=== PATIENT | female | born 1935 | race Caucasian/White ===

== ENCOUNTER 2016-05-15 11:50 | Inpatient (IN) | payer OTHER, MEDICARE ==
[~2016-05-15] VITALS: Ht 165.1 cm; Wt 63.7 kg
[~2016-05-15 11:50] MED LIST: ALBU0.08 INH; ALBU1AER9; ATRINSX NEB; BRVIN; BUDE0.5S NEB; FLUT0.15 NAE; MONT1TAB3 PO; OXYC1TAB3 PO
[2016-05-15 12:18] LABS: BASO % 0.3 %; BASO ABS # 0.04 K/uL (0-0.2); COMPLETE YES; EOS % 1.9 %; HEMATOCRIT 41.5 % (37-47); IG% 0.2 %; LYMPH % 12.7 %; LYMPH ABS # 1.51 K/uL (1.2-3.4); MEAN CELL VOLUME 94.5 fL (80-100); MEAN CORPUSCULAR HEMOGLOBIN 30.1 pg (25-34); MEAN CORPUSCULAR HGB CONC 31.8 g/dl (32-36); MEAN PLATELET VOLUME 10.4 fL (7.4-10.4); MONO % 14.6 %; NEUT % 70.3 %; PLATELET COUNT 247 K/uL (130-400); RED BLOOD COUNT 4.39 M/uL (4.2-5.4); WHITE BLOOD COUNT 11.88 K/uL (4.8-10.8)
[2016-05-15 12:26] LABS: BUN/CREATININE RATIO 31.4 (10-20); CALCIUM 9.3 mg/dl (8.5-10.1); CREATININE 0.92 mg/dl (0.60-1.20)
[2016-05-15 12:27] LABS: INR 1.1 (0.9-1.1); PROTHROMBIN TIME (PATIENT) 11.3 SECONDS (9.0-12.0)
[2016-05-15 12:36] LABS: ALB/GLOB RATIO 0.8 (0.9-2); THYROID STIMULATING HORMONE 0.705 uIu/ml (0.300-4.500)
[2016-05-15] MEDS ORDERED: OPTIRAY 320 IV PRN (13:00)
--- NOTE | 2016-05-15 13:41 | DIAGNOSTIC IMAGING REPORT ---
CT HEAD WITHOUT CONTRAST (CT) CLINICAL HISTORY: Altered level of consciousness. COMPARISON STUDY: 02/22/2015 TECHNIQUE: Axial CT of the brain is performed from the vertex to the skull base. IV contrast was not administered for this examination. CT DOSE: 2118.22 mGy.cm FINDINGS: No intra or extra-axial mass lesions are visualized. There is no CT evidence of acute cortical infarction. There is no evidence of midline shift. There is no acute hemorrhage. No calvarial fractures are visualized. There are moderate white matter hypodensities likely on a small vessel basis. There is mild ventricular prominence, proportional to the degree of volume loss. There is no evidence of acute sinusitis IMPRESSION: No acute intracranial findings Electronically signed by: Jason Yap M.D. 05/15/2016 1:40 PM
--- NOTE | 2016-05-15 13:51 | DIAGNOSTIC IMAGING REPORT ---
CT ANGIOGRAM OF THE CHEST, ABDOMEN, AND PELVIS CLINICAL HISTORY: Chest and abdominal pain. Altered level of consciousness. Possible acute dissection. COMPARISON STUDY: Noncontrast CT scan of the abdomen pelvis dated 05/09/2016 TECHNIQUE: Before and following the IV administration of 119 mL of Optiray-320, CT angiogram of the chest, abdomen, and pelvis was performed from the thoracic inlet to the proximal femurs. Images are reviewed in the axial, sagittal, and coronal planes. IV contrast was administered without complication. Imaged portions of the thyroid gland are normal in appearance. CT DOSE: FINDINGS: CHEST: Thoracic aorta: There is no evidence of thoracic aortic aneurysm or dissection. There are moderate atheromatous changes within the aortic arch and descending thoracic aorta. Several ulcerated plaques are visualized within the descending thoracic aorta. Atheromatous changes are present within the proximal left subclavian artery. Pulmonary vasculature: The pulmonary trunk is normal in caliber. There are no filling defects in the main, lobar, or segmental pulmonary branches to suggest pulmonary embolus. HEART: There are coronary artery calcifications present. Lungs and pleural spaces: There is severe pulmonary emphysema. There is no acute parenchymal consolidation. Mediastinum: There is no evidence of pathologic adenopathy So: There is no evidence of pathologic adenopathy Axilla: Clear. ABDOMEN AND PELVIS: Liver: There is mild hepatic steatosis. No focal masses are visualized. Gallbladder: Unremarkable. Spleen: Normal in size and attenuation. Pancreas: Unremarkable. Adrenal glands: Unremarkable. Kidneys: There is symmetric renal cortical enhancement. The kidneys are normal in size without hydronephrosis. Bowel: There are no transition zones indicate bowel obstruction. The appendix appears normal. There is no acute diverticulitis. There is mild distal small bowel wall hyperenhancement. This could indicate enteritis. Peritoneum: There is no intraperitoneal free air or abdominal ascites. There is a small fat-containing umbilical hernia and small fat-containing left inguinal hernia. Abdominal aorta: There are moderately advanced diffuse atheromatous changes present. There is a partially thrombosed 47 mm infrarenal abdominal aortic aneurysm. There are no findings to indicate rupture. There is no evidence of hemodynamically significant celiac, superior mesenteric, or renal artery stenosis. Adenopathy: None. Pelvic viscera: The bladder, and pelvic viscera are unremarkable. Skeletal structures: There are superior endplate T12 and L1 compression deformities. There are postsurgical changes within the lumbar spine with posterior spinal fusion IMPRESSION: 1. 47 mm partially thrombosed infrarenal abdominal aortic aneurysm. No evidence of rupture 2. No evidence of thoracic aortic aneurysm or dissection 3. Moderately advanced atheromatous changes within the thoracic and abdominal aorta 4. No evidence of bowel obstruction. No evidence of free air. Normal appendix 5. Mild distal small bowel hyperenhancement. An enteritis cannot be excluded Electronically signed by: Jason Yap M.D. 05/15/2016 1:49 PM
--- NOTE | 2016-05-15 13:57 | DIAGNOSTIC IMAGING REPORT ---
CHEST ONE VIEW PORTABLE CLINICAL HISTORY: Acute change in mental status. Back pain. Abdominal pain. COMPARISON STUDY: 05/09/2016 FINDINGS: The heart is normal in size. There is radiographic evidence of severe pulmonary emphysema. Spinal electrodes are visualized. There is no acute parenchymal consolidation. There is no failure.[ No pleural effusions are visualized. IMPRESSION: Severe pulmonary emphysema. No acute findings. Electronically signed by: Jason Yap M.D. 05/15/2016 1:55 PM
[2016-05-15 15:28] LABS: URINE APPEARANCE CLEAR (CLEAR); URINE BILIRUBIN NEG (NEG); URINE COLOR DK YELLOW; URINE EPITHELIAL CELL AUTO 20-30 /lpf (0-5); URINE NITRITE NEG (NEG); URINE SPECIFIC GRAVITY > 1.045 (1.000-1.030); UROBILINOGEN NEG (NEG); ZZUR CULT IF INDIC CLEAN CATCH YES
[2016-05-15 15:29] LABS: MANUAL MICROSCOPIC REQUIRED? NO; REVIEW REQ? NO
[2016-05-15 15:43] LABS: BENZODIAZEPINE, URINE NEG (NEG); COCAINE,URINE NEG (NEG); PHENCYCLIDINE, URINE NEG (NEG)
[2016-05-15] MEDS ORDERED: METOPROLOL TARTRATE 1 MG/ML VIAL IV STA (15:49)
[2016-05-15] MEDS ORDERED: METOPROLOL TARTRATE 1 MG/ML VIAL ONE ×2 (15:50→19:17)
[2016-05-15] MEDS ORDERED: IPRATROPIUM BROMIDE NEB SOLN 0.02% 2.5 ML VIAL INH PRN ×2 (16:00→20:30)
[2016-05-15] MEDS ORDERED: MULTI-VITAMIN INFUSION INJ 10 ML, THIAMINE HCL INJ 100 MG, FoLIC ACID INJ 1 MG in SODIU... IV ONE (16:30)
--- NOTE | 2016-05-15 17:58 | History and Physical ---
History & Physical Date & Time of Service: May 15, 2016 at 17:44 Chief Complaint: Amd/Abdominal Pain Primary Care Physician: Emigdio Draper D.O. History of Present Illness Source: patient, family The patient is a 81-year-old female brought to the emergency department with her daughter, with the daughter reporting the patient having issues with low back pain wrapping around to the front of her abdomen and pelvis bilaterally, with urinary incontinence issues and alteration in mental status. Mother has had a gradual decline in the last number of months. Her daughter reports that mother does have a significant alcohol use history, and also reports that her primary doctor is concerned as her symptoms may be related to excessive alcohol use. The patient did develop an episode of SVT with aberrancy while in the emergency department, during which she appeared to be more disoriented and disheveled. Past Medical/Surgical History Medical Problems: (1) COPD (chronic obstructive pulmonary disease) Status: Chronic (2) History of heart disease Status: Chronic Family History No significant family history Social History Smoking Status: Current Every Day Smoker Smokeless Tobacco Use: No Alcohol Use: heavy Drug Use: none Marital Status: Housing status: lives with family Immunizations History of Influenza Vaccine: N/A History of Tetanus Vaccine?: Yes Tetanus Immunization Date: May 14, 2005 History of Pneumococcal: Yes Pneumococcal Date: May 14, 2005 History of Hepatitis B Vaccine: No Multi-Drug Resistant Organisms History of MDRO: No Allergies Coded Allergies: Latex2 -Systemic Allergic Response (Verified Allergy, Unknown, HIVES, ITCHING SWELLING,, 05/15/16) Lisinopril (Verified Adverse Reaction, Mild, cough, 05/15/16) Home Medications Scheduled Arformoterol Tartrate (Brovana 15MCG/2ML Soln), 1 DOSE BID Budesonide Soln (Pulmicort Respules 0.5MG/2ML), 1 VIAL NEB BID Budesonide/Formoterol Fumarate (Symbicort 160/4.5 Inhaler ), 2 PUFFS INH BID Duloxetine HCl (Duloxetine HCl), 60 MG PO DAILY Fluticasone Propionate (Nasal) (Flonase Allergy Relief), 1 SPRAY LUCIA BID Losartan Potassium (Losartan Potassium), 25 MG PO DAILY Metoprolol Succ (Toprol Xl) (Toprol-Xl), 50 MG PO DAILY Montelukast Sodium (Singulair), 10 MG PO DAILY Oxygen (Oxygen), 2 LITERS NA HS Pantoprazole (Pantoprazole Sodium), 40 MG PO UD Prednisone Tab (Prednisone), 10 MG PO DAILY Simvastatin (Simvastatin), 20 MG PO QPM Tiotropium [place] (Spiriva Handihaler), 2 CAP INH DAILY Scheduled PRN Albuterol (Proair Hfa), 2 PUFFS Q4 PRN for SOB/Wheezing Albuterol Soln (Proventil 0.083% 2.5MG/3ML), 2.5 MG INH Q4 PRN for SOB/Wheezing Ipratropium [place] (Atrovent 0.02% Soln), 1 VIAL NEB Q4 PRN for SOB/Wheezing Oxycodone Immediate Rel Tab (Roxicodone Ir), 1-2 TAB PO Q4H PRN for Severe Pain Review of Systems The patient denies chest pain, palpitations, shortness of breath, cough, lower extremity swelling, vision change, hearing change, sore throat, fevers, chills, sweats, weight change, fatigue, nausea, vomiting abdominal pain, pelvic pain, blood in urine or stool, dysuria, rash, abnormal bruising or bleeding, imbalance , focal weakness, arthralgias or myalgias, neck pain, night sweats, or allergy symptoms. The review of systems is otherwise negative other than for that already noted above, and at least 10 systems have been reviewed. Physical Exam Vital Signs Date Time Temp Pulse Resp B/P Pulse Ox O2 Delivery O2 Flow Rate FiO2 05/15/16 16:13 121 127/72 05/15/16 15:49 178 20 149/98 98 Room Air 05/15/16 15:41 175 05/15/16 13:42 109 15 153/98 96 Nasal Cannula 2.0 05/15/16 12:24 113 05/15/16 11:58 94 Nasal Cannula 2.0 05/15/16 11:57 89 Room Air 05/15/16 11:57 36.4 113 24 129/95 89 Room Air The patient is awake, alert, but intermittently disoriented, more so after the development of SVT while in the ED, normocephalic and atraumatic, lying in bed and in no acute distress. HEENT--PERRL, EOMI, mucous membranes and oropharynx dry. Neck--supple, no JVD or bruits, thyroid normal, trachea midline, no adenopathy. Heart--normal S1 and S2, no extra beats, no murmurs, rubs or gallops. During SVT, patient was tachycardic and regular. Lungs--diminished throughout, no respiratory distress, no accessory muscle use. Abdomen--normal bowel sounds and soft, nontender and nondistended, no hernias or masses, no organomegaly. Extremities--no cyanosis, clubbing or edema. There are good distal pulses b/l. Dermatologic--normal skin turgor, normal color, warm and dry, no abnormal lymph nodes, no rash. Neurologic--cranial nerves II through XII grossly intact. Psychiatric--flat affect. Diagnostics Laboratory Results Results Past 24 Hours Test 05/15/16 11:45 05/15/16 11:56 05/15/16 13:15 05/15/16 14:50 Range/Units White Blood Count 11.88 4.8-10.8 K/uL Red Blood Count 4.39 4.2-5.4 M/uL Hemoglobin 13.2 12.0-16.0 g/dL Hematocrit 41.5 37-47 % Mean Corpuscular Volume 94.5 80-100 fL Mean Corpuscular Hemoglobin 30.1 25-34 pg Mean Corpuscular Hemoglobin Concent 31.8 32-36 g/dl Platelet Count 247 130-400 K/uL Mean Platelet Volume 10.4 7.4-10.4 fL Neutrophils (%) (Auto) 70.3 % Lymphocytes (%) (Auto) 12.7 % Monocytes (%) (Auto) 14.6 % Eosinophils (%) (Auto) 1.9 % Basophils (%) (Auto) 0.3 % Neutrophils # (Auto) 8.35 1.4-6.5 K/uL Lymphocytes # (Auto) 1.51 1.2-3.4 K/uL Monocytes # (Auto) 1.73 0.11-0.59 K/uL Eosinophils # (Auto) 0.23 0-0.5 K/uL Basophils # (Auto) 0.04 0-0.2 K/uL RDW Standard Deviation 44.2 36.4-46.3 fL RDW Coefficient of Variation 12.8 11.5-14.5 % Immature Granulocyte % (Auto) 0.2 % Immature Granulocyte # (Auto) 0.02 0.00-0.02 K/uL Prothrombin Time 11.3 9.0-12.0 SECONDS Prothromb Time International Ratio 1.1 0.9-1.1 Activated Partial Thromboplast Time 25.4 21.0-31.0 SECONDS Partial Thromboplastin Ratio 1.0 Sodium Level 139 136-145 mmol/L Potassium Level 4.0 3.5-5.1 mmol/L Chloride Level 99 98-107 mmol/L Carbon Dioxide Level 31 21-32 mmol/L Anion Gap 9.0 3-11 mmol/L Blood Urea Nitrogen 29 7-18 mg/dl Creatinine 0.92 0.60-1.20 mg/dl Est Creatinine Clear Calc Drug Dose 31.1 ml/min Estimated GFR () 68.6 Estimated GFR (Non- 59.2 BUN/Creatinine Ratio 31.4 10-20 Random Glucose 83 70-99 mg/dl Calcium Level 9.3 8.5-10.1 mg/dl Total Bilirubin 0.9 0.2-1 mg/dl Aspartate Amino Transf (AST/SGOT) 17 15-37 U/L Alanine Aminotransferase (ALT/SGPT) 18 12-78 U/L Alkaline Phosphatase 64 45-117 U/L Total Protein 8.0 6.4-8.2 gm/dl Albumin 3.6 3.4-5.0 gm/dl Globulin 4.4 2.5-4.0 gm/dl Albumin/Globulin Ratio 0.8 0.9-2 Thyroid Stimulating Hormone (TSH) 0.705 0.300-4.500 uIu/ml Bedside Glucose 91 70-90 mg/dl Carboxyhemoglobin 0.1 % THgb Ethyl Alcohol mg/dL < 3.0 0-3 mg/dl Urine Color DK YELLOW Urine Appearance CLEAR CLEAR Urine pH 5.0 4.5-7.5 Urine Specific [place] > 1.045 1.000-1.030 Urine Protein TRACE NEG Urine Glucose (UA) NEG NEG Urine Ketones 3+ NEG Urine Occult Blood TRACE NEG Urine Nitrite NEG NEG Urine Bilirubin NEG NEG Urine Urobilinogen NEG NEG Urine Leukocyte Esterase TRACE NEG Urine WBC (Auto) 10-30 0-5 /hpf Urine RBC (Auto) 0-4 0-4 /hpf Urine Hyaline Casts (Auto) 5-10 0-5 /lpf Urine Epithelial Cells (Auto) 20-30 0-5 /lpf Urine Bacteria (Auto) NEG NEG Urine Opiates Screen NEG NEG Urine Methadone, Qualitative NEG NEG Urine Barbiturates NEG NEG Urine Phencyclidine (PCP) Level NEG NEG Ur Amphetamine/Methamphetamine NEG NEG MDMA (Ecstasy) Screen NEG NEG Urine Benzodiazepines Screen NEG NEG Urine Cocaine Metabolite NEG NEG Urine Marijuana (THC) NEG NEG Test 05/15/16 16:06 05/15/16 16:36 Range/Units Vitamin B12 Level 544 211-911 pg/mL Folate > 24.00 >5.38 ng/mL Microbiology Results 05/15/16 Urine Culture, Received Pending Diagnostic Radiology Patient Name: SARY DOLL Unit Number: [id number] Dictated: 05/15/[id number] Transcribed: 05/15/16 135 ARG Printed Date/Time: [~ rep prt dt]/[~ rep prt tm] [~ rep ct labl] - [~ rep ct ivnm] [facility] [place] [address] Dictated: 05/15/[id number] Transcribed: 05/15/16 135 ARG Printed Date/Time: [~ rep prt dt]/[~ rep prt tm] [~ rep ct labl] - [~ rep ct ivnm] [~ rep ct add3]] CHEST ONE VIEW PORTABLE CLINICAL HISTORY: Acute change in mental status. Back pain. Abdominal pain. COMPARISON STUDY: 05/09/2016 FINDINGS: The heart is normal in size. There is radiographic evidence of severe pulmonary emphysema. Spinal electrodes are visualized. There is no acute parenchymal consolidation. There is no failure.[ No pleural effusions are visualized. IMPRESSION: Severe pulmonary emphysema. No acute findings. Electronically signed by: Jason Yap M.D. 05/15/2016 1:55 PM The status of this report is Signed. Draft = Not yet reviewed or approved by Radiologist. Signed = Reviewed and approved by Radiologist. <AttendingPhy></AttendingPhy> <FamilyPhy>Emigdio Draper D.O.</FamilyPhy> < PrimaryPhy>Emigdio Draper D.O.</PrimaryPhy> <UnitNumber>[id number]</ UnitNumber> <VisitNumber>[id number]</VisitNumber> <PatientName>SARY DOLL </PatientName> <DateOfBirth>1935</DateOfBirth> <Location>[facility]</Location> <ServiceDate>05/15/16</ServiceDate> <MNE>ESINDI</MNE> <OrderingPhy>ED, PROTOCOL< /OrderingPhy> <OrderingPhyMNE>f rep ord dr mckenzie</OrderingPhyMNE> <DictatingPhyMNE >f rep dict dr mckenzie</DictatingPhyMNE> <CCListMNE>f rep ct mne</CCListMNE> < AdmittingPhyMNE>f pt admit dr mckenzie</AdmittingPhyMNE> <AttendingPhyMNE>f pt attend dr mckenzie</AttendingPhyMNE> <ConsultingPhyMNE>f pt consult dr mckenzie</ConsultingPhyMNE> <FamilyPhyMNE>f pt fam dr mckenzie</FamilyPhyMNE> <OtherPhyMNE>f pt other dr mckenzie</OtherPhyMNE> < PrimaryPhyMNE>f pt prim care dr mckenzie</PrimaryPhyMNE> <ReferringPhyMNE>f pt referring dr mckenzie</ReferringPhyMNE> [~ rep ct add3]] CT ANGIOGRAM OF THE CHEST, ABDOMEN, AND PELVIS CLINICAL HISTORY: Chest and abdominal pain. Altered level of consciousness. Possible acute dissection. COMPARISON STUDY: Noncontrast CT scan of the abdomen pelvis dated 05/09/2016 TECHNIQUE: Before and following the IV administration of 119 mL of Optiray-320, CT angiogram of the chest, abdomen, and pelvis was performed from the thoracic inlet to the proximal femurs. Images are reviewed in the axial, sagittal, and coronal planes. IV contrast was administered without complication. Imaged portions of the thyroid gland are normal in appearance. CT DOSE: FINDINGS: CHEST: Thoracic aorta: There is no evidence of thoracic aortic aneurysm or dissection. There are moderate atheromatous changes within the aortic arch and descending thoracic aorta. Several ulcerated plaques are visualized within the descending thoracic aorta. Atheromatous changes are present within the proximal left subclavian artery. Pulmonary vasculature: The pulmonary trunk is normal in caliber. There are no filling defects in the main, lobar, or segmental pulmonary branches to suggest pulmonary embolus. HEART: There are coronary artery calcifications present. Lungs and pleural spaces: There is severe pulmonary emphysema. There is no acute parenchymal consolidation. Mediastinum: There is no evidence of pathologic adenopathy So: There is no evidence of pathologic adenopathy Axilla: Clear. ABDOMEN AND PELVIS: Liver: There is mild hepatic steatosis. No focal masses are visualized. Gallbladder: Unremarkable. Spleen: Normal in size and attenuation. Pancreas: Unremarkable. Adrenal glands: Unremarkable. Kidneys: There is symmetric renal cortical enhancement. The kidneys are normal in size without hydronephrosis. Bowel: There are no transition zones indicate bowel obstruction. The appendix appears normal. There is no acute diverticulitis. There is mild distal small bowel wall hyperenhancement. This could indicate enteritis. Peritoneum: There is no intraperitoneal free air or abdominal ascites. There is a small fat-containing umbilical hernia and small fat-containing left inguinal hernia. Abdominal aorta: There are moderately advanced diffuse atheromatous changes present. There is a partially thrombosed 47 mm infrarenal abdominal aortic aneurysm. There are no findings to indicate rupture. There is no evidence of hemodynamically significant celiac, superior mesenteric, or renal artery stenosis. Adenopathy: None. Pelvic viscera: The bladder, and pelvic viscera are unremarkable. Skeletal structures: There are superior endplate T12 and L1 compression deformities. There are postsurgical changes within the lumbar spine with posterior spinal fusion IMPRESSION: 1. 47 mm partially thrombosed infrarenal abdominal aortic aneurysm. No evidence of rupture 2. No evidence of thoracic aortic aneurysm or dissection 3. Moderately advanced atheromatous changes within the thoracic and abdominal aorta 4. No evidence of bowel obstruction. No evidence of free air. Normal appendix 5. Mild distal small bowel hyperenhancement. An enteritis cannot be excluded Patient Name: SARY DOLL Unit Number: [id number] Dictated: 05/15/[id number] Transcribed: 05/15/161337 ARG Printed Date/Time: [~ rep prt dt]/[~ rep prt tm] [~ rep ct labl] - [~ rep ct ivnm] [facility] [place] [address] Dictated: 05/15/[id number] Transcribed: 05/15/161337 ARG Printed Date/Time: [~ rep prt dt]/[~ rep prt tm] [~ rep ct labl] - [~ rep ct ivnm] CT HEAD WITHOUT CONTRAST (CT) CLINICAL HISTORY: Altered level of consciousness. COMPARISON STUDY: 02/22/2015 TECHNIQUE: Axial CT of the brain is performed from the vertex to the skull base. IV contrast was not administered for this examination. CT DOSE: 2118.22 mGy.cm FINDINGS: No intra or extra-axial mass lesions are visualized. There is no CT evidence of acute cortical infarction. There is no evidence of midline shift. There is no acute hemorrhage. No calvarial fractures are visualized. There are moderate white matter hypodensities likely on a small vessel basis. There is mild ventricular prominence, proportional to the degree of volume loss. There is no evidence of acute sinusitis IMPRESSION: No acute intracranial findings Electronically signed by: Jason Yap M.D. 05/15/2016 1:40 PM The status of this report is Signed. Draft = Not yet reviewed or approved by Radiologist. Signed = Reviewed and approved by Radiologist. <AttendingPhy></AttendingPhy> <FamilyPhy>Emigdio Draper D.O.</FamilyPhy> < PrimaryPhy>Emigdio Draper D.O.</PrimaryPhy> <UnitNumber>[id number]</ UnitNumber> <VisitNumber>[id number]</VisitNumber> <PatientName>LAVONDACIASARY Radha </PatientName> <DateOfBirth>1935</DateOfBirth> <Location>[facility]</Location> <ServiceDate>05/15/16</ServiceDate> <MNE>ESINDI</MNE> <OrderingPhy>[place] M.D.</OrderingPhy> <OrderingPhyMNE>f rep ord dr mckenzie</OrderingPhyMNE> < DictatingPhyMNE>f rep dict dr mckenzie</DictatingPhyMNE> <CCListMNE>f rep ct mne</ CCListMNE> <AdmittingPhyMNE>f pt admit dr mckenzie</AdmittingPhyMNE> <AttendingPhyMNE >f pt attend dr mckenzie</AttendingPhyMNE> <ConsultingPhyMNE>f pt consult dr mckenzie</ConsultingPhyMNE> <FamilyPhyMNE>f pt fam dr mckenzie</FamilyPhyMNE> <OtherPhyMNE>f pt other dr mckenzie</OtherPhyMNE> < PrimaryPhyMNE>f pt prim care dr mckenzie</PrimaryPhyMNE> <ReferringPhyMNE>f pt referring dr mckenzie</ReferringPhyMNE> EKG Initial EKG shows sinus tachycardia at 110, with no acute ST-T changes. Next Later rhythm monitor, shows SVT with aberrancy at a maximum rate of 160-170. Impression Assessment and Plan SVT with aberrancy--the patient initially had a sinus tachycardia that was compensatory secondary to dehydration. However, this did progress to SVT with aberrancy. Patient did receive Lopressor 5 mg IV 2, with some improvement heart rate, and aggressive fluid rehydration with normal saline wide open on emergency department. She was then prescribed digoxin 0.25 mg IV due to her pressure dropping from 140/90 to 97/82, with the digoxin yet to be given. Patient does have a significant history of alcohol use/abuse, and part of this rate issue may be due to alcohol withdrawal. She will be admitted on Lopressor 5 mg IV every 4 hours with hold parameters, and banana bag every morning to 100 mils per hour, followed by normal saline with 20 mEq acid 100 mils per hour. We 'll order a 2-D echocardiogram with Dopplers, and follow serial cardiac enzymes. Continue metoprolol succinate 50 mg by mouth daily. COPD/hypoxia--continue Pulmicort Respules 0.5 mg using 1 vial per nebulizer twice a day, Spiriva HandiHaler 12 and capsules inhaled daily. Increase prednisone from 10-20 mg by mouth daily. Hold Symbicort 160/4.52 puffs twice a day. Hold for Brovana. We'll have available Xopenex with Atrovent nebulizer use every 2 hours when necessary. Depression--continue duloxetine 60 mg by mouth daily. Hypercholesterolemia-- continue simvastatin 20 mg by mouth every afternoon. GERD--continue pantoprazole 40 mg by mouth daily. Allergic rhinitis--continue Flonase nasal spray 1 spray each nostril twice a day Alcohol use history--as noted above, withdrawal need to continue his similar symptoms. We'll have IV Ativan to use when necessary. Memory dysfunction-CT of the head was normal. When she is more medically stable , we will order an MRI of the brain. Her symptoms may be related to SDAT, vascular dementia, or Warnicke's encephalopathy. We placed on banana bag as noted above, and oral B vitamins as well. 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 We will consult PT, and OT. She may require a rehabilitation stay such as at [facility]. We'll work on repletion of vitamins, and General Nutrition state. Level of Care Telemetry Advanced Directives Existing Advance Directive: No Existing Living Will: No Existing Power of Facilities Mechanical Design Engineer: No Resuscitation Status FULL RESUSCITATION VTE Prophylaxis VTE Risk Assessment Done? Y/N: Yes Risk Level: Low Given or contraindicated: SCD's
[2016-05-15] MEDS ORDERED: DIGOXIN IV 250 MCG in SYRINGE 9 ML IV ONE (18:00)
--- NOTE | 2016-05-15 18:36 | DIAGNOSTIC IMAGING REPORT ---
ABDOMEN AND PELVIS CT WITH ORAL CONTRAST CT DOSE: 265.50 mGy.cm HISTORY: Pain abdomen and pelvis pain and urinary incontinence TECHNIQUE: Multiaxial CT images of the abdomen and pelvis were performed following the use of oral contrast. COMPARISON STUDY: CT abdomen and pelvis same date FINDINGS: Lung bases are clear. Liver spleen and pancreas are unremarkable. Gallbladder is negative for distention. Kidneys show moderate cortical scarring. No evidence for hydronephrosis or obstructive change. Stable 4.7 cm infrarenal aneurysm abdominal aorta. Bowel pattern is considered nonobstructive. Pancreas is unremarkable. Postoperative changes again noted in the lumbar region. Mild chronic sigmoid diverticulosis again unchanged. IMPRESSION: 1. Fatty infiltration of liver. 2. Stable 4.7 cm aneurysm infrarenal aspect abdominal aorta. 3. Nonobstructive bowel pattern. 4. Mild chronic sigmoid diverticulosis with no acute diverticulitis 5. Normal appendix Electronically signed by: Paul Whaley M.D. 05/15/2016 6:34 PM
[2016-05-15 18:48] VITALS: BP 95/63; PULSE 93; TEMP 36.6; O2SAT 97
--- NOTE | 2016-05-15 19:03 | EMERGENCY ROOM VISIT NOTE ---
History Report prepared by Kaitlin: Nely Chen Under the Supervision of: Dr. Grupo Vegas M.D. First contact with patient: 12:39 Chief Complaint: ALTERED MENTAL STATUS Stated Complaint: AMD/ABDOMINAL PAIN Nursing Triage Summary: back/abd pain, hx of AAA denies n/v/d has a nerve stimulator in her back History of Present Illness The patient is a 81 year old female who presents to the Emergency Room with complaints of an episode of altered mental status occurring PRACTICE LEAD. The patient's daughter has been out of town for 2 days. She returned today and found the house in disarray and the patient was not acting appropriately. She was acting confused. The patient was seen in the ED 2 weeks ago and was prescribed oxycodone at that time. She has been taking that for her back pain. Daughter and note that there was no oxycodone left in the bottle today and they suspect that the patient took more than she is supposed to. The patient is currently complaining of abdominal pain and lower back pain that is worse with movement and alleviate when lying flat. She rates her current pain as a 3/10 in severity. The patient denies feeling confused. She denies nausea, vomiting, diarrhea, urinary symptoms, headache, and pain or swelling in her legs. She notes some increased coughing but denies any new or worsening shortness of breath. She is on 2L of oxygen at home. She is on prednisone. The patient has oil heat in her home. She notes that her is sick in the ED today too. She denies any working carbon monoxide detectors in their home. Source of History: patient, family (daughter), spouse/significant other Onset: PRACTICE LEAD Position: other (global) Symptom Intensity: 3/10 Quality: other (confusion) Timing: other (episode) Modifying Factors (Worsening): movement Modifying Factors (Relieving): other (lying flat) Associated Symptoms: + abdominal pain, + back pain, + cough, No SOB, No diarrhea, No headache, No nausea, No urinary symptoms, No vomiting Review of Systems See HPI for pertinent positives & negatives. A total of 10 systems reviewed and were otherwise negative. Past Medical & Surgical Medical Problems: (1) Abdom Aortic Aneurysm (2) Congestive Heart Failure Nos (3) COPD (chronic obstructive pulmonary disease) (4) History of heart disease (5) Hyperlipidemia Nec/Nos (6) Hypertension Nos (7) Myalgia And Myositis Nos (8) Postlaminect Synd-Lumbar (9) SVT (supraventricular tachycardia) Social History Problems: (1) Tobacco Use Disorder Old medical records were reviewed. Nurse's notes were reviewed and I agree with. Family History No significant family history Social History Smoking Status: Current Every Day Smoker Alcohol Use: heavy Drug Use: none Marital Status: Housing Status: lives with significant other Occupation Status: unemployed Current/Historical Medications Scheduled Arformoterol Tartrate (Brovana 15MCG/2ML Soln), 1 DOSE BID Budesonide Soln (Pulmicort Respules 0.5MG/2ML), 1 VIAL NEB BID Budesonide/Formoterol Fumarate (Symbicort 160/4.5 Inhaler ), 2 PUFFS INH BID Duloxetine HCl (Duloxetine HCl), 60 MG PO DAILY Fluticasone Propionate (Nasal) (Flonase Allergy Relief), 1 SPRAY LUCIA BID Losartan Potassium (Losartan Potassium), 25 MG PO DAILY Metoprolol Succ (Toprol Xl) (Toprol-Xl), 50 MG PO DAILY Montelukast Sodium (Singulair), 10 MG PO DAILY Oxygen (Oxygen), 2 LITERS NA HS Pantoprazole (Pantoprazole Sodium), 40 MG PO UD Prednisone Tab (Prednisone), 10 MG PO DAILY Simvastatin (Simvastatin), 20 MG PO QPM Tiotropium [place] (Spiriva Handihaler), 2 CAP INH DAILY Scheduled PRN Albuterol (Proair Hfa), 2 PUFFS Q4 PRN for SOB/Wheezing Albuterol Soln (Proventil 0.083% 2.5MG/3ML), 2.5 MG INH Q4 PRN for SOB/Wheezing Ipratropium [place] (Atrovent 0.02% Soln), 1 VIAL NEB Q4 PRN for SOB/Wheezing Oxycodone Immediate Rel Tab (Roxicodone Ir), 1-2 TAB PO Q4H PRN for Severe Pain Allergies Coded Allergies: Latex2 -Systemic Allergic Response (Verified Allergy, Unknown, HIVES, ITCHING SWELLING,, 05/15/16) Lisinopril (Verified Adverse Reaction, Mild, cough, 05/15/16) Physical Exam Vital Signs Date Time Temp Pulse Resp B/P Pulse Ox O2 Delivery O2 Flow Rate FiO2 05/15/16 15:49 178 20 149/98 98 Room Air 05/15/16 15:41 175 05/15/16 13:42 109 15 153/98 96 Nasal Cannula 2.0 05/15/16 12:24 113 05/15/16 11:58 94 Nasal Cannula 2.0 05/15/16 11:57 89 Room Air 05/15/16 11:57 36.4 113 24 129/95 89 Room Air Physical Exam General: Well developed well nourished non ill appearing older female in no acute distress, breathing comfortably on room air. Normal speech, alert and oriented x3, answering questions appropriately. HEENT: Normal cephalic atraumatic. Pupils are equal round and reactive to light. Sclerae anicteric. Extraocular movements are intact. Oropharynx is pink with moist mucous membranes. No swelling of the mouth lips or tongue. Neck: Supple with a midline trachea. No meningeal signs or stiffness, no JVD or bruits. No Stridor. Chest: Clear to auscultation bilaterally. No wheezes or rhonchi. No increased work of breathing. Heart: regular rate and rhythm. Abdomen: Soft nontender, nondistended without rebound guarding or rigidity. Extremities: No cyanosis clubbing or edema. No calf tenderness or assymetry Spine/Back. Non tender to palpation. No CVA tenderness. Low back pain with movement. Skin: Good turgor without rashes. Neurologic exam: Cranial nerves two through 12 are intact. Motor and sensation are intact and symmetrical throughout. No tremor. Medical Decision & Procedures ER Provider Diagnostic Interpretation: Radiology results as stated below per my review and radiologist interpretation: CHEST ONE VIEW PORTABLE CLINICAL HISTORY: Acute change in mental status. Back pain. Abdominal pain. COMPARISON STUDY: 05/09/2016 FINDINGS: The heart is normal in size. There is radiographic evidence of severe pulmonary emphysema. Spinal electrodes are visualized. There is no acute parenchymal consolidation. There is no failure.[ No pleural effusions are visualized. IMPRESSION: Severe pulmonary emphysema. No acute findings. Electronically signed by: Jason Yap M.D. 05/15/2016 1:[address] ANGIOGRAM OF THE CHEST, ABDOMEN, AND PELVIS CLINICAL HISTORY: Chest and abdominal pain. Altered level of consciousness. Possible acute dissection. COMPARISON STUDY: Noncontrast CT scan of the abdomen pelvis dated 05/09/2016 TECHNIQUE: Before and following the IV administration of 119 mL of Optiray-320, CT angiogram of the chest, abdomen, and pelvis was performed from the thoracic inlet to the proximal femurs. Images are reviewed in the axial, sagittal, and coronal planes. IV contrast was administered without complication. Imaged portions of the thyroid gland are normal in appearance. CT DOSE: FINDINGS: CHEST: Thoracic aorta: There is no evidence of thoracic aortic aneurysm or dissection. There are moderate atheromatous changes within the aortic arch and descending thoracic aorta. Several ulcerated plaques are visualized within the descending thoracic aorta. Atheromatous changes are present within the proximal left subclavian artery. Pulmonary vasculature: The pulmonary trunk is normal in caliber. There are no filling defects in the main, lobar, or segmental pulmonary branches to suggest pulmonary embolus. HEART: There are coronary artery calcifications present. Lungs and pleural spaces: There is severe pulmonary emphysema. There is no acute parenchymal consolidation. Mediastinum: There is no evidence of pathologic adenopathy So: There is no evidence of pathologic adenopathy Axilla: Clear. ABDOMEN AND PELVIS: Liver: There is mild hepatic steatosis. No focal masses are visualized. Gallbladder: Unremarkable. Spleen: Normal in size and attenuation. Pancreas: Unremarkable. Adrenal glands: Unremarkable. Kidneys: There is symmetric renal cortical enhancement. The kidneys are normal in size without hydronephrosis. Bowel: There are no transition zones indicate bowel obstruction. The appendix appears normal. There is no acute diverticulitis. There is mild distal small bowel wall hyperenhancement. This could indicate enteritis. Peritoneum: There is no intraperitoneal free air or abdominal ascites. There is a small fat-containing umbilical hernia and small fat-containing left inguinal hernia. Abdominal aorta: There are moderately advanced diffuse atheromatous changes present. There is a partially thrombosed 47 mm infrarenal abdominal aortic aneurysm. There are no findings to indicate rupture. There is no evidence of hemodynamically significant celiac, superior mesenteric, or renal artery stenosis. Adenopathy: None. Pelvic viscera: The bladder, and pelvic viscera are unremarkable. Skeletal structures: There are superior endplate T12 and L1 compression deformities. There are postsurgical changes within the lumbar spine with posterior spinal fusion IMPRESSION: 1. 47 mm partially thrombosed infrarenal abdominal aortic aneurysm. No evidence of rupture 2. No evidence of thoracic aortic aneurysm or dissection 3. Moderately advanced atheromatous changes within the thoracic and abdominal aorta 4. No evidence of bowel obstruction. No evidence of free air. Normal appendix 5. Mild distal small bowel hyperenhancement. An enteritis cannot be excluded Electronically signed by: Jason Yap M.D. 05/15/2016 1:[address] HEAD WITHOUT CONTRAST (CT) CLINICAL HISTORY: Altered level of consciousness. COMPARISON STUDY: 02/22/2015 TECHNIQUE: Axial CT of the brain is performed from the vertex to the skull base. IV contrast was not administered for this examination. CT DOSE: 2118.22 mGy.cm FINDINGS: No intra or extra-axial mass lesions are visualized. There is no CT evidence of acute cortical infarction. There is no evidence of midline shift. There is no acute hemorrhage. No calvarial fractures are visualized. There are moderate white matter hypodensities likely on a small vessel basis. There is mild ventricular prominence, proportional to the degree of volume loss. There is no evidence of acute sinusitis IMPRESSION: No acute intracranial findings Electronically signed by: Jason Yap M.D. 05/15/2016 1:40 PM Laboratory Results 05/15/16 11:45 Red Blood Count 4.39, Mean Corpuscular Volume 94.5, Mean Corpuscular Hemoglobin 30.1, Mean Corpuscular Hemoglobin Concent 31.8, Mean Platelet Volume 10.4, Neutrophils (%) (Auto) 70.3, Lymphocytes (%) (Auto) 12.7, Monocytes (%) (Auto) 14.6, Eosinophils (%) (Auto) 1.9, Basophils (%) (Auto) 0.3, Neutrophils # (Auto ) 8.35, Lymphocytes # (Auto) 1.51, Monocytes # (Auto) 1.73, Eosinophils # (Auto ) 0.23, Basophils # (Auto) 0.04 05/15/16 11:45 Test 05/15/16 11:45 05/15/16 11:56 05/15/16 13:15 05/15/16 14:50 White Blood Count 11.88 K/uL (4.8-10.8) Red Blood Count 4.39 M/uL (4.2-5.4) Hemoglobin 13.2 g/dL (12.0-16.0) Hematocrit 41.5 % (37-47) Mean Corpuscular Volume 94.5 fL (80-100) Mean Corpuscular Hemoglobin 30.1 pg (25-34) Mean Corpuscular Hemoglobin Concent 31.8 g/dl (32-36) Platelet Count 247 K/uL (130-400) Mean Platelet Volume 10.4 fL (7.4-10.4) Neutrophils (%) (Auto) 70.3 % Lymphocytes (%) (Auto) 12.7 % Monocytes (%) (Auto) 14.6 % Eosinophils (%) (Auto) 1.9 % Basophils (%) (Auto) 0.3 % Neutrophils # (Auto) 8.35 K/uL (1.4-6.5) Lymphocytes # (Auto) 1.51 K/uL (1.2-3.4) Monocytes # (Auto) 1.73 K/uL (0.11-0.59) Eosinophils # (Auto) 0.23 K/uL (0-0.5) Basophils # (Auto) 0.04 K/uL (0-0.2) RDW Standard Deviation 44.2 fL (36.4-46.3) RDW Coefficient of Variation 12.8 % (11.5-14.5) Immature Granulocyte % (Auto) 0.2 % Immature Granulocyte # (Auto) 0.02 K/uL (0.00-0.02) Prothrombin Time 11.3 SECONDS (9.0-12.0) Prothromb Time International Ratio 1.1 (0.9-1.1) Activated Partial Thromboplast Time 25.4 SECONDS (21.0-31.0) Partial Thromboplastin Ratio 1.0 Anion Gap 9.0 mmol/L (3-11) Est Creatinine Clear Calc Drug Dose 31.1 ml/min Estimated GFR () 68.6 Estimated GFR (Non- 59.2 BUN/Creatinine Ratio 31.4 (10-20) Calcium Level 9.3 mg/dl (8.5-10.1) Total Bilirubin 0.9 mg/dl (0.2-1) Aspartate Amino Transf (AST/SGOT) 17 U/L (15-37) Alanine Aminotransferase (ALT/SGPT) 18 U/L (12-78) Alkaline Phosphatase 64 U/L (45-117) Total Protein 8.0 gm/dl (6.4-8.2) Albumin 3.6 gm/dl (3.4-5.0) Globulin 4.4 gm/dl (2.5-4.0) Albumin/Globulin Ratio 0.8 (0.9-2) Thyroid Stimulating Hormone (TSH) 0.705 uIu/ml (0.300-4.500) Bedside Glucose 91 mg/dl (70-90) Carboxyhemoglobin 0.1 % THgb Ethyl Alcohol mg/dL < 3.0 mg/dl (0-3) Urine Color DK YELLOW Urine Appearance CLEAR (CLEAR) Urine pH 5.0 (4.5-7.5) Urine Specific [place] > 1.045 (1.000-1.030) Urine Protein TRACE (NEG) Urine Glucose (UA) NEG (NEG) Urine Ketones 3+ (NEG) Urine Occult Blood TRACE (NEG) Urine Nitrite NEG (NEG) Urine Bilirubin NEG (NEG) Urine Urobilinogen NEG (NEG) Urine Leukocyte Esterase TRACE (NEG) Urine WBC (Auto) 10-30 /hpf (0-5) Urine RBC (Auto) 0-4 /hpf (0-4) Urine Hyaline Casts (Auto) 5-10 /lpf (0-5) Urine Epithelial Cells (Auto) 20-30 /lpf (0-5) Urine Bacteria (Auto) NEG (NEG) Urine Opiates Screen NEG (NEG) Urine Methadone, Qualitative NEG (NEG) Urine Barbiturates NEG (NEG) Urine Phencyclidine (PCP) Level NEG (NEG) Ur Amphetamine/Methamphetamine NEG (NEG) MDMA (Ecstasy) Screen NEG (NEG) Urine Benzodiazepines Screen NEG (NEG) Urine Cocaine Metabolite NEG (NEG) Urine Marijuana (THC) NEG (NEG) Laboratory studies as stated above per my review. Medications Administered Medications (Trade) Dose Ordered Sig/Lupe Route Start Time Stop Time Status Last Admin Dose Admin Metoprolol Tartrate (Lopressor Iv) 5 mg STK-MED ONCE .ROUTE 05/15/16 15:50 05/15/16 15:51 DC 05/15/16 16:13 5 MG ECG Indication: altered mental status Rate (beats per minute): 110 Rhythm: sinus tachycardia Findings: no acute ischemic change, other (poor baseline) Comparison ECG Date: 05/09/16 Change: no significant change ED Course 1239: Past medical records reviewed. The patient was evaluated in room A9B, and a complete history and physical examination were performed. 1402: The patient is doing well at this time. 1428: I reassessed the patient at this time. She is resting comfortably. I discussed the results and treatment plan with the patient and her daughter. I answered all pertaining questions that they had. They expressed understanding and verbalized agreement. 1443: I spoke with Dr. Ace. We discussed the patients results and treatment plan. The patient will be evaluated by the [facility] for further management. 1501: I updated the patient and her daughter. They are in agreement with the treatment plan. 1543: The patient went into a rapid heart rate. Dr. Ace was at the bedside. 1606: I reassessed the patient at this time. She is resting comfortably. Medical Decision Differential diagnoses includes lumbar disc disease, degenerative lumbar disease , infection , UTI, COPD exacerbation. AAA. This patient comes in as described above. She was placed on monitoring and evaluation advisor in room A9. She's been having back and abdominal pain. Her has been having a hard time taking care of at home as his he's been sick and he is typically the caregiver. She was seen here several days ago and had a CAT scan of her back and abdomen which showed a 4+ centimeter aneurysm that had grown slightly compared to previous. The patient symptoms are worse when she moves, she denies dysuria or hematuria. By report she may have had some confusion but does not seem to be confused at present. She has no chest pain shows breath or palpitations. IV access was established was hydrated IV normal saline. Multiple blood tests was obtained as well as imaging and EKG. CAT scan of her head was unremarkable. CAT scan of her chest abdomen and pelvis with IV contrast did not show any evidence of ruptured aneurysm and no significant change from previous no other acute pathology seen. She has a difficult to interpret EKG due to her stimulator and background information but appears to be sinus rhythm with a normal rate without ischemic changes troponin is not elevated. She has no significant electrolyte or metabolic abnormalities. I did talk to her daughter at length and she is concerned that the patient has been is weak and is not drinking at home and has been had some confusion. Some this may be medication related. I did consult Dr. Maldonado to see her. While she was in the ER, she did spike her heart rate up into the 160s. It was difficult to interpret EKG due to the artifact but I think it most likely is A. fib with a rapid rate. She was given IV hydration as a do think she is dehydrated she was given Lopressor IV heart rate has come down with this episode she's been asymptomatic. I do think she needs to be admitted for further treatment and evaluation. Consults Time Called: 1440 Consulting Physician: Dr. Ace Returned Call: [address] Ace. We discussed the patients results and treatment plan. The patient will be evaluated by the [facility] for further management. Impression Primary Impression: Atrial fibrillation with RVR Additional Impressions: Weakness, Back pain, AAA (abdominal aortic aneurysm) Scribe Attestation The scribe's documentation has been prepared under my direction and personally reviewed by me in its entirety. I confirm that the note above accurately reflects all work, treatment, procedures, and medical decision making performed by me. Departure Information Dispostion Being Evaluated By Hospitalist Referrals Emigdio Draper D.O. (PCP) Patient Instructions A Signature Page, [facility]
[2016-05-15] MEDS: NSS + 20MEQ KCL 1000ML 1,000 ML IV SCH (19:17)
[2016-05-15] MEDS: METOPROLOL TARTRATE 1 MG/ML VIAL IV. SCH (19:20)
[2016-05-15 19:30] VITALS: O2SAT 97; Ht 165.1 cm; Wt 63.7 kg
[2016-05-15] MEDS ORDERED: NURSING VERBAL MED ORDER ONE ×2 (19:30)
[2016-05-15] MEDS ORDERED: METOPROLOL TARTRATE 1 MG/ML VIAL IV ONE (19:45)
[2016-05-15 20:00] VITALS: PULSE 91; O2SAT 94; O2SAT 97
[2016-05-15] MEDS: BUDESONIDE 0.5 MG/2 ML VIAL (PULMICORT) INH SCH (20:00)
[2016-05-15] MEDS ORDERED: LEVALBUTEROL/IPRATROPIUM NEB INH PRN (20:15)
[2016-05-15] MEDS ORDERED: LEVALBUTEROL 1.25MG/0.5ML NEB INH PRN (20:30)
[2016-05-15] MEDS: SIMVASTATIN 20 MG TAB PO SCH (20:52)
[2016-05-15] MEDS: FLUTICASONE PROPIONATE NA SPR 16 GM BTL NAE SCH (20:53)
[2016-05-15] MEDS ORDERED: BUDESONIDE/FORMOTEROL FUMARATE 160/4.5 60 PUFFS/INHALER INH SCH (21:00)
[2016-05-15 21:36] VITALS: BP 135/77; PULSE 103
[2016-05-16] VITALS (16 sets, daily range): BP systolic 123–165; BP diastolic 64–93; PULSE 80–99; TEMP 36.5–37.2; O2SAT 95–99
[2016-05-16] MEDS: METOPROLOL TARTRATE 1 MG/ML VIAL IV. SCH ×3 (00:15→13:40)
[2016-05-16] MEDS: NSS + 20MEQ KCL 1000ML 1,000 ML IV SCH ×3 (02:37→21:11)
[2016-05-16] MEDS ORDERED: INFLUENZA VIRUS QUAD VACCINE 0.5 ML SYR IM. ONE (04:30)
[2016-05-16] MEDS ORDERED: INFLUENZA ADMINISTRATION CHARGE ONE (04:30)
[2016-05-16] MEDS ORDERED: PNEUMOCOCCAL POLYSACCHARIDES 25 MCG/0.5 ML VIAL/SYR IM. ONE (04:30)
[2016-05-16] MEDS ORDERED: PNEUMOCOCCAL ADMINISTRATION CHARGE ONE (04:30)
[2016-05-16 07:05] LABS: BASO % 0.2 %; BASO ABS # 0.02 K/uL (0-0.2); COMPLETE YES; EOS % 2.3 %; HEMATOCRIT 32.6 % (37-47); IG% 0.3 %; LYMPH % 12.1 %; LYMPH ABS # 1.22 K/uL (1.2-3.4); MEAN CELL VOLUME 93.9 fL (80-100); MEAN CORPUSCULAR HGB CONC 31.9 g/dl (32-36); MEAN PLATELET VOLUME 10.4 fL (7.4-10.4); MONO % 17.2 %; NEUT % 67.9 %; PLATELET COUNT 201 K/uL (130-400); RED BLOOD COUNT 3.47 M/uL (4.2-5.4); WHITE BLOOD COUNT 10.09 K/uL (4.8-10.8)
[2016-05-16] MEDS: FLUTICASONE PROPIONATE NA SPR 16 GM BTL NAE SCH ×2 (07:29→20:35)
[2016-05-16] MEDS: PANTOprazole SOD 40 MG TAB PO SCH (07:30)
[2016-05-16] MEDS: NICOTINE 14 MG/24 HR TDSY TD SCH (07:30)
[2016-05-16] MEDS: LOSARTAN POTASSIUM 25 MG TAB PO SCH (07:31)
[2016-05-16] MEDS: DULOXETINE HCL 60 MG CAP PO SCH (07:31)
[2016-05-16] MEDS: THIAMINE HCL 50 MG TAB PO SCH (07:31)
[2016-05-16] MEDS: MONTELUKAST SOD 10 MG TAB PO SCH (07:32)
[2016-05-16 07:38] LABS: BUN/CREATININE RATIO 22.7 (10-20); CALCIUM 8.1 mg/dl (8.5-10.1); CREATININE 0.6 mg/dl (0.60-1.20); POTASSIUM 4.1 mmol/L (3.5-5.1)
--- NOTE | 2016-05-16 07:57 | Family Medicine Progress Note ---
Progress Note Date of Service May 16, 2016. Subjective Pt evaluation today including: conversation w/ patient, physical exam, chart review, lab review The patient was seen and examined at bedside. Telemetry overnight showed sinus tach in the 100s. Pt has had several episodes of urinary and bowel incontinence (unable to make it to the bathroom in time). Pt also was discussing with her the location of the car keys, as she might sign out AMA. Pt feels fine. Denies any recent history of alcohol use (except socially, maybe a beer or two), pt denies having a bottle of opiates. Pt is complaining of longstanding back pain. Plan of care was described to the patient and all questions were answered. Constitutional: No chills, No fever, No sweats, No weight loss Respiratory: No cough, No shortness of breath, No sputum, No wheezing Cardiovascular: No chest pain, No edema, No orthopnea Musculoskeletal: + problem reported (back pain, chronic) Psychiatric: No depression symptoms Assessment and Plan 81F with a PMHx of alcohol abuse and chronic back pain brought in to the ER by her daughter for AMS, suspicious of acute opiate intoxication or rebound from intoxication. Admitted for SVT and pt was placed on telemetry. Sinus tachycardia (previously SVT) - Pt denies chest pain at present, tele showed sinus tachycardia in the 100s. - c/w Metoprolol 50mg QAM. - Echocardiogram: Normal LV chamber size and wall thickness. Normal LV systolic function,EF 60-65%. No segmental left ventricular wall motion abnormalities are noted. Grade I diastolic dysfunction. No significant valvular pathology. - Will continue to observe, cardiology consulted. Increased Urinary Frequency - Will repeat UA since previous was contaminated. Chronic Back Pain - chronic issue, no new changes. - Oxycodone 5mg PO Q6H PRN. 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 - Urine tox was negative, negative ethyl alcohol level. - c/w thiamine 50mg, c/w banana bag 150mls/hr, c/w Vitamin B12 - c/w nicotine patch. - Pt was placed on 1-1 observation due to animated character and tendency to get out of bed on her own. COPD/hypoxia - Pt is on 2LNC, no respiratory complaints at this time. - c/w Singular 10mg daily - c/w Prednisone 10mg. Depression -c/w duloxetine 60 mg by mouth daily. Hypercholesterolemia - c/w simvastatin 20 mg by mouth every afternoon. HTN - c/w Losartan 25mg PO daily. GERD - continue pantoprazole 40 mg by mouth daily. Allergic rhinitis - continue Flonase nasal spray 1 spray each nostril twice a day Dispo - c/w OT and PT - Discharge planning eval - may require rehab. - Full Code. - DVT Proph: Lovenox 30mg QAM. Resident Physician Supervision Note: I was present with the resident during the history and exam. I discussed the case with the resident and agree with the findings and plan as documented in the note. Any exceptions or clarifications are listed here: Patient is well known to me from outpatient office. Interestingly, she does not have a true dementia as she recently scored a 29/30 on a MMSE. 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 The may be some sundowning or medication side effect complicating her mental status as well. Discussed with cardiology service - they will see her as they are familiar with her from the outpatient office as well. Will discuss with daughter in terms of disposition - there is a question if the patient can care for herself at home. Documented By: Emigdio Draper Resident Involvement: Resident Care Provided Care Provided: Adult Hospital Medicine
[2016-05-16] MEDS: BUDESONIDE 0.5 MG/2 ML VIAL (PULMICORT) INH SCH ×2 (08:00→19:30)
--- NOTE | 2016-05-16 08:53 | Clinical Documentation Query ---
IRINEO De La Paz : CLINICAL DOCUMENTATION QUERY Patient is a 81 year old female admitted for SVT. ED provider documentation includes note of 2L of oxygen utilization at home. Notable PMH includes COPD as she is a current every day smoker. Please clarify as clinically appropriate as this directly affects DRG assignment. Thank you. In your clinical opinion is this patient being managed for: ( ) Chronic hypoxemic respiratory failure ( ) Other explanation of clinical findings (Please Explain) ( ) Unable to determine (Please Define) ( ) Need to Discuss ( ) Not Agree Please send this to Dr. Yovany Draper, attending in charge of this patient. Thank you, Irineo The medical record reflects the following clinical findings, treatment, and risk factors. Clinical Indicators: As above Treatment: Oxygen supplementation. Risk Factors: COPD secondary to smoking Please clarify and document your clinical opinion in the progress notes and discharge summary. Terms such as "probable", "suspected", "likely", "questionable", "possible", or "still to be ruled out" are acceptable. IF IN AGREEMENT, YOU MUST DOCUMENT ABOVE DIAGNOSTIC STATEMENT IN DAILY PROGRESS NOTES AND DISCHARGE SUMMARY. This document is not part of the patient's record. Thank You, Grupo Gonzalez, RN [phone]
[2016-05-16] MEDS: MULTI-VITAMIN INFUSION INJ 10 ML, THIAMINE HCL INJ 100 MG, FoLIC ACID INJ 1 MG in SODIU... IV SCH (10:24)
--- NOTE | 2016-05-16 13:16 | ECHOCARDIOGRAM REPORT ---
*NOTICE TO RECEIVING REPUBLICAN AGENCY This information is strictly Confidential and protected under [place] law. [place] law prohibits you from making any further disclosure of this information unless further disclosure is expressly permitted by the written consent of the person to whom it pertains or is authorized by law. A general authorization for the release of medical or other information is not sufficient for this purpose. Hospital accepts no responsibility if the information is made available to any other person, INCLUDING THE PATIENT. Interpretation Summary * Name: SARY DOLL Study Date: 05/16/2016 09:23 AM BP: 165/93 mmHg * Patient Location: C.2T\S\S240\S\1 HR: 80 * : 1935 (M/d/yyyy) Gender: Female Height: 66 in * Age: 81 yrs Ethnicity: CA Weight: 87 lb * Ordering Physician: Lola Albarado * Performed By: Alanna Garcia * * Reason For Study: SVT * BSA: 1.4 m2 * -- Conclusions -- * Normal LV chamber size and wall thickness. * Normal LV systolic function,EF 60-65%. * No segmental left ventricular wall motion abnormalities are noted. * Grade I diastolic dysfunction. * No significant valvular pathology. Procedure Details * A complete two-dimensional transthoracic echocardiogram was performed (2D, M-mode, Doppler and color flow Doppler). Left Ventricle * The left ventricle is normal in size. * There is normal left ventricular wall thickness. * Ejection Fraction = 60-65%. * Left ventricular systolic function is normal. * No segmental left ventricular wall motion abnormalities are noted. * The left ventricular wall motion is normal. Right Ventricle * The right ventricular cavity size is normal (basal dimension <4.2 cm in right ventricular apical 4-chamber view). * The right ventricular systolic function is normal as assessed by tricuspid annular plane systolic excursion (TAPSE) (normal >1.5 cm). Atria * The left atrial size is normal. * Right atrial size is normal. * No ASD detected; PFO is not assessed. Mitral Valve * The mitral valve is normal in structure and function. Tricuspid Valve * The tricuspid valve is normal in structure and function. Aortic Valve * The aortic valve is not well visualized. * No hemodynamically significant valvular aortic stenosis. * There is no significant aortic regurgitation. Pulmonic Valve * The pulmonary valve is not well seen, but the Doppler examination is normal without significant regurgitation or stenosis. Great Vessels * The aortic root is not well visualized. Pericardium/Pleural * There is no pericardial effusion. Left Ventricular Diastolic Function * Grade I diastolic dysfunction, (abnormal relaxation pattern). MMode 2D Measurements and Calculations IVSd 0.83 cm IVSs 1.1 cm LVIDd 4.5 cm LVIDs 3.0 cm LVPWd 0.70 cm LVPWs 1.1 cm IVS/LVPW 1.2 FS 34.0 % EDV(Teich) 91.1 ml ESV(Teich) 33.7 ml EF(Teich) 63.0 % EDV(cubed) 89.4 ml ESV(cubed) 25.7 ml EF(cubed) 71.2 % % IVS thick 29.7 % % LVPW thick 58.4 % LV mass(C)d 105.5 grams LV mass(C)dI 75.2 grams/m\S\2 LV mass(C)s 91.5 grams LV mass(C)sI 65.2 grams/m\S\2 SV(Teich) 57.4 ml SI(Teich) 40.9 ml/m\S\2 SV(cubed) 63.7 ml SI(cubed) 45.3 ml/m\S\2 ACS 0.78 cm LA dimension 2.7 cm LVOT diam 2.2 cm LVOT area 3.7 cm\S\2 LVAd ap4 27.7 cm\S\2 LVLd ap4 7.5 cm EDV(MOD-sp4) 85.5 ml EDV(sp4-el) 87.0 ml LVAs ap4 14.6 cm\S\2 LVLs ap4 6.3 cm ESV(MOD-sp4) 27.8 ml ESV(sp4-el) 28.8 ml EF(MOD-sp4) 67.5 % EF(sp4-el) 66.9 % LVAd ap2 26.9 cm\S\2 LVLd ap2 8.4 cm EDV(MOD-sp2) 71.7 ml EDV(sp2-el) 73.0 ml LVAs ap2 14.0 cm\S\2 LVLs ap2 6.3 cm ESV(MOD-sp2) 26.2 ml ESV(sp2-el) 26.7 ml EF(MOD-sp2) 63.5 % EF(sp2-el) 63.4 % LVLd %diff 11.2 % EDV(MOD-bp) 83.1 ml LVLs %diff -0.40 % ESV(MOD-bp) 27.0 ml EF(MOD-bp) 67.5 % SV(MOD-sp4) 57.7 ml SI(MOD-sp4) 41.1 ml/m\S\2 SV(MOD-sp2) 45.5 ml SI(MOD-sp2) 32.4 ml/m\S\2 SV(MOD-bp) 56.1 ml SI(MOD-bp) 40.0 ml/m\S\2 SV(sp4-el) 58.2 ml SI(sp4-el) 41.5 ml/m\S\2 SV(sp2-el) 46.3 ml SI(sp2-el) 32.9 ml/m\S\2 Doppler Measurements and Calculations MV E max anshu 62.0 cm/sec MV A max anshu 96.5 cm/sec MV E/A 0.64 MV dec time 0.20 sec Ao V2 max 186.0 cm/sec Ao max PG 13.8 mmHg Ao max PG (full) 9.2 mmHg ROXANN(V,A) 2.1 cm\S\2 ROXANN(V,D) 2.1 cm\S\2 LV V1 max PG 4.7 mmHg LV V1 mean PG 1.9 mmHg LV V1 max 108.1 cm/sec LV V1 mean 63.6 cm/sec LV V1 VTI 20.8 cm SV(LVOT) 76.1 ml SI(LVOT) 54.2 ml/m\S\2 PA V2 max 108.4 cm/sec PA max PG 4.7 mmHg
[2016-05-16] MEDS: OXYCODONE HCL IR 5 MG TAB (IMMEDIATE RELEASE) PO PRN ×2 (15:52→22:12)
[2016-05-16] MEDS ORDERED: METOPROLOL SUCC 50MG EXT REL TAB PO ONE (16:18)
[2016-05-16] MEDS ORDERED: NURSING VERBAL MED ORDER ONE (16:30)
--- NOTE | 2016-05-16 16:54 | CARDIOLOGY CONSULTATION ---
DATE OF CONSULTATION: 05/16/2016 INPATIENT CARDIOLOGY CONSULTATION CONSULTATION REQUESTED BY: Dr. Draper. REASON FOR CONSULTATION: SVT. HISTORY OF PRESENT ILLNESS: Mrs. Alvarez is a very pleasant 81-year-old woman who normally follows with Paul Cagle of our cardiology practice. She presented to [facility] on 05/15/2016 when she accompanied her who is experiencing urosepsis. She was found to have a change in mental status and was admitted to telemetry for further evaluation. Upon admission to telemetry, she also found to be in SVT, which was thought to be secondary to dehydration. She was rehydrated with IV fluids and given a banana bag for possible history of alcohol abuse, along with IV Lopressor and her arrhythmia broke to sinus rhythm. She states that during that she is completely asymptomatic. She did not feel chest pain, shortness of breath, palpitations, lightheadedness, dizziness or syncope. Her daughter is at the bedside with her now and agrees that her mother starting to look at her and getting back to her normal self. The patient states that she has not had a drink since before [place]. PAST SURGICAL HISTORY: 1. Cardiac catheterization in 2008. 2. Mastectomy. 3. Lumbar laminectomy. 4. Tonsillectomy. 5. Lumbar stimulator implantation. MEDICAL ILLNESSES: 1. History of nonischemic cardiomyopathy, EF as low as 20-25%, resolved. 2. Abdominal aortic aneurysm. 3. Severe COPD. 4. Chronic hypoxemia, on supplemental O2. 5. Chronic tobacco abuse. 6. Fibromyalgia. 7. GERD. 8. Alcohol abuse. FAMILY HISTORY: Remarkable for mother suffered a myocardial infarction at age 56. Father in his 80s. SOCIAL HISTORY: The patient is a lifelong smoker and continues to smoke. She has a history of alcohol abuse. She lives at home with her . REVIEW OF SYSTEMS: As per HPI, all other review of systems reviewed and negative at this time. ALLERGIES: 1. LISINOPRIL. 2. LATEX. MEDICATIONS AN OUTPATIENT: 1. Toprol-XL 50 mg daily. 2. Losartan 25 mg daily. 3. Spiriva daily. 4. Breo daily. 5. Supplemental oxygen. 6. Simvastatin 20 mg daily. PHYSICAL EXAMINATION: VITALS: Temperature 37.1, pulse 97, respiratory rate 12, blood pressure 163/91. GENERAL: Awake, alert, oriented x3, in no acute distress. HEENT: Normocephalic, atraumatic. Pupils equal, round, and reactive to light and accommodation. Extraocular muscles intact. Anicteric sclerae. Moist mucous membranes. NECK: No JVD, no bruit. CARDIOVASCULAR: Regular but fast. Unable to appreciate any murmurs or rubs. PULMONARY: Clear to auscultation bilaterally. No rales, rhonchi, or wheezing. ABDOMEN: Bowel sounds x4, soft. No rebound, guarding, tenderness. No organomegaly. EXTREMITIES: No clubbing, cyanosis or edema. +2 pedal pulses bilaterally. SKIN: Warm and dry. TEST RESULTS: Review of telemetry monitoring shows sustained SVT with no recurrence since last p.m. A 2D echocardiogram was read as normal LV chamber size and wall thickness, normal LV systolic function, EF 60-65%, no segmental left ventricle wall motion abnormalities were noted, grade 1 diastolic dysfunction, no significant valvular pathology. IMPRESSION: 1. Sustained supraventricular tachycardia in the setting of volume depletion and questionable alcohol withdrawal. 2. Change in mental status improved. 3. 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 4. History of nonischemic cardiomyopathy, resolved. RECOMMENDATIONS: It was my pleasure to see Mrs. Alvarez in consultation today. From a cardiac standpoint, she is doing well and I believe the most prudent course of action at this point would be to restart her metoprolol. This would help prevent any recurrences of her SVT and given the fact she has been on it for quite some time, I do believe it would be the most prudent choice. Her blood pressure is slightly on the low side at this point; however, I believe that once her heart rates are better controlled, her blood pressure will increase. Otherwise, should her blood pressure starts to drop a little bit this evening, I would push IV fluids for volume expansion. Thank you very much for allowing me to participate in the care of your patient.
[2016-05-16] MEDS: SIMVASTATIN 20 MG TAB PO SCH (20:34)
[2016-05-17] VITALS (9 sets, daily range): BP systolic 118–161; BP diastolic 61–96; PULSE 62–87; TEMP 36.5–36.8; O2SAT 96–100
[2016-05-17] MEDS ORDERED: LORAZEPAM 2 MG/ML 1 ML VIAL IV PRN (02:00)
[2016-05-17] MEDS ORDERED: LORAZEPAM INJ 1 MG in SYRINGE 0.5 ML IV PRN (02:00)
[2016-05-17] MEDS: NICOTINE 14 MG/24 HR TDSY TD SCH ×2 (02:19→09:38)
[2016-05-17 03:59] LABS: URINE APPEARANCE CLEAR (CLEAR); URINE BILIRUBIN NEG (NEG); URINE COLOR DK YELLOW; URINE EPITHELIAL CELL AUTO >30 /lpf (0-5); URINE NITRITE NEG (NEG); URINE PH 5.5 (4.5-7.5); UROBILINOGEN NEG (NEG); ZZUR CULT IF INDIC CLEAN CATCH NO
[2016-05-17 04:00] LABS: MANUAL MICROSCOPIC REQUIRED? NO; REVIEW REQ? NO
[2016-05-17] MEDS: NSS + 20MEQ KCL 1000ML 1,000 ML IV SCH ×4 (05:10→23:12)
[2016-05-17 07:14] LABS: BASO % 0.3 %; BASO ABS # 0.02 K/uL (0-0.2); COMPLETE YES; EOS % 3.4 %; HEMATOCRIT 30.8 % (37-47); IG% 0.4 %; LYMPH % 17.1 %; LYMPH ABS # 1.32 K/uL (1.2-3.4); MEAN CELL VOLUME 93.9 fL (80-100); MEAN CORPUSCULAR HEMOGLOBIN 29.6 pg (25-34); MEAN CORPUSCULAR HGB CONC 31.5 g/dl (32-36); MEAN PLATELET VOLUME 10.6 fL (7.4-10.4); MONO % 18.2 %; NEUT % 60.6 %; PLATELET COUNT 199 K/uL (130-400); RED BLOOD COUNT 3.28 M/uL (4.2-5.4); WHITE BLOOD COUNT 7.73 K/uL (4.8-10.8)
[2016-05-17 07:37] LABS: BUN/CREATININE RATIO 12.7 (10-20); CALCIUM 7.7 mg/dl (8.5-10.1); CREATININE 0.7 mg/dl (0.60-1.20); POTASSIUM 4.1 mmol/L (3.5-5.1)
--- NOTE | 2016-05-17 07:38 | Clinical Documentation Query ---
Dr. ALARCON, ROSENDA : CLINICAL DOCUMENTATION QUERY Patient is a 81 year old female admitted for SVT. ED provider documentation includes note of 2L of oxygen utilization at home. Notable PMH includes COPD as she is a current every day smoker. Please clarify as clinically appropriate as this directly affects DRG assignment. Thank you. In your clinical opinion is this patient being managed for: (X) Chronic hypoxemic respiratory failure ( ) Other explanation of clinical findings (Please Explain) ( ) Unable to determine (Please Define) ( ) Need to Discuss ( ) Not Agree The medical record reflects the following clinical findings, treatment, and risk factors. Clinical Indicators: As above Treatment: Oxygen supplementation. Risk Factors: COPD secondary to smoking Please clarify and document your clinical opinion in the progress notes and discharge summary. Terms such as "probable", "suspected", "likely", "questionable", "possible", or "still to be ruled out" are acceptable. IF IN AGREEMENT, YOU MUST DOCUMENT ABOVE DIAGNOSTIC STATEMENT IN DAILY PROGRESS NOTES AND DISCHARGE SUMMARY. This document is not part of the patient's record. Thank You, Grupo Gonzalez, EDDIE [phone]
[2016-05-17] MEDS: BUDESONIDE 0.5 MG/2 ML VIAL (PULMICORT) INH SCH ×2 (07:40→19:51)
--- NOTE | 2016-05-17 07:40 | Clinical Documentation Query ---
PATRICIA Tovar : CLINICAL DOCUMENTATION QUERY Patient is a 81 year old female admitted for SVT. ED provider documentation includes note of 2L of oxygen utilization at home. Notable PMH includes COPD as she is a current every day smoker. Please clarify as clinically appropriate as this directly affects DRG assignment. Thank you. In your clinical opinion is this patient being managed for: ( ) Chronic hypoxemic respiratory failure ( ) Other explanation of clinical findings (Please Explain) (X ) Unable to determine (Please Define) Change in mental status ( ) Need to Discuss ( ) Not Agree The medical record reflects the following clinical findings, treatment, and risk factors. Clinical Indicators: As above Treatment: Oxygen supplementation. Risk Factors: COPD secondary to smoking Please clarify and document your clinical opinion in the progress notes and discharge summary. Terms such as "probable", "suspected", "likely", "questionable", "possible", or "still to be ruled out" are acceptable. IF IN AGREEMENT, YOU MUST DOCUMENT ABOVE DIAGNOSTIC STATEMENT IN DAILY PROGRESS NOTES AND DISCHARGE SUMMARY. This document is not part of the patient's record. Thank You, Grupo Gonzalez, RN [phone]
[2016-05-17] MEDS: PANTOprazole SOD 40 MG TAB PO SCH (09:36)
[2016-05-17] MEDS: THIAMINE HCL 50 MG TAB PO SCH (09:36)
[2016-05-17] MEDS: LOSARTAN POTASSIUM 25 MG TAB PO SCH (09:36)
[2016-05-17] MEDS: DULOXETINE HCL 60 MG CAP PO SCH (09:36)
[2016-05-17] MEDS: MONTELUKAST SOD 10 MG TAB PO SCH (09:36)
[2016-05-17] MEDS: METOPROLOL SUCC 50MG EXT REL TAB PO SCH (09:37)
[2016-05-17] MEDS: FLUTICASONE PROPIONATE NA SPR 16 GM BTL NAE SCH ×2 (09:37→21:00)
[2016-05-17] MEDS: ENOXAPARIN 30 MG/0.3 ML SYR SQ SCH (09:38)
[2016-05-17] MEDS: MULTI-VITAMIN INFUSION INJ 10 ML, THIAMINE HCL INJ 100 MG, FoLIC ACID INJ 1 MG in SODIU... IV SCH (09:41)
--- NOTE | 2016-05-17 11:25 | Cardiology Follow-Up ---
Subjective Subjective Date of Service: May 17, 2016. Pt evaluation today including: conversation w/ patient, physical exam, chart review, lab review, review of studies, review of inpatient medication list Additional Details: Pt seen and examined, more lethargic and confused today. Denies cp, sob, palpitations, lightheadedness or dizziness. Tele reviewed: sinus rhythm without arrhythmia or recurrence of SVT. Problem List Medical Problems: (1) AAA (abdominal aortic aneurysm) Status: Acute (2) AAA (abdominal aortic aneurysm) Status: Acute (3) Atrial fibrillation with RVR Status: Acute (4) Back pain Status: Acute (5) Low back pain Status: Acute (6) Sacroiliitis Status: Acute (7) Weakness Status: Acute Review of Systems Constitutional: No chills, No fever, No sweats, No weight loss Respiratory: No cough, No shortness of breath, No sputum, No wheezing Cardiac: No chest pain, No edema, No orthopnea Musculoskeletal: + problem reported (back pain, chronic) Psychiatric: No depression symptoms Objective Vital Signs Last Vital Signs Documentation Date Time Temp Pulse Resp B/P Pulse Ox O2 Delivery O2 Flow Rate FiO2 05/17/16 11:12 36.7 87 18 127/75 96 Nasal Cannula 2.0 Physical Exam: General Appearance: no apparent distress, + cachetic, + thin Eyes: bilateral eyes EOMI, bilateral eyes PERRL, bilateral eyes normal inspection ENT: normal ENT inspection, hearing grossly normal, pharynx normal Neck: supple, no adenopathy, thyroid normal, no JVD, no carotid bruits, trachea midline Respiratory/Chest: chest non-tender, lungs clear, normal breath sounds, no respiratory distress, no accessory muscle use, + pertinent finding Cardiovascular: regular rate, rhythm, no edema, no JVD, no murmur, + gallop/S4 Abdomen: normal bowel sounds, non tender, soft, no organomegaly Extremities: non-tender, normal inspection, no pedal edema, no calf tenderness Neurologic/Psychiatric: alert, + depressed affect Skin: normal color, warm/dry, no rash Lymphatic: no adenopathy Assessment and Plan 1. paroxysmal SVT likely secondary to metabolic derangement metoprolol restarted no further recurrence cont metoprolol 2. Hx of NICM resolved cont metoprolol ok to d/c tele from cardiac standpoint
--- NOTE | 2016-05-17 12:00 | Family Medicine Progress Note ---
Progress Note Date of Service May 17, 2016. Subjective Pt evaluation today including: conversation w/ patient, physical exam, chart review, lab review The patient was seen and examined at bedside. Pt received 1mg Ativan overnight for agitation. Pt is on one to one observation. Patient is resting comfortably in bed. Pt is complaining of her chronic back pain back pain. Eating well. Pt has tangential conversation. Constitutional: No chills, No fever Respiratory: No cough, No shortness of breath, No sputum, No wheezing Cardiovascular: No chest pain Musculoskeletal: No joint pain Neurologic: No memory loss, No numbness/tingling, No weakness Psychiatric: No depression symptoms Objective Physical Exam General Appearance: WD/WN, no apparent distress Respiratory/Chest: chest non-tender, + wheezing (slight wheezing on exam anteriorly) Cardiovascular: no gallop, no JVD, no murmur, + tachycardia Abdomen: normal bowel sounds, non tender, soft, no organomegaly Extremities: normal range of motion, non-tender, normal inspection, no pedal edema Neurologic/Psychiatric: retail marketing specialist II-XII nml as tested Assessment and Plan 81F with a PMHx of alcohol abuse and chronic back pain brought in to the ER by her daughter for AMS, suspicious of acute opiate intoxication or rebound from intoxication. Urine tox screen was negative. EKG revealed SVT and pt was admitted to telemetry. Pt remained tachycardic on telemetry. Cardiology was consulted and recommended restarting the beta andrew. Pt was also restarted on Cipro for positive UA and confusion. 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 Pt's baseline include dementia. Discharge planning eval. If mental status worsens consider Psych consult. Sinus tachycardia (previously SVT) - Pt denies chest pain at present, tele showed sinus tachycardia in the 100s, dipping into the 60s overnight. - Echocardiogram: Normal LV chamber size and wall thickness. Normal LV systolic function,EF 60-65%. No segmental left ventricular wall motion abnormalities are noted. Grade I diastolic dysfunction. No significant valvular pathology. - Will continue to observe, cardiology input recommend beta andrew. - restarted Metoprolol 50mg QAM. - Pt is stable enough to admit to a general medical floor. Chronic Hypoxemic Respiratory Failure - Pt is on 2LNC, no respiratory complaints at this time. - c/w Singular 10mg daily - c/w Prednisone 10mg. Increased Urinary Frequency - UA was positive for LE. - start patient in Ciprofloxacin 250mg BID x 3 days. Chronic Back Pain - chronic issue, no new changes. - c/w Oxycodone 5mg PO Q6H PRN. 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 - Urine tox was negative, negative ethyl alcohol level. - c/w thiamine 50mg, c/w banana bag 150mls/hr, c/w Vitamin B12 - c/w nicotine patch. - Pt was placed on 1-1 observation due to animated character and tendency to get out of bed on her own. - Consider Psych eval if behavioral changes persist or worsen. Depression -c/w duloxetine 60 mg by mouth daily. Hypercholesterolemia - c/w simvastatin 20 mg by mouth every afternoon. HTN - c/w Losartan 25mg PO daily. GERD - c/w pantoprazole 40 mg by mouth daily. Allergic rhinitis - c/w Flonase nasal spray 1 spray each nostril twice a day Dispo - c/w OT and PT - Discharge planning eval - unlikely to be able to go back home or take care of herself. - Full Code. - DVT Proph: Lovenox 30mg QAM. Resident Physician Supervision Note: I was present with the resident physician during the history and exam. I discussed the case with the resident and agree with the findings and plan as documented in the note. Any exceptions or clarifications are listed here: [None ] She is clearly delirious today, more so than I have seen her in the past. For example, she thought the pens in the resident physician's coat were basketball players and that she was in a parade. While the patient has had some evidence of a Korsakoff Syndrome, she has done well on recent MMSE administered in the office. No obvious source of infection, although will re-culture urine. Started antibiotic empirically. Hold benzodiazepines; consider addition of low dose atypical antipsychotic, although would discuss with family first. Documented By: Emigdio Draper Resident Involvement: Resident Care Provided Care Provided: Adult Hospital Medicine
[2016-05-17] MEDS: CIPROFLOXACIN 250 MG TAB PO SCH ×2 (14:39→23:31)
[2016-05-17] MEDS: SIMVASTATIN 20 MG TAB PO SCH (21:00)
[2016-05-18 00:53] VITALS: BP 168/103; PULSE 78; TEMP 37; O2SAT 94
[2016-05-18] MEDS: OXYCODONE HCL IR 5 MG TAB (IMMEDIATE RELEASE) PO PRN ×3 (01:30→18:17)
[2016-05-18] MEDS: BUDESONIDE 0.5 MG/2 ML VIAL (PULMICORT) INH SCH ×2 (07:23→19:07)
[2016-05-18 07:46] VITALS: BP 154/79; PULSE 79; TEMP 36.4; O2SAT 100
[2016-05-18 08:02] LABS: BASO % 0.5 %; BASO ABS # 0.04 K/uL (0-0.2); COMPLETE YES; EOS % 3.1 %; HEMATOCRIT 31.8 % (37-47); IG% 0.3 %; LYMPH % 19.9 %; LYMPH ABS # 1.52 K/uL (1.2-3.4); MEAN CELL VOLUME 93.3 fL (80-100); MEAN CORPUSCULAR HEMOGLOBIN 29.3 pg (25-34); MEAN CORPUSCULAR HGB CONC 31.4 g/dl (32-36); MEAN PLATELET VOLUME 10.1 fL (7.4-10.4); MONO % 15.3 %; NEUT % 60.9 %; PLATELET COUNT 233 K/uL (130-400); RED BLOOD COUNT 3.41 M/uL (4.2-5.4); WHITE BLOOD COUNT 7.64 K/uL (4.8-10.8)
[2016-05-18 08:31] LABS: BUN/CREATININE RATIO 13.9 (10-20); CALCIUM 8.4 mg/dl (8.5-10.1); CREATININE 0.61 mg/dl (0.60-1.20); POTASSIUM 3.9 mmol/L (3.5-5.1)
[2016-05-18] MEDS: MULTI-VITAMIN INFUSION INJ 10 ML, THIAMINE HCL INJ 100 MG, FoLIC ACID INJ 1 MG in SODIU... IV SCH (08:50)
[2016-05-18] MEDS: NSS + 20MEQ KCL 1000ML 1,000 ML IV SCH ×3 (08:50→20:48)
[2016-05-18] MEDS: NICOTINE 14 MG/24 HR TDSY TD SCH (08:52)
[2016-05-18] MEDS: PANTOprazole SOD 40 MG TAB PO SCH (08:53)
[2016-05-18] MEDS: THIAMINE HCL 50 MG TAB PO SCH (08:53)
[2016-05-18] MEDS: FLUTICASONE PROPIONATE NA SPR 16 GM BTL NAE SCH ×2 (08:53→20:49)
[2016-05-18] MEDS: METOPROLOL SUCC 50MG EXT REL TAB PO SCH (08:54)
[2016-05-18] MEDS: LOSARTAN POTASSIUM 25 MG TAB PO SCH (08:54)
[2016-05-18] MEDS: MONTELUKAST SOD 10 MG TAB PO SCH (08:54)
[2016-05-18] MEDS: ENOXAPARIN 30 MG/0.3 ML SYR SQ SCH (08:55)
--- NOTE | 2016-05-18 09:43 | Family Medicine Progress Note ---
Progress Note Date of Service May 18, 2016. Subjective Pt evaluation today including: conversation w/ patient, physical exam, chart review, lab review The patient was seen and examined at bedside. Pt received 5mg of Oxycodone overnight. Patient is resting comfortably in bed. Denies having any pain. Pt is reporting increased urinary frequency. Conversation eventually becomes confused as patient start making confused statements. Plan of care was described to the patient and all questions were answered. Constitutional: No chills, No fever Respiratory: No cough Cardiovascular: No chest pain Neurologic: No numbness/tingling, No weakness Objective Physical Exam General Appearance: WD/WN, no apparent distress Respiratory/Chest: chest non-tender, lungs clear, normal breath sounds, no respiratory distress, no accessory muscle use Cardiovascular: regular rate, rhythm, no edema, no gallop, no JVD, no murmur Extremities: non-tender, normal inspection Neurologic/Psychiatric: alert, normal mood/affect, + pertinent finding ( Patient is AOOx3 but will begin to comfabulate after long periods of conversation. ) Assessment and Plan 81F with a PMHx of alcohol abuse and chronic back pain brought in to the ER by her daughter for AMS, suspicious of acute opiate intoxication or rebound from intoxication. Urine tox screen was negative. EKG revealed SVT and pt was admitted to telemetry. Pt remained tachycardic on telemetry. Cardiology was consulted and recommended restarting the beta andrew. Pt was also restarted on Cipro for positive UA and confusion. 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 Thiamine supplementation was increased. Pt's baseline include dementia. Discharge planning eval, will need placement. Confusion 2/2 Korsakoff Syndrome may be exacerbated by UTI - Pt continues to have has confabulated speech. - On admission Urine tox was negative, negative ethyl alcohol level. - Extra dose of 100mg thiamine today, banana bag dose was increased to 250mg total x 3 days + 50mg thiamine PO daiily. Increase Thiamine.c/w Vitamin B12 - c/w nicotine patch. Increased Urinary Frequency - UA yesterday was positive for LE. - c/w Ciprofloxacin 250mg BID x 3 days. (Day #2) Chronic Hypoxemic Respiratory Failure - Pt is on 2LNC, no respiratory complaints at this time. - c/w Singular 10mg daily - c/w Prednisone 10mg Chronic Back Pain - chronic issue, no new changes. - c/w Oxycodone 5mg PO Q6H PRN. Sinus tachycardia (resolved) - Pt denies chest pain at present, tele showed sinus tachycardia in the 100s, dipping into the 60s overnight. - Echocardiogram was grossly normal. - c/w Metoprolol 50mg QAM. Depression -c/w duloxetine 60 mg by mouth daily. Hypercholesterolemia - c/w simvastatin 20 mg by mouth every afternoon. HTN - c/w Losartan 25mg PO daily. GERD - c/w pantoprazole 40 mg by mouth daily. Allergic rhinitis - c/w Flonase nasal spray 1 spray each nostril twice a day Dispo - c/w OT and PT - Discharge planning eval - unlikely to be able to go back home or take care of herself. - Full Code. - DVT Proph: Lovenox 30mg QAM. Resident Physician Supervision Note: I was present with the resident during the history and exam. I discussed the case with the resident and agree with the findings and plan as documented in the note. Any exceptions or clarifications are listed here: The patient was oriented and less confused than yesterday, but still with confabulated events intermingled with actual events. Continue current care and will discuss placement options with social media job titles. Documented By: Emigdio Draper Resident Involvement: Resident Care Provided Care Provided: Adult Hospital Medicine
[2016-05-18] MEDS: DULOXETINE HCL 60 MG CAP PO SCH (10:26)
[2016-05-18] MEDS: CIPROFLOXACIN 250 MG TAB PO SCH ×2 (12:26→23:35)
[2016-05-18] MEDS ORDERED: THIAMINE HCL INJ 100 MG in SYRINGE 9 ML IV ONE (14:00)
[2016-05-18 15:36] VITALS: BP 125/73; PULSE 79; TEMP 36.7; O2SAT 98
[2016-05-18 19:07] VITALS: PULSE 82; O2SAT 97
[2016-05-18] MEDS: SIMVASTATIN 20 MG TAB PO SCH (20:48)
[2016-05-19] VITALS (7 sets, daily range): BP systolic 126–155; BP diastolic 72–79; PULSE 64–82; TEMP 36.4–36.8; O2SAT 93–98
[2016-05-19] MEDS: NSS + 20MEQ KCL 1000ML 1,000 ML IV SCH ×3 (03:43→17:46)
[2016-05-19] MEDS: [UNRECOGNIZED DRUG - OTHER] IV SCH (07:40)
[2016-05-19] MEDS: LOSARTAN POTASSIUM 25 MG TAB PO SCH (07:40)
[2016-05-19] MEDS: THIAMINE HCL IV SCH (07:40)
[2016-05-19] MEDS: PANTOprazole SOD 40 MG TAB PO SCH (07:40)
[2016-05-19] MEDS: MULTI VITAMIN INFUSION IV SCH (07:40)
[2016-05-19] MEDS: FOLIC ACID IV SCH (07:40)
[2016-05-19] MEDS: THIAMINE HCL 50 MG TAB PO SCH (07:40)
[2016-05-19] MEDS: OXYCODONE HCL IR 5 MG TAB (IMMEDIATE RELEASE) PO PRN ×2 (07:40→20:40)
[2016-05-19] MEDS: DULOXETINE HCL 60 MG CAP PO SCH (07:41)
[2016-05-19] MEDS: NICOTINE 14 MG/24 HR TDSY TD SCH (07:41)
[2016-05-19] MEDS: METOPROLOL SUCC 50MG EXT REL TAB PO SCH (07:41)
[2016-05-19] MEDS: ENOXAPARIN 30 MG/0.3 ML SYR SQ SCH (07:41)
[2016-05-19] MEDS: MONTELUKAST SOD 10 MG TAB PO SCH (07:41)
[2016-05-19] MEDS: FLUTICASONE PROPIONATE NA SPR 16 GM BTL NAE SCH ×2 (07:42→20:39)
[2016-05-19] MEDS: BUDESONIDE 0.5 MG/2 ML VIAL (PULMICORT) INH SCH ×2 (08:10→19:37)
[2016-05-19 10:22] LABS: HEMATOCRIT 33.5 % (37-47); MEAN CELL VOLUME 94.9 fL (80-100); MEAN CORPUSCULAR HEMOGLOBIN 29.5 pg (25-34); MEAN PLATELET VOLUME 10.4 fL (7.4-10.4); PLATELET COUNT 303 K/uL (130-400); RED BLOOD COUNT 3.53 M/uL (4.2-5.4); WHITE BLOOD COUNT 8.16 K/uL (4.8-10.8)
[2016-05-19 10:49] LABS: BUN/CREATININE RATIO 15.2 (10-20); CALCIUM 8.7 mg/dl (8.5-10.1); CREATININE 0.79 mg/dl (0.60-1.20); POTASSIUM 3.7 mmol/L (3.5-5.1)
[2016-05-19] MEDS ORDERED: CPR250 PO (11:10)
--- NOTE | 2016-05-19 11:12 | Discharge Instructions ---
Discharge Instructions Admission Reason for Admission: SVT Discharge Discharge Diagnosis / Problem: 1. SVT 2. Chronic hypoxemic respiratory failure 3. UTI 4. AMS 2/2 Korsakoff Discharge Goals Goal(s): Decrease discomfort, Improve function, Increase independence Activity Recommendations Activity Limitations: resume your previous activity . Instructions / Follow-Up Instructions / Follow-Up Follow up with your primary care provider within the next week. Current Hospital Diet Patient's current hospital diet: AHA Diet (Heart Healthy) Discharge Diet Recommended Diet: Regular Diet Pending Studies Studies pending at discharge: no Medical Emergencies . Who to Call and When: Medical Emergencies: If at any time you feel your situation is an emergency, please call 911 immediately. . Non-Emergent Contact Non-Emergency issues call your: Primary Care Provider . . "Provider Documentation" section prepared by Paul De La Vega. VTE Core Measure Inpt VTE Proph given/why not?: Enoxaparin (Lovenox)SQ, SCD's
--- NOTE | 2016-05-19 11:19 | Discharge Summary ---
Discharge Summary Admission Date: May 15, 2016 at 16:03 Discharge Date: May 19, 2016 Principal Diagnosis: 1. SVT 2. Chronic hypoxemic respiratory failure 3. UTI 4. Korsakoffs Immunizations: Have You Had Influenza Vaccine: N/A History of Tetanus Vaccine?: Yes Tetanus Immunization Date: May 14, 2005 History of Pneumococcal: Yes Pneumococcal Date: May 14, 2005 History of Hepatitis B Vaccine: No (Paul De La Vega M.D.) Medication Reconciliation New Medications: Ciprofloxacin (Ciprofloxacin HCl) 250 Mg Tab 250 MG PO Q12H for 5 Days, #10 TAB Continued Medications: Albuterol (Proair Hfa) Aers 2 PUFFS Q4 PRN for SOB/Wheezing Albuterol Soln (Proventil 0.083% 2.5MG/3ML) Nebu 2.5 MG INH Q4 PRN for SOB/Wheezing, EA Arformoterol Tartrate (Brovana 15MCG/2ML Soln) Nebu 1 DOSE BID Budesonide Soln (Pulmicort Respules 0.5MG/2ML) Nebu 1 VIAL NEB BID for 30 Days, #60 VIAL 3 Refills Budesonide/Formoterol Fumarate (Symbicort 160/4.5 Inhaler ) Aero 2 PUFFS INH BID, INHALER Duloxetine HCl (Duloxetine HCl) 60 Mg Cap 60 MG PO DAILY Fluticasone Propionate (Nasal) (Flonase Allergy Relief) 50 Mcg/Act Spr 1 SPRAY LUCIA BID Ipratropium [place] (Atrovent 0.02% Soln) 2.5 Ml Nebu 1 VIAL NEB Q4 PRN for SOB/Wheezing Losartan Potassium (Losartan Potassium) 25 Mg Tab 25 MG PO DAILY Metoprolol Succ (Toprol Xl) (Toprol-Xl) 50 Mg Tabcr 50 MG PO DAILY for 30 Days, #30 TAB 5 Refills Montelukast Sodium (Singulair) 10 Mg Tab 10 MG PO DAILY, TAB Oxycodone Immediate Rel Tab (Roxicodone Ir) 5 Mg Tab 1-2 TAB PO Q4H PRN for Severe Pain, #24 TAB Oxygen (Oxygen) Gas 2 LITERS NA HS Pantoprazole (Pantoprazole Sodium) 40 Mg Tab 40 MG PO UD take 40 mg twice daily for 1 month then take 40 mg daily Prednisone Tab (Prednisone) 10 Mg Tab 10 MG PO DAILY, TAB Simvastatin (Simvastatin) 20 Mg Tab 20 MG PO QPM Tiotropium [place] (Spiriva Handihaler) 30 Puff/540 Mcg Aerp 2 CAP INH DAILY, INHALER Discharge Exam The patient was seen and examined at bedside. No acute overnight events. Nurse reports that the pt thought she was at home earlier in the day. In conversation w patient she states that yesterday evening she went home and saw her . Her (another pt admitted in hospital) did however come down to visit her from another floor. Patient is resting comfortably in bed. Denies having any pain. Eating and urinating well. Plan of care was described to the patient and all questions were answered. Review of Systems: Constitutional: No chills, No fever Respiratory: No cough, No shortness of breath, No sputum Cardiovascular: No chest pain Abdomen: No nausea, No pain, No vomiting Musculoskeletal: No joint pain, No muscle pain Psychiatric: No depression symptoms Physical Exam: General Appearance: WD/WN, no apparent distress Eyes: normal inspection Neck: supple Respiratory/Chest: chest non-tender, lungs clear, normal breath sounds Cardiovascular: regular rate, rhythm, no edema, no gallop, no JVD, no murmur Abdomen / GI: non tender, soft Extremities: normal inspection, no calf tenderness Neurologic/Psychiatric: alert, normal mood/affect, normal reflexes, oriented x 3, + pertinent finding (Patient has moderate comfabulation with extended conversations. ) (Paul De La Vega M.D.) Hospital Course 81F with a PMHx of alcohol abuse and chronic back pain brought in to the ER by her daughter for AMS, suspicious of acute opiate intoxication or rebound from intoxication. Urine tox screen was negative. EKG revealed SVT and pt was admitted to telemetry. Pt remained tachycardic on telemetry. Cardiology was consulted and recommended restarting the beta andrew. Metoprolol 50mg XL was added and tachycardia resolved. Pt was also restarted on Cipro for positive UA and confusion. 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 Thiamine supplementation was increased. Pt's baseline includes confabulation after extended conversation. Patient will be discharged on Cipro 250mg BID x 3 days. Confusion 2/2 Korsakoff Syndrome may be exacerbated by UTI - Pt continues to have has confabulated speech. - On admission Urine tox was negative, undetectable ethyl alcohol level. - c/w Thiamine.c/w Vitamin B12, c/w nicotine patch. Increased Urinary Frequency - c/w Ciprofloxacin 250mg BID x 5 days. Chronic Hypoxemic Respiratory Failure - Pt is on 2LNC, no respiratory complaints at this time. - c/w Singular 10mg daily - c/w Prednisone 10mg Chronic Back Pain - chronic issue, no new changes. - c/w Oxycodone 5mg PO Q6H PRN. Sinus tachycardia (resolved) - c/w Metoprolol 50mg QAM. Depression -c/w duloxetine 60 mg by mouth daily. Hypercholesterolemia - c/w simvastatin 20 mg by mouth every afternoon. HTN - c/w Losartan 25mg PO daily. GERD - c/w pantoprazole 40 mg by mouth daily. Allergic rhinitis - c/w Flonase nasal spray 1 spray each nostril twice a day Dispo- Full Code. Total Time Spent: Greater than 30 minutes This includes examination of the patient, discharge planning, medication reconciliation, and communication with other providers. (Paul De La Vega M.D.) Resident Physician Supervision Note: I was present with the resident during the history and exam. I discussed the case with the resident and agree with the findings and plan as documented in the note. Any exceptions or clarifications are listed here: [None] Upon my visit with the patient today she seems more alert when compared to the previous 2 days. There is some mild confusion/confabulation (or confusion with regards to timing of events that anything else); this is similar to her episodes in the past but again her overall sensorium is improved compared to previous exams this admission. It is unsafe for her to return home due to her mental status change and overall weakness. While we had anticipated discharge today, unfortunately a bed is not available at her side. I'm told that a bed would be available tomorrow hopefully. The patient was lysed as such. Again, in my opinion, it would not be safe to discharge her to home due to the reasons noted above. Documented By: Emigdio Draper (Emigdio Draper,D.O.) Discharge Instructions Please refer to the electronic Patient Visit Report (Discharge Instructions) for additional information. (Paul De La Vega M.D.) Follow-Up Follow up with PCP in one week, (Paul De La Vega M.D.) Resident Involvement: Resident Care Provided Care Provided: Adult [facility] (Paul De La Vega M.D.)
[2016-05-19] MEDS: CIPROFLOXACIN 250 MG TAB PO SCH (12:45)
--- NOTE | 2016-05-19 13:50 | Family Medicine Progress Note ---
Progress Note Date of Service May 19, 2016. Subjective Pt evaluation today including: conversation w/ patient, physical exam, chart review, lab review The patient was seen and examined at bedside. No acute overnight events. Nurse reports that the pt thought she was at home earlier in the day. In conversation w patient she states that yesterday evening she went home and saw her . Her (another pt admitted in hospital) did however come down to visit her from another floor. Patient is resting comfortably in bed. Denies having any pain. Eating and urinating well. Plan of care was described to the patient and all questions were answered. Review of Systems: Constitutional: No chills, No fever Respiratory: No cough, No shortness of breath, No sputum Cardiovascular: No chest pain Abdomen: No nausea, No pain, No vomiting Musculoskeletal: No joint pain, No muscle pain Psychiatric: No depression symptoms Objective Physical Exam Notes: Physical Exam: General Appearance: WD/WN, no apparent distress Eyes: normal inspection Neck: supple Respiratory/Chest: chest non-tender, lungs clear, normal breath sounds Cardiovascular: regular rate, rhythm, no edema, no gallop, no JVD, no murmur Abdomen / GI: non tender, soft Extremities: normal inspection, no calf tenderness Neurologic/Psychiatric: alert, normal mood/affect, normal reflexes, oriented x 3, + pertinent finding (Patient has moderate comfabulation with extended conversations. ) Assessment and Plan 81F with a PMHx of alcohol abuse and chronic back pain brought in to the ER by her daughter for AMS, suspicious of acute opiate intoxication or rebound from chronic substance abuse. Urine tox screen was negative. EKG revealed SVT and pt was admitted to telemetry. Pt remained tachycardic on telemetry. Cardiology was consulted and recommended restarting the beta andrew. Metoprolol 50mg XL was added and tachycardia resolved. Pt was also restarted on Cipro for positive UA and confusion. 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 Thiamine supplementation was increased. Pt's baseline includes confabulation after extended conversation. Plan to be discharged on Cipro 250mg BID x 5 days. Confusion 2/2 Korsakoff Syndrome may be exacerbated by UTI - Pt continues to have has confabulated speech. - On admission Urine tox was negative, undetectable ethyl alcohol level. - c/w Thiamine.c/w Vitamin B12, c/w nicotine patch and supplement with Banana Bag. - Continue to monitor. Increased Urinary Frequency - Pt is clinically improving. - c/w Ciprofloxacin 250mg BID x 5 days. Chronic Hypoxemic Respiratory Failure - Pt is on 2LNC, no respiratory complaints at this time. - c/w Singular 10mg daily - c/w Prednisone 10mg Chronic Back Pain - chronic issue, no new changes. - c/w Oxycodone 5mg PO Q6H PRN. Sinus tachycardia (resolved) - c/w Metoprolol 50mg QAM. Depression -c/w duloxetine 60 mg by mouth daily. Hypercholesterolemia - c/w simvastatin 20 mg by mouth every afternoon. HTN - c/w Losartan 25mg PO daily. GERD - c/w pantoprazole 40 mg by mouth daily. Allergic rhinitis - c/w Flonase nasal spray 1 spray each nostril twice a day Dispo- Full Code. Resident Physician Supervision Note: I was present with the resident during the history and exam. I discussed the case with the resident and agree with the findings and plan as documented in the note. Any exceptions or clarifications are listed here: Please see my complete attestation at [facility] the discharge summary the same date. Documented By: Emigdio Draper Resident Involvement: Resident Care Provided Care Provided: Adult Hospital Medicine
[2016-05-19] MEDS: SIMVASTATIN 20 MG TAB PO SCH (20:39)
[2016-05-20] MEDS: NSS + 20MEQ KCL 1000ML 1,000 ML IV SCH ×4 (00:29→20:35)
[2016-05-20] MEDS: CIPROFLOXACIN 250 MG TAB PO SCH (00:29)
[2016-05-20 07:02] VITALS: BP 164/76; PULSE 72; TEMP 36.8; O2SAT 96
[2016-05-20 07:16] LABS: HEMATOCRIT 30.2 % (37-47); MEAN CELL VOLUME 93.8 fL (80-100); MEAN CORPUSCULAR HEMOGLOBIN 29.8 pg (25-34); MEAN CORPUSCULAR HGB CONC 31.8 g/dl (32-36); MEAN PLATELET VOLUME 10.3 fL (7.4-10.4); PLATELET COUNT 285 K/uL (130-400); RED BLOOD COUNT 3.22 M/uL (4.2-5.4); WHITE BLOOD COUNT 7.27 K/uL (4.8-10.8)
[2016-05-20 07:38] VITALS: PULSE 78; O2SAT 98
[2016-05-20] MEDS: BUDESONIDE 0.5 MG/2 ML VIAL (PULMICORT) INH SCH (07:38)
[2016-05-20 07:45] LABS: BUN/CREATININE RATIO 15.9 (10-20); CALCIUM 8.4 mg/dl (8.5-10.1); CREATININE 0.69 mg/dl (0.60-1.20); POTASSIUM 3.9 mmol/L (3.5-5.1)
[2016-05-20] MEDS: FOLIC ACID IV SCH (08:17)
[2016-05-20] MEDS: MULTI VITAMIN INFUSION IV SCH (08:17)
[2016-05-20] MEDS: [UNRECOGNIZED DRUG - OTHER] IV SCH (08:17)
[2016-05-20] MEDS: THIAMINE HCL IV SCH (08:17)
[2016-05-20] MEDS: OXYCODONE HCL IR 5 MG TAB (IMMEDIATE RELEASE) PO PRN ×2 (08:18→18:54)
[2016-05-20] MEDS: FLUTICASONE PROPIONATE NA SPR 16 GM BTL NAE SCH ×2 (08:18→20:36)
[2016-05-20] MEDS: LOSARTAN POTASSIUM 25 MG TAB PO SCH (08:19)
[2016-05-20] MEDS: PANTOprazole SOD 40 MG TAB PO SCH (08:19)
[2016-05-20] MEDS: DULOXETINE HCL 60 MG CAP PO SCH (08:19)
[2016-05-20] MEDS: THIAMINE HCL 50 MG TAB PO SCH (08:19)
[2016-05-20] MEDS: NICOTINE 14 MG/24 HR TDSY TD SCH (08:20)
[2016-05-20] MEDS: METOPROLOL SUCC 50MG EXT REL TAB PO SCH (08:20)
[2016-05-20] MEDS: ENOXAPARIN 30 MG/0.3 ML SYR SQ SCH (08:20)
[2016-05-20] MEDS: MONTELUKAST SOD 10 MG TAB PO SCH (08:20)
--- NOTE | 2016-05-20 11:15 | Family Medicine Progress Note ---
Progress Note Date of Service May 20, 2016. Subjective Pt evaluation today including: conversation w/ patient, physical exam, chart review, lab review, conversation w/ provider contracting consultant, review of inpatient medication list Pain: mild lower back pain(chronic) PO Intake: good Voiding: no voiding problems Patient is sitting in bed comfortably and is in no acute distress. No acute events overnight She is complaining of some lower back pain this morning but she has not received her oxycodone for the pain yet so we will give her this med and reevaluate the pain this afternoon. She is eating well and urinating regularly. She has not had a bowel movement in 3 days but she does not have any complaints with regards to abdominal pain. She is on day 08/16 with regards to her treatment for her UTI. Will continue to treat until D/C/ Plan is to go to [facility] on Sunday with . Constitutional: No chills, No fever, No sweats Respiratory: No cough, No shortness of breath, No sputum Cardiovascular: No chest pain, No edema, No palpitations Abdomen: + constipation, No diarrhea, No nausea, No pain, No vomiting Female : No dysuria, No incontinence, No urinary frequency Skin: No itch, No new/changing skin lesions, No rash Objective Physical Exam General Appearance: WD/WN, no apparent distress Neck: supple, no JVD, trachea midline Respiratory/Chest: chest non-tender, lungs clear, normal breath sounds Cardiovascular: regular rate, rhythm, no gallop, no murmur Abdomen: normal bowel sounds, non tender, soft Extremities: non-tender, no pedal edema, no calf tenderness Neurologic/Psychiatric: alert, normal mood/affect, + pertinent finding (can confabulate after having extended conversation) Laboratory Results Results Past 24 Hours Test 05/20/16 06:23 Range/Units White Blood Count 7.27 4.8-10.8 K/uL Red Blood Count 3.22 4.2-5.4 M/uL Hemoglobin 9.6 12.0-16.0 g/dL Hematocrit 30.2 37-47 % Mean Corpuscular Volume 93.8 80-100 fL Mean Corpuscular Hemoglobin 29.8 25-34 pg Mean Corpuscular Hemoglobin Concent 31.8 32-36 g/dl RDW Standard Deviation 43.5 36.4-46.3 fL RDW Coefficient of Variation 12.8 11.5-14.5 % Platelet Count 285 130-400 K/uL Mean Platelet Volume 10.3 7.4-10.4 fL Sodium Level 142 136-145 mmol/L Potassium Level 3.9 3.5-5.1 mmol/L Chloride Level 106 98-107 mmol/L Carbon Dioxide Level 31 21-32 mmol/L Anion Gap 5.0 3-11 mmol/L Blood Urea Nitrogen 11 7-18 mg/dl Creatinine 0.69 0.60-1.20 mg/dl Est Creatinine Clear Calc Drug Dose 59.5 ml/min Estimated GFR () 96.0 Estimated GFR (Non- 82.8 BUN/Creatinine Ratio 15.9 10-20 Random Glucose 86 70-99 mg/dl Calcium Level 8.4 8.5-10.1 mg/dl Assessment and Plan 81F with a PMHx of alcohol abuse and chronic back pain brought in to the ER by her daughter for AMS, EKG revealed SVT and pt was admitted to telemetry. Pt was restarted on Cipro for positive UA and confusion. UTI - asymptomatic - continue cipro bid for 5 days (currently day 4/5) Confusion/Korsakoff syndrome - urine tox neg, undetectable ethyl alcohol level - continue thiamine, b12, nicotine patch and banana bag Chronic Hypoxemic resp failure - on 2L via nasal cannula - ask nurse to stop oxygen and check o2 sats - singulair - prednisone (currently asymptomatic). Possible wean down this pm. Chronic lower back pain - Oxycodone 5mg Sinus tachycardia - resolved - metoprolol 50mg Depression - duloxetine Hypercholesterolemia - simvastatin HTN - losartan GERD - pantoprazole Allergic rhinitis - Flonase Dispo - full code Resident Physician Supervision Note: I was present with during the history and exam. I discussed the case with the resident and agree with the findings and plan as documented in the note. Any exceptions or clarifications are listed here: Upon my visit with the patient with Dr. Johnson, the patient seems to have improved mental status compared to previous. She is currently awaiting bed for rehabilitation; given her mental status (confusion) related to her Korsakoff syndrome, combined with her decreased agility and history of falls, I do not feel it is safe for her to return to her home at this point in time. Final decision will have to be made after she completes a reasonable duration of inpatient physical therapy but she may have reached the point where she is not able to return home safely. Documented By: Emigdio Draper Continued [facility] stay due to: home environment unsafe for pt, other
[2016-05-20 14:40] VITALS: BP 131/65; PULSE 70; TEMP 36.7; O2SAT 94
[2016-05-20] MEDS: SIMVASTATIN 20 MG TAB PO SCH (20:36)
[2016-05-20] MEDS: BUDESONIDE 90 MCG INH INH SCH (20:40)
[2016-05-21 00:05] VITALS: BP 176/83; PULSE 59; TEMP 36.7; O2SAT 98
[2016-05-21] MEDS: NSS + 20MEQ KCL 1000ML 1,000 ML IV SCH ×2 (02:16→08:02)
[2016-05-21 07:03] VITALS: BP 174/89; PULSE 75; TEMP 36.7; O2SAT 97
[2016-05-21 07:10] LABS: HEMATOCRIT 32.9 % (37-47); MEAN CELL VOLUME 93.5 fL (80-100); PLATELET COUNT 352 K/uL (130-400); RED BLOOD COUNT 3.52 M/uL (4.2-5.4); WHITE BLOOD COUNT 7.93 K/uL (4.8-10.8)
[2016-05-21 07:43] LABS: BUN/CREATININE RATIO 13.2 (10-20); CALCIUM 8.8 mg/dl (8.5-10.1); CREATININE 0.66 mg/dl (0.60-1.20); POTASSIUM 3.8 mmol/L (3.5-5.1)
[2016-05-21] MEDS: [UNRECOGNIZED DRUG - OTHER] IV SCH (08:00)
[2016-05-21] MEDS: MULTI VITAMIN INFUSION IV SCH (08:00)
[2016-05-21] MEDS: FOLIC ACID IV SCH (08:00)
[2016-05-21] MEDS: FLUTICASONE PROPIONATE NA SPR 16 GM BTL NAE SCH ×2 (08:00→20:32)
[2016-05-21] MEDS: THIAMINE HCL IV SCH (08:00)
[2016-05-21] MEDS: MONTELUKAST SOD 10 MG TAB PO SCH (08:00)
[2016-05-21] MEDS: LOSARTAN POTASSIUM 25 MG TAB PO SCH (08:00)
[2016-05-21] MEDS: BUDESONIDE 90 MCG INH INH SCH ×2 (08:00→20:32)
[2016-05-21] MEDS: THIAMINE HCL 50 MG TAB PO SCH (08:01)
[2016-05-21] MEDS: METOPROLOL SUCC 50MG EXT REL TAB PO SCH (08:01)
[2016-05-21] MEDS: PANTOprazole SOD 40 MG TAB PO SCH (08:01)
[2016-05-21] MEDS: DULOXETINE HCL 60 MG CAP PO SCH (08:01)
[2016-05-21] MEDS: NICOTINE 14 MG/24 HR TDSY TD SCH (08:01)
[2016-05-21] MEDS: ENOXAPARIN 30 MG/0.3 ML SYR SQ SCH (08:02)
[2016-05-21] MEDS: OXYCODONE HCL IR 5 MG TAB (IMMEDIATE RELEASE) PO PRN ×2 (08:07→15:37)
--- NOTE | 2016-05-21 12:08 | Family Medicine Progress Note ---
Progress Note Date of Service May 21, 2016. Subjective Pt evaluation today including: conversation w/ patient, physical exam, chart review, lab review, review of inpatient medication list Pain: lower back pain PO Intake: minimal to adequate Voiding: no voiding problems, no incontinence Patient lying comfortably in bed and in no acute distress. No acute events overnight. Still awaiting placement at [facility]. Is not eating very much as she says she doesn't like some of the food. She is peeing regularly and her last bowel movement was two days ago. Her blood pressure has been elevated throughout her hospital stay. Will d/c the iv fluids and see if it normalizes. Otherwise we can contemplate starting her on an oral medication before discharge. Constitutional: No chills, No fever, No sweats Respiratory: No cough, No shortness of breath, No sputum Cardiovascular: No chest pain, No claudication, No edema Abdomen: No diarrhea, No nausea, No pain, No vomiting Musculoskeletal: + problem reported (lower back pain (chronic)) Objective Physical Exam General Appearance: WD/WN, no apparent distress Respiratory/Chest: chest non-tender, lungs clear, normal breath sounds Cardiovascular: regular rate, rhythm, no edema, no murmur Abdomen: normal bowel sounds, non tender, soft Extremities: non-tender, normal inspection, no pedal edema, no calf tenderness Neurologic/Psychiatric: alert, normal mood/affect, oriented x 3 Assessment and Plan 81F with a PMHx of alcohol abuse and chronic back pain brought in to the ER by her daughter for AMS, EKG revealed SVT and pt was admitted to telemetry. Pt was restarted on Cipro for positive UA and confusion. UTI - asymptomatic - continue cipro bid for 5 days (currently day 5/5) - can d/c on day of discharge - D/C IV fluids Confusion/Korsakoff syndrome - urine tox neg, undetectable ethyl alcohol level - continue thiamine, b12, nicotine patch and banana bag Chronic Hypoxemic resp failure - singulair - prednisone (currently asymptomatic). Possible wean down this pm. Chronic lower back pain - Oxycodone 5mg Sinus tachycardia - resolved - metoprolol 50mg Depression - duloxetine Hypercholesterolemia - simvastatin HTN - losartan GERD - pantoprazole Allergic rhinitis - Flonase Dispo - full code - [facility] Sunday for rehab Resident Physician Supervision Note: I was present with Dr. Johnson during the history and exam. I discussed the case with the resident and agree with the findings and plan as documented in the note. Any exceptions or clarifications are listed here: At the time of my visit, the patient's mentation was clear. It has gradually improved during her hospitalization suggesting that the urinary tract infection may have been in part the reason for her acute on chronic mental status changes. She is awaiting placement at [facility]. Documented By: Emigdio Draper
[2016-05-21 14:42] VITALS: BP 128/70; PULSE 86; TEMP 36.8; O2SAT 98
[2016-05-21] MEDS: SIMVASTATIN 20 MG TAB PO SCH (20:31)
[2016-05-22] MEDS: OXYCODONE HCL IR 5 MG TAB (IMMEDIATE RELEASE) PO PRN ×2 (00:53→08:05)
[2016-05-22 01:54] VITALS: BP 156/73; PULSE 66; TEMP 36.7; O2SAT 93
[2016-05-22 06:49] LABS: HEMATOCRIT 33.4 % (37-47); MEAN CELL VOLUME 94.1 fL (80-100); MEAN CORPUSCULAR HEMOGLOBIN 29.6 pg (25-34); MEAN CORPUSCULAR HGB CONC 31.4 g/dl (32-36); MEAN PLATELET VOLUME 9.5 fL (7.4-10.4); PLATELET COUNT 367 K/uL (130-400); RED BLOOD COUNT 3.55 M/uL (4.2-5.4); WHITE BLOOD COUNT 8.28 K/uL (4.8-10.8)
[2016-05-22 07:17] LABS: BUN/CREATININE RATIO 18.6 (10-20); CREATININE 0.72 mg/dl (0.60-1.20); POTASSIUM 3.7 mmol/L (3.5-5.1)
[2016-05-22 07:55] VITALS: BP 163/74; PULSE 68; TEMP 36.6; O2SAT 94
[2016-05-22] MEDS: [UNRECOGNIZED DRUG - OTHER] IV SCH (08:01)
[2016-05-22] MEDS: BUDESONIDE 90 MCG INH INH SCH (08:01)
[2016-05-22] MEDS: THIAMINE HCL IV SCH (08:01)
[2016-05-22] MEDS: FOLIC ACID IV SCH (08:01)
[2016-05-22] MEDS: MULTI VITAMIN INFUSION IV SCH (08:01)
[2016-05-22] MEDS: NICOTINE 14 MG/24 HR TDSY TD SCH (08:02)
[2016-05-22] MEDS: FLUTICASONE PROPIONATE NA SPR 16 GM BTL NAE SCH (08:02)
[2016-05-22] MEDS: LOSARTAN POTASSIUM 25 MG TAB PO SCH (08:03)
[2016-05-22] MEDS: DULOXETINE HCL 60 MG CAP PO SCH (08:03)
[2016-05-22] MEDS: PANTOprazole SOD 40 MG TAB PO SCH (08:04)
[2016-05-22] MEDS: MONTELUKAST SOD 10 MG TAB PO SCH (08:04)
[2016-05-22] MEDS: METOPROLOL SUCC 50MG EXT REL TAB PO SCH (08:04)
[2016-05-22] MEDS: THIAMINE HCL 50 MG TAB PO SCH (08:04)
[2016-05-22] MEDS: ENOXAPARIN 30 MG/0.3 ML SYR SQ SCH (08:04)
[2016-05-22 09:58] VITALS: BP 123/69
[2016-05-22 10:57] VITALS: O2SAT 90
--- NOTE | 2016-05-22 14:04 | Discharge Instructions ---
Discharge Instructions Admission Reason for Admission: Altered Mental Status, UTI Discharge Discharge Diagnosis / Problem: UTI Discharge Goals Goal(s): Decrease discomfort, Improve function, Increase independence, Improve disease control, Improve nutritional status, Learn about illness, Diagnostic testing, Therapeutic intervention, Screening, Prevent Disease Progression Activity Recommendations Activity Level: Assistance Required Therapies: Physical Therapy, Occupational Therapy Lifting Limitations: gradually increase as tolerated Exercise/Sports Limitations: as tolerated Shower/Bathe: no limitations . Additional Information Patient informed of condition: Yes Advance Directives: No DNR: No Level of Care: Skilled Communicable Disease: No Prognosis: Improving Instructions / Follow-Up Instructions / Follow-Up -Follow up with PCP following discharge from rehab hospital -Please take medication as prescribed Current Hospital Diet Patient's current hospital diet: AHA Diet (Heart Healthy) Discharge Diet Recommended Diet: AHA Diet (Heart Healthy) Pending Studies Studies pending at discharge: no Medical Emergencies . Who to Call and When: Medical Emergencies: If at any time you feel your situation is an emergency, please call 911 immediately. . Non-Emergent Contact Non-Emergency issues call your: Primary Care Provider Call Non-Emergent contact if: temperature is above 101, your pain is not controlled, your pain is worsening, your pain is unusual for you, your pain is concerning you, you have any medication questions . . "Provider Documentation" section prepared by Ilan Marie. Core Measure Problem Core Measures: None
[2016-05-22] MEDS ORDERED: CIPR1TAB11 PO (14:16)
[2016-05-22 14:37] VITALS: BP 123/69; PULSE 68; TEMP 36.6; O2SAT 94
--- NOTE | 2016-05-22 18:17 | Discharge Summary ---
Discharge Summary Admission Date: May 15, 2016 at 16:03 Discharge Date: May 22, 2016 Discharge Disposition: Rehab Principal Diagnosis: SVT, Chronic Hypoxemic Resp Failure, UTI, Korsakov syndrome Immunizations: Have You Had Influenza Vaccine: N/A History of Tetanus Vaccine?: Yes Tetanus Immunization Date: May 14, 2005 History of Pneumococcal: Yes Pneumococcal Date: May 14, 2005 History of Hepatitis B Vaccine: No Consultations: Cardiology (Ilan Marie MD) Medication Reconciliation New Medications: Ciprofloxacin Tab (Cipro) 250 Mg Tab 250 MG PO Q12 for 5 Days, #10 TAB Continued Medications: Albuterol (Proair Hfa) Aers 2 PUFFS Q4 PRN for SOB/Wheezing Albuterol Soln (Proventil 0.083% 2.5MG/3ML) Nebu 2.5 MG INH Q4 PRN for SOB/Wheezing, EA Arformoterol Tartrate (Brovana 15MCG/2ML Soln) Nebu 1 DOSE BID Budesonide Soln (Pulmicort Respules 0.5MG/2ML) Nebu 1 VIAL NEB BID for 30 Days, #60 VIAL 3 Refills Budesonide/Formoterol Fumarate (Symbicort 160/4.5 Inhaler ) Aero 2 PUFFS INH BID, INHALER Duloxetine HCl (Duloxetine HCl) 60 Mg Cap 60 MG PO DAILY Fluticasone Propionate (Nasal) (Flonase Allergy Relief) 50 Mcg/Act Spr 1 SPRAY LUCIA BID Ipratropium [place] (Atrovent 0.02% Soln) 2.5 Ml Nebu 1 VIAL NEB Q4 PRN for SOB/Wheezing Losartan Potassium (Losartan Potassium) 25 Mg Tab 25 MG PO DAILY Metoprolol Succ (Toprol Xl) (Toprol-Xl) 50 Mg Tabcr 50 MG PO DAILY for 30 Days, #30 TAB 5 Refills Montelukast Sodium (Singulair) 10 Mg Tab 10 MG PO DAILY, TAB Oxycodone Immediate Rel Tab (Roxicodone Ir) 5 Mg Tab 1-2 TAB PO Q4H PRN for Severe Pain, #24 TAB Oxygen (Oxygen) Gas 2 LITERS NA HS Pantoprazole (Pantoprazole Sodium) 40 Mg Tab 40 MG PO UD take 40 mg twice daily for 1 month then take 40 mg daily Prednisone Tab (Prednisone) 10 Mg Tab 10 MG PO DAILY, TAB Simvastatin (Simvastatin) 20 Mg Tab 20 MG PO QPM Tiotropium [place] (Spiriva Handihaler) 30 Puff/540 Mcg Aerp 2 CAP INH DAILY, INHALER Discharge Exam Pt had no complaints, no acute events overnight, resting comfortably in bed Review of Systems: Constitutional: No chills, No fever Respiratory: No cough, No shortness of breath Cardiovascular: No chest pain, No palpitations Abdomen: No nausea, No pain, No vomiting Musculoskeletal: No calf pain, No swelling Physical Exam: General Appearance: WD/WN, no apparent distress Eyes: normal inspection, PERRL, EOMI Neck: supple, trachea midline Respiratory/Chest: lungs clear, normal breath sounds Cardiovascular: regular rate, rhythm, no murmur Abdomen / GI: normal bowel sounds, non tender, soft Extremities: normal inspection, no calf tenderness, no pedal edema Neurologic/Psychiatric: alert, normal mood/affect, oriented x 3 Skin: normal color, warm/dry (Ilan Marie MD) Review of Systems: Constitutional: No fever Respiratory: No shortness of breath Cardiovascular: No chest pain Genitourinary - Female: No dysuria Physical Exam: General Appearance: no apparent distress Respiratory/Chest: lungs clear, no respiratory distress Cardiovascular: regular rate, rhythm Abdomen / GI: normal bowel sounds, non tender, soft Neurologic/Psychiatric: alert, oriented x 3 Skin: warm/dry (Jessica Slater M.D.) Hospital Course 81yo F with a PMHx of alcohol abuse and chronic back pain brought in to the ER by her daughter for AMS, suspicious of acute opiate intoxication or rebound from intoxication. Urine tox screen was negative. EKG revealed SVT and pt was admitted to telemetry. Pt remained tachycardic on telemetry. Cardiology was consulted and recommended restarting the beta andrew. Metoprolol 50mg XL was added and tachycardia resolved. Pt was also restarted on Cipro for positive UA and confusion. 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 Thiamine supplementation was increased. Pt's baseline includes confabulation after extended conversation. Mental status improved by discharge date 05/22/16. Patient discharged on Cipro 250mg BID x 5 days to rehab at [facility] Total Time Spent: Less than 30 minutes This includes examination of the patient, discharge planning, medication reconciliation, and communication with other providers. (Ilan Marie MD) I have reviewed the medical record and performed a history and physical examination of this patient today. I have discussed the case with Dr. Marie. The above note reflects my findings, conclusions, and recommendations. Total Time Spent: Greater than 30 minutes (35 min) (Jessica Slater M.D.) Discharge Instructions Please refer to the electronic Patient Visit Report (Discharge Instructions) for additional information. (Ilan Marie MD) Follow-Up PCP following D/C from Rehab (Ilan aMrie MD) Resident Tracking Resident Involvement: Resident Care Provided Care Provided: Adult Hospital Medicine (Ilan Marie MD)
[2017-01-02] MEDS ORDERED: OXGN (01:30)
[2017-01-02] MEDS ORDERED: PRED10TA PO (09:57)
[2017-01-02] MEDS ORDERED: SYMIN160 INH (14:03)
[2017-01-02] MEDS ORDERED: ALBINS/ INH (18:02)
[2017-01-02] MEDS ORDERED: BUDE0.5S NEB (18:19)
[2017-01-02] MEDS ORDERED: ARFO15NE INH (18:19)
[2017-01-02] MEDS ORDERED: ADVIN25/60 INH (18:19)
[2017-01-02] MEDS ORDERED: OXYC-57 PO (18:19)
[2017-01-02] MEDS ORDERED: IPRA0.06 INH (18:25)
[2017-01-02] MEDS ORDERED: ABL5 PO (18:25)
[2017-01-02] MEDS ORDERED: FLUT0.15 NAE (18:25)
[2017-01-02] MEDS ORDERED: SERT25TA PO (18:25)
[2017-01-03] MEDS ORDERED: ASPI81TA28 PO (15:10)
[2017-01-05] MEDS ORDERED: SPRIN/30 INH (01:36)
[2017-01-05] MEDS ORDERED: METO50TA7 PO (09:57)
[2017-01-27] MEDS ORDERED: FRRS300 PO (15:48)
[2017-01-27] MEDS ORDERED: VTMB12 PO (15:48)
[2017-01-27] MEDS ORDERED: ERTA1INJ IV (15:49)
[2017-01-28] MEDS ORDERED: IPRASOL4 INH (11:09)
== END 2016-05-22 15:14 | DRG 309 ==
LOC: ENRESERVDT → ENRESERVTM → EDBD 11:50 → C.EDA 11:51 → C.2T 16:03 → EDBEDREQ 05-16 12:37 → C.2T 05-16 13:29 → C.MS2W 05-17 11:54
PROVIDERS: ADMIT Hospitalist; ATTEND Family Medicine
DX: I47.1 Supraventricular tachycardia (principal); J96.11 Chronic respiratory failure with hypoxia; N39.0 Urinary tract infection, site not specified; I42.9 Cardiomyopathy, unspecified; F04 Amnestic disorder due to known physiological condition; E78.00 Pure hypercholesterolemia, unspecified; E86.0 Dehydration; F32.9 Major depressive disorder, single episode, unspecified; J44.9 Chronic obstructive pulmonary disease, unspecified; J30.9 Allergic rhinitis, unspecified; F10.10 Alcohol abuse, uncomplicated; K21.9 Gastro-esophageal reflux disease without esophagitis; I10 Essential (primary) hypertension; R35.0 Frequency of micturition; M54.5 Low back pain; I71.4 Abdominal aortic aneurysm, without rupture; F17.210 Nicotine dependence, cigarettes, uncomplicated; K40.90 Unilateral inguinal hernia, without obstruction or gangrene, not specified as recurrent; K42.9 Umbilical hernia without obstruction or gangrene; F03.90 Unspecified dementia, unspecified severity, without behavioral disturbance, psychotic disturbance, mood disturbance, and anxiety

== ENCOUNTER → 2016-07-13 | Outpatient (CLI) | payer OTHER, MEDICARE ==
[~2016-07-13] MED LIST changes: +ABL5 PO; +ADVIN25/60 INH; +ALBINS/ INH; +ALBU18002 INH; +ARFO15NE INH; +ARIP2TAB3 PO; +ASPI81TA28 PO; +BSP/10 PO; +CHOL100010 PO; +CHOL1CAP57 PO; +CITA10TA4 PO; +CLC100X PO; +CYM60 PO; +CZR25 PO; +DONE1TAB11 PO; +ERGO500037 PO; +ERTA1INJ IV; +FAMO20TA9 PO; +FLUT1INH; +FOLI1TAB7 PO; +FRRS300 PO; +IPRA0.06 INH; +IPRASOL4 INH; +METO50TA7 PO; +ONDA4TAB10 SL; +OXGN; +OXYC-57 PO; +PRED10TA PO; +PRT/20 PO; +PRT/40 PO; +SERT25TA PO; +SIMV-151 PO; +SPRIN/30 INH; +SYMIN160 INH; +VTMB12 PO
== END | disposition home or self-care (01) ==
LOC: C.PATHSPEC 13:44
PROVIDERS: ATTEND Dermatology
DX: L82.1 Other seborrheic keratosis (principal)

== ENCOUNTER → 2016-08-28 | Outpatient (CLI) | payer OTHER, MEDICARE ==
[~2016-08-28] MED LIST changes: +ARFO15NE NEB; +PANT40TA2 PO; -PRT/40 PO
--- NOTE | 2016-08-28 13:25 | DIAGNOSTIC IMAGING REPORT ---
CHEST 2 VIEWS ROUTINE HISTORY: Short of breath. F32.9 [id number] COMPARISON: Chest 05/15/2016. FINDINGS: Severe emphysema. No pneumothorax. Old, healed right-sided rib fractures. No new focal lung consolidations to suggest pneumonia. No evidence for pulmonary edema. The heart is normal in size. Spinal electrodes remain unchanged in position. Bibasilar interstitial thickening is consistent with vascular crowding from the emphysema. This remains unchanged. IMPRESSION: No significant change compared to the prior study. No acute process. Emphysema. Electronically signed by: Daniel Cummings M.D. 08/28/2016 1:23 PM Dictated Date/Time: 08/28/2016 1:22 PM
[2016-08-28 14:05] LABS: ARTERIAL BLD GAS O2 SATURATION 97.1 % (90-95); ARTERIAL BLOOD GAS BASE EXCESS 4.9 mEq/L (-9-1.8); ARTERIAL BLOOD GAS HCO3 30 mmol/L (19-24); ARTERIAL BLOOD GAS PO2 97 mm/Hg (80-95); ARTERIAL BLOOD GAS pH 7.44 (7.35-7.45)
[2016-08-28 14:08] LABS: ALLEN TEST POS (POS)
[2016-08-28 14:09] LABS: BASO % 0.1 %; BASO ABS # 0.01 K/uL (0-0.2); COMPLETE YES; EOS % 1.1 %; HEMATOCRIT 33.6 % (37-47); IG% 0.3 %; LYMPH ABS # 0.74 K/uL (1.2-3.4); MEAN CELL VOLUME 89.8 fL (80-100); MEAN CORPUSCULAR HGB CONC 30.1 g/dl (32-36); MEAN PLATELET VOLUME 9.1 fL (7.4-10.4); MONO % 7.4 %; NEUT % 85.1 %; PLATELET COUNT 418 K/uL (130-400); RED BLOOD COUNT 3.74 M/uL (4.2-5.4); WHITE BLOOD COUNT 12.26 K/uL (4.8-10.8)
[2016-08-28 14:18] LABS: O2 ADMINISTRATION 3 L
[2016-08-28 15:05] LABS: BLOOD UREA NITROGEN 21 mg/dl (7-18); BUN/CREATININE RATIO 20.7 (10-20); CALCIUM 8.4 mg/dl (8.5-10.1); CARBON DIOXIDE 27 mmol/L (21-32); CHLORIDE 106 mmol/L (98-107); GLUCOSE 125 mg/dl (70-99); SODIUM 143 mmol/L (136-145)
[2016-08-28 15:33] LABS: URINE APPEARANCE CLEAR (CLEAR); URINE COLOR DK YELLOW; URINE EPITHELIAL CELL AUTO >30 /lpf (0-5); URINE NITRITE NEG (NEG); URINE SPECIFIC GRAVITY 1.031 (1.000-1.030); UROBILINOGEN NEG (NEG); ZZUR CULT IF INDIC CLEAN CATCH NO
[2016-08-28 15:39] LABS: MANUAL MICROSCOPIC REQUIRED? NO; REVIEW REQ? NO; URINE BILIRUBIN NEG (NEG)
== END | disposition home or self-care (01) ==
LOC: C.RADBC 12:19
PROVIDERS: ATTEND Physician Assistant
DX: F32.9 Major depressive disorder, single episode, unspecified (principal); J43.9 Emphysema, unspecified

== ENCOUNTER → 2016-10-16 | Outpatient (CLI) | payer OTHER, MEDICARE ==
[2016-10-16 17:11] LABS: BASO % 0.3 %; BASO ABS # 0.03 K/uL (0-0.2); COMPLETE YES; EOS % 0.6 %; HEMATOCRIT 34.3 % (37-47); IG% 0.4 %; LYMPH % 6.5 %; LYMPH ABS # 0.76 K/uL (1.2-3.4); MEAN CELL VOLUME 88.9 fL (80-100); MEAN CORPUSCULAR HEMOGLOBIN 26.4 pg (25-34); MEAN CORPUSCULAR HGB CONC 29.7 g/dl (32-36); MEAN PLATELET VOLUME 9.8 fL (7.4-10.4); MONO % 3.6 %; NEUT % 88.6 %; PLATELET COUNT 309 K/uL (130-400); RED BLOOD COUNT 3.86 M/uL (4.2-5.4); WHITE BLOOD COUNT 11.71 K/uL (4.8-10.8)
== END | disposition home or self-care (01) ==
LOC: C.LAB 16:26
PROVIDERS: ATTEND Family Medicine
DX: R53.83 Other fatigue (principal); F03.90 Unspecified dementia, unspecified severity, without behavioral disturbance, psychotic disturbance, mood disturbance, and anxiety; R44.3 Hallucinations, unspecified

== ENCOUNTER → 2016-12-29 | Outpatient (CLI) | payer OTHER, MEDICARE ==
[~2016-12-29] MED LIST changes: -ARFO15NE NEB; -OXYC1TAB3 PO; -PANT40TA2 PO; +PRT/40 PO
--- NOTE | 2016-12-29 19:48 | DIAGNOSTIC IMAGING REPORT ---
CT SCAN OF THE LUMBAR SPINE WITHOUT IV CONTRAST CLINICAL HISTORY: Chronic low back pain. No injury. COMPARISON STUDY: CT scan of lumbar spine dated 05/09/2016. TECHNIQUE: CT scan of lumbar spine is performed from the lower thoracic spine to the sacrum. Images reviewed in the axial, sagittal, and coronal planes. IV contrast was not administered for this examination. A dose lowering technique was utilized adhering to the principles of ALARA. The examination is degraded by streak artifact from extensive metallic orthopedic hardware. CT DOSE: 808.34 mGy.cm FINDINGS: The skeletal structures are osteopenic. There is no evidence of acute fracture or malalignment. No lytic or blastic lesions are identified. [id number] chronic compression deformities of T12 and L1 are similar to previous. Vertebral body height is otherwise maintained throughout the lumbar spine. Alignment is preserved. There is mild to moderate lumbar levoscoliosis centered at L3. Anterior osteophytes are seen throughout. 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 The transverse processes are otherwise intact. There are extensive postoperative changes from laminectomy and posterior fusion seen from L2 through L5. There is evidence of interposition bone graft. Interpedicular screws are seen at all levels. The orthopedic hardware appears intact. There is lucency around the screws in the L5 vertebral body, right greater than left suggesting loosening. Intrathecal leads from a spinal stimulator device enter the central canal at the T12-L1 level. The visualized portions of the leads appear intact. There is evidence of previous discectomy at L4-L5. Advanced disc space narrowing is seen at L2-L3 and L3-L4. Moderate disc space narrowing is seen at the remaining lumbar levels. There is no evidence of large disc herniation. Facet arthropathy is seen in the lower lumbar region. The visualized sacrum and bony pelvis appear intact. Mild degenerative change and vacuum phenomenon is seen involving the sacroiliac joints. There is near-complete fatty atrophy of the paraspinous musculature. An infrarenal abdominal aneurysm is partially visualized and measures at least 5.3 cm in diameter. The partially imaged kidneys demonstrate cortical atrophy. IMPRESSION: 1. No acute bony abnormality is seen involving the lumbar spine. 2. Chronic compression deformities of T12 and L1 are similar to previous. 3. Extensive postoperative and degenerative change as above. 4. The orthopedic hardware appears intact. Lucency is suggested around the interpedicular screws in L5. This is nonspecific but suggests loosening. Clinical correlation will be required. 5. An infrarenal abdominal aortic aneurysm is partially visualized and measures at least 5.3 cm in diameter. Dictated: 12/29/2016 6:31 PM Transcribed: 12/29/2016 7:47 PM [email or web address] Electronically signed by: Manan Rodney M.D. 12/29/2016 7:49 PM Dictated Date/Time: 12/29/2016 6:31 PM
== END | disposition home or self-care (01) ==
LOC: C.CTS 18:18
PROVIDERS: ATTEND Family Medicine
DX: M54.5 Low back pain (principal); M48.00 Spinal stenosis, site unspecified; I71.4 Abdominal aortic aneurysm, without rupture; M47.816 Spondylosis without myelopathy or radiculopathy, lumbar region

== ENCOUNTER 2017-01-02 17:34 | Observation (INO) | payer OTHER, MEDICARE ==
[~2017-01-02] VITALS: Ht 170.2 cm; Wt 66.3 kg
[~2017-01-02 17:34] MED LIST changes: -ABL5 PO; -ADVIN25/60 INH; -ALBINS/ INH; -ALBU18002 INH; -ARFO15NE INH; -ARIP2TAB3 PO; -ASPI81TA28 PO; -BSP/10 PO; -CHOL100010 PO; -CHOL1CAP57 PO; -CITA10TA4 PO; -CLC100X PO; -CYM60 PO; -CZR25 PO; -DONE1TAB11 PO; -ERGO500037 PO; -ERTA1INJ IV; -FAMO20TA9 PO; -FLUT1INH; -FOLI1TAB7 PO; -FRRS300 PO; -IPRA0.06 INH; -IPRASOL4 INH; -METO50TA7 PO; -ONDA4TAB10 SL; -OXYC-57 PO; -PRT/20 PO; -PRT/40 PO; -SERT25TA PO; -SIMV-151 PO; -SPRIN/30 INH; -VTMB12 PO
[2017-01-02] MEDS ORDERED: ALBINS/ INH ×2 (18:02)
[2017-01-02] MEDS ORDERED: SODIUM CHLORIDE 0.9% 1000ML 1,000 ML IV SCH (18:09)
[2017-01-02 18:19] LABS: BASO % 0.3 %; BASO ABS # 0.02 K/uL (0-0.2); COMPLETE YES; EOS % 0.3 %; HEMATOCRIT 37.2 % (37-47); IG% 0.1 %; LYMPH % 14.9 %; LYMPH ABS # 1.05 K/uL (1.2-3.4); MEAN CELL VOLUME 87.9 fL (80-100); MEAN CORPUSCULAR HEMOGLOBIN 25.8 pg (25-34); MEAN CORPUSCULAR HGB CONC 29.3 g/dl (32-36); MEAN PLATELET VOLUME 9.7 fL (7.4-10.4); MONO % 7.4 %; PLATELET COUNT 388 K/uL (130-400); RED BLOOD COUNT 4.23 M/uL (4.2-5.4); WHITE BLOOD COUNT 7.07 K/uL (4.8-10.8)
[2017-01-02] MEDS ORDERED: ARFO15NE INH ×2 (18:19)
[2017-01-02] MEDS ORDERED: CHOL100010 PO (18:19)
[2017-01-02] MEDS ORDERED: ARIP2TAB3 PO (18:19)
[2017-01-02] MEDS ORDERED: OXYC-57 PO ×2 (18:19)
[2017-01-02] MEDS ORDERED: BUDE0.5S NEB ×2 (18:19)
[2017-01-02] MEDS ORDERED: FLUT1INH (18:19)
[2017-01-02] MEDS ORDERED: ADVIN25/60 INH ×2 (18:19)
[2017-01-02] MEDS ORDERED: FLUT0.15 NAE ×2 (18:25)
[2017-01-02] MEDS ORDERED: SERT25TA PO ×2 (18:25)
[2017-01-02] MEDS ORDERED: ABL5 PO ×2 (18:25)
[2017-01-02] MEDS ORDERED: IPRA0.06 INH ×2 (18:25)
[2017-01-02 18:27] LABS: PARTIAL THROMBOPLASTIN RATIO 0.9; PROTHROMBIN TIME (PATIENT) 10.3 SECONDS (9.0-12.0)
[2017-01-02] MEDS ORDERED: SODIUM CHLORIDE 0.9% 500ML 500 ML IV STA (18:37)
[2017-01-02] MEDS ORDERED: LORAZEPAM 2 MG/ML 1 ML VIAL IV STA (18:37)
--- NOTE | 2017-01-02 18:37 | DIAGNOSTIC IMAGING REPORT ---
CHEST ONE VIEW PORTABLE CLINICAL HISTORY: Stroke COMPARISON STUDY: Chest radiograph August 28, 2016. FINDINGS: No pneumothorax or pleural effusion is present. Linear lower lung opacities suggest atelectasis. There is no consolidation to suggest pneumonia. Severe emphysema is noted. A 2.2 cm nodular density projects over the posterior right eighth rib. This may be related to the rib. There are several old right rib fractures. Cardiomediastinal silhouette is normal. Intracanalicular electrodes are noted. IMPRESSION: 1. No acute cardiopulmonary findings. 2. 2.1 cm nodular density projecting over the right midlung. This could reflect a healing rib fracture. A pulmonary nodule or airspace disease could appear similar. Follow-up PA and shallow oblique radiographs of the chest are recommended. 3. Severe emphysema. Electronically signed by: Sacha Edward M.D. 01/02/2017 6:36 PM Dictated Date/Time: 01/02/2017 6:32 PM
[2017-01-02 18:44] LABS: ALT/SGPT 23 U/L (12-78); AST/SGOT 15 U/L (15-37); BLOOD UREA NITROGEN 14 mg/dl (7-18); BUN/CREATININE RATIO 14.4 (10-20); CARBON DIOXIDE 29 mmol/L (21-32); CHLORIDE 108 mmol/L (98-107); GLUCOSE 129 mg/dl (70-99); POTASSIUM 4.8 mmol/L (3.5-5.1); SODIUM 141 mmol/L (136-145)
[2017-01-02 18:49] LABS: ALB/GLOB RATIO 0.9 (0.9-2); ALKALINE PHOSPHATASE 72 U/L (45-117)
--- NOTE | 2017-01-02 18:54 | DIAGNOSTIC IMAGING REPORT ---
HEAD CT NONCONTRAST CT DOSE: 537.48 mGy.cm HISTORY: Stroke symptoms. TECHNIQUE: Multiaxial CT images of the head were performed without the use of intravenous contrast. Automated exposure control was utilized for this study. A dose lowering technique was utilized adhering to the principles of ALARA. Comparison: Head CT 05/15/2016. Findings: Tiny retention cyst within the left sphenoid sinus. The mastoid air cells are clear. The calvarium and skull base are intact. There is no mass, hematoma, midline shift, acute infarct. White matter hypodensity is nonspecific but suggestive of moderate microvascular ischemic change. The ventricles and sulci demonstrate mild age-related involutional changes. Impression: No significant change compared to the prior study. No acute intracranial abnormality. Electronically signed by: Daniel Cummings M.D. 01/02/2017 6:53 PM Dictated Date/Time: 01/02/2017 6:47 PM
--- NOTE | 2017-01-02 19:00 | EMERGENCY ROOM VISIT NOTE ---
History Report prepared by Kaitlin: Margie Gurrola Under the Supervision of: Dr. Alexsander Eastman M.D. First contact with patient: 18:07 Chief Complaint: STROKE SYMPTOMS Nursing Triage Summary: pt arrived to ER via ALS. per EMS noted patient to be more tired today. at 1600 noted her to have expressive aphasia and was becomming frustrated due to aphasia. when EMS arrived patient noted to have some expressive aphasia. when patient was transported to the ambulance syptoms resolved around 1710. patient denies pain or discomfort at this time equal push/pull/grasp. wound to left forearm. patient states her dog bite her a couple days ago History of Present Illness The patient is a 81 year old female who presents to the Emergency Room with complaints of an episode of stroke symptoms starting this evening. The patient states that she remembers she couldn't talk at all. She states that she could think of the words she wanted to say, but they wouldn't come out. The patient notes that currently her symptoms have resolved. The patient denies weakness, numbness, being on blood thinners, and ever having a stroke before. The patient states that she recently had a UTI and was on antibiotics. The daughter notes that she had a UTI a month ago. Source of History: patient Onset: this evening Position: other (global) Quality: other (global) Timing: other (episode) Associated Symptoms: No weakness, No numbness Note: The patient denies being on blood thinners and ever having a stroke before. Review of Systems See HPI for pertinent positives & negatives. A total of 10 systems reviewed and were otherwise negative. 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 (10) SVT (supraventricular tachycardia) Social History Problems: (1) Tobacco Use Disorder Family History No significant family history Social History Smoking Status: Former Smoker Alcohol Use: heavy Drug Use: none Marital Status: Housing Status: lives with significant other Occupation Status: unemployed Current/Historical Medications Scheduled Arformoterol Tartrate (Brovana), 15 MCG INH BID Aripiprazole (Abilify), 5 MG PO QAM Budesonide (Inhalation) (Pulmicort), 0.5 MG PO BID Budesonide/Formoterol Fumarate (Symbicort 160/4.5 Inhaler ), 2 PUFFS INH BID Buspirone HCl (Buspirone HCl), 10 MG PO DAILY Docusate Sodium (Docusate Sodium), 100 MG PO DAILY Duloxetine HCl (Duloxetine HCl), 60 MG PO DAILY Ergocalciferol (Vitamin D 86003 Unit), 50,000 UNIT PO WK Fluticasone Prop/Salmeterol (Advair Diskus 250/50 60 Dose), 1 PUFF INH BID Fluticasone Propionate (Nasal) (Flonase Allergy Relief), 1 SPRAY LUCIA BID Folic Acid (Folvite), 1 MG PO DAILY Home O2 Therapy (Oxygen), 2 LITERS NA HS Ipratropium Kent (Nasal) (Ipratropium Kent), 1 UNIT INH Q4 Losartan Potassium (Losartan Potassium), 25 MG PO DAILY Metoprolol Succ (Toprol Xl) (Toprol-Xl), 50 MG PO DAILY Pantoprazole (Protonix), 40 MG PO DAILY Prednisone Tab (Prednisone), 10 MG PO DAILY Sertraline (Zoloft), 25 MG PO DAILY Simvastatin (Simvastatin), 20 MG PO QPM Tiotropium Kent (Spiriva Handihaler), 2 CAP INH DAILY Scheduled PRN Albuterol Sulf (Proventil 0.083% 2.5MG/3ML), 2.5 MG INH QID PRN for SOB/Wheezing Albuterol Sulfate (Proair Respiclick), 2 PUFFS INH Q4 PRN for SOB/Wheezing Oxycodone/Acetaminophen 5MG/325MG (Percocet 5MG/325MG), 1 TABLET PO Q6H PRN for Pain Allergies Coded Allergies: Latex2 -Systemic Allergic Response (Verified Allergy, Unknown, HIVES, ITCHING SWELLING,, 01/02/17) Lisinopril (Verified Adverse Reaction, Mild, cough, 01/02/17) Physical Exam Vital Signs Date Time Temp Pulse Resp B/P (MAP) Pulse Ox O2 Delivery O2 Flow Rate FiO2 01/02/17 19:00 76 20 166/86 99 Nasal Cannula 2.0 01/02/17 17:47 96 Room Air 01/02/17 17:43 83 8/22/17 17:39 36.6 84 22 157/82 96 Room Air Physical Exam GENERAL: Patient is a healthy-appearing well-nourished HEAD: Normocephalic atraumatic EYES: Ocular movements intact pupils equal and react to light OROPHARYNX mucous membranes are moist no exudates present no erythema or edema present NECK: Supple no nuchal rigidity CHEST: Good equal expansion LUNGS: Clear and equal to auscultation CARDIAC: Normal S1 and S2 ABDOMEN: Soft nontender no guarding BACK: No CVA tenderness EXTREMITIES: No pain upon palpation normal muscle strength in all groups no clubbing cyanosis or edema NEURO: Patient is following commands and answering questions appropriately. Alert, slightly confused to date. Cranial Nerves 2-12 grossly intact Medical Decision & Procedures ER Provider Diagnostic Interpretation: Radiology results as stated below per my review and radiologist interpretation: CHEST ONE VIEW PORTABLE CLINICAL HISTORY: Stroke COMPARISON STUDY: Chest radiograph August 28, 2016. FINDINGS: No pneumothorax or pleural effusion is present. Linear lower lung opacities suggest atelectasis. There is no consolidation to suggest pneumonia. Severe emphysema is noted. A 2.2 cm nodular density projects over the posterior right eighth rib. This may be related to the rib. There are several old right rib fractures. Cardiomediastinal silhouette is normal. Intracanalicular electrodes are noted. IMPRESSION: 1. No acute cardiopulmonary findings. 2. 2.1 cm nodular density projecting over the right midlung. This could reflect a healing rib fracture. A pulmonary nodule or airspace disease could appear similar. Follow-up PA and shallow oblique radiographs of the chest are recommended. 3. Severe emphysema. Electronically signed by: Sacha Edward M.D. 01/02/2017 6:36 PM Dictated Date/Time: 01/02/2017 6:[address] CT DOSE: 537.48 mGy.cm HISTORY: Stroke symptoms. TECHNIQUE: Multiaxial CT images of the head were performed without the use of intravenous contrast. Automated exposure control was utilized for this study. A dose lowering technique was utilized adhering to the principles of ALARA. Comparison: Head CT 05/15/2016. Findings: Tiny retention cyst within the left sphenoid sinus. The mastoid air cells are clear. The calvarium and skull base are intact. There is no mass, hematoma, midline shift, acute infarct. White matter hypodensity is nonspecific but suggestive of moderate microvascular ischemic change. The ventricles and sulci demonstrate mild age-related involutional changes. Impression: No significant change compared to the prior study. No acute intracranial abnormality. Electronically signed by: Daniel Cummings M.D. 01/02/2017 6:53 PM Dictated Date/Time: 01/02/2017 6:47 PM Laboratory Results 01/02/17 17:50 Red Blood Count 4.23, Mean Corpuscular Volume 87.9, Mean Corpuscular Hemoglobin 25.8, Mean Corpuscular Hemoglobin Concent 29.3, Mean Platelet Volume 9.7, Neutrophils (%) (Auto) 77.0, Lymphocytes (%) (Auto) 14.9, Monocytes (%) (Auto) 7.4, Eosinophils (%) (Auto) 0.3, Basophils (%) (Auto) 0.3, Neutrophils # (Auto) 5.45, Lymphocytes # (Auto) 1.05, Monocytes # (Auto) 0.52, Eosinophils # (Auto) 0.02, Basophils # (Auto) 0.02 01/02/17 17:50 Test 01/02/17 17:50 White Blood Count 7.07 K/uL (4.8-10.8) Red Blood Count 4.23 M/uL (4.2-5.4) Hemoglobin 10.9 g/dL (12.0-16.0) Hematocrit 37.2 % (37-47) Mean Corpuscular Volume 87.9 fL (80-100) Mean Corpuscular Hemoglobin 25.8 pg (25-34) Mean Corpuscular Hemoglobin Concent 29.3 g/dl (32-36) Platelet Count 388 K/uL (130-400) Mean Platelet Volume 9.7 fL (7.4-10.4) Neutrophils (%) (Auto) 77.0 % Lymphocytes (%) (Auto) 14.9 % Monocytes (%) (Auto) 7.4 % Eosinophils (%) (Auto) 0.3 % Basophils (%) (Auto) 0.3 % Neutrophils # (Auto) 5.45 K/uL (1.4-6.5) Lymphocytes # (Auto) 1.05 K/uL (1.2-3.4) Monocytes # (Auto) 0.52 K/uL (0.11-0.59) Eosinophils # (Auto) 0.02 K/uL (0-0.5) Basophils # (Auto) 0.02 K/uL (0-0.2) RDW Standard Deviation 51.0 fL (36.4-46.3) RDW Coefficient of Variation 15.9 % (11.5-14.5) Immature Granulocyte % (Auto) 0.1 % Immature Granulocyte # (Auto) 0.01 K/uL (0.00-0.02) Prothrombin Time 10.3 SECONDS (9.0-12.0) Prothromb Time International Ratio 1.0 (0.9-1.1) Activated Partial Thromboplast Time 23.4 SECONDS (21.0-31.0) Partial Thromboplastin Ratio 0.9 Anion Gap 4.0 mmol/L (3-11) Est Creatinine Clear Calc Drug Dose 42.7 ml/min Estimated GFR () 62.1 Estimated GFR (Non- 53.5 BUN/Creatinine Ratio 14.4 (10-20) Calcium Level 9.0 mg/dl (8.5-10.1) Total Bilirubin 0.2 mg/dl (0.2-1) Aspartate Amino Transf (AST/SGOT) 15 U/L (15-37) Alanine Aminotransferase (ALT/SGPT) 23 U/L (12-78) Alkaline Phosphatase 72 U/L (45-117) Total Creatine Kinase 44 U/L (26-192) Creatine Kinase MB 0.9 ng/ml (0.5-3.6) Creatine Kinase MB Ratio 2.0 (0-3.0) Troponin I < 0.015 ng/ml (0-0.045) Total Protein 7.3 gm/dl (6.4-8.2) Albumin 3.4 gm/dl (3.4-5.0) Globulin 3.9 gm/dl (2.5-4.0) Albumin/Globulin Ratio 0.9 (0.9-2) Labs reviewed by ED physician. Medications Administered Medications (Trade) Dose Ordered Sig/Lupe Route Start Time Stop Time Status Last Admin Dose Admin Sodium Chloride 1,000 ml @ 50 mls/hr Q20H IV 01/02/17 18:09 02/01/17 18:08 01/02/17 18:53 50 MLS/HR Sodium Chloride 500 ml @ 999 mls/hr Q31M STAT IV 01/02/17 18:37 01/02/17 19:07 DC 01/02/17 18:53 999 MLS/HR Lorazepam 1 mg/ Syringe 1 ml @ 1 mls/min TODAY@1915 ONCE IV 01/02/17 19:15 01/02/17 19:16 DC 01/02/17 19:49 1 MLS/MIN ECG Indication: weakness Rate (beats per minute): 80 Rhythm: normal sinus Findings: no acute ischemic change, no ectopy ED Course 1808: Ordered NSS 1000 ml @ 50 mls/hr IV. 1830: Past medical records reviewed. The patient was evaluated in room C6. A complete history and physical examination was performed. 1836: Ordered NSS 500 ml @ 999 mls/hr IV. 1913: I reevaluated the patient and informed he of her test results. She agrees with the future treatment plan. 1914: Ordered Lorazepam 1 mg/ Syringe 1 ml mls/min IV. 1919: I discussed the patient's case with Dr. Colorado, he has agreed to evaluate the patient for further management and care. Medical Decision Differential diagnosis: Etiologies such as metabolic, infection, hypo/hyperglycemia, electrolyte abnormalities, cardiac sources, intracerebral event, toxicologic, neurologic, as well as others were entertained. This is a 81-year-old female who presents emergency department complaining of a period of aphasia. Upon arrival to emergency department the patient is asymptomatic however her blood pressure is elevated. I do believe she most likely suffered from a TIA. The patient was sent for CAT scan of the head which did not show any acute process. In addition she was sent for a chest x- ray. The patient has a normal CBC normal renal profile normal liver profile. I did discuss the case with the hospitalist who agreed to admit the patient. Patient family were in agreement with the treatment plan. The patient was given Ativan to calm her agitation in the emergency department. Medication Reconcilliation Current Medication List: was personally reviewed by me Blood Pressure Screening Patient's blood pressure: Elevated blood pressure Consults Time Called: 1916 Consulting Physician: Dr. Colorado Returned Call: 1919 I discussed the patient's case with Dr. Colorado, he has agreed to evaluate the patient for further management and care. Impression Primary Impression: TIA (transient ischemic attack) Additional Impression: Hypertension Nos Scribe Attestation The scribe's documentation has been prepared under my direction and personally reviewed by me in its entirety. I confirm that the note above accurately reflects all work, treatment, procedures, and medical decision making performed by me. Departure Information Dispostion Being Evaluated By Hospitalist Referrals Emigdio Draper D.O. (PCP) Patient Instructions My [facility] Problem Qualifiers Primary Impression: TIA (transient ischemic attack) Transient cerebral ischemia type: unspecified Qualified Codes: G45.9 - Transient cerebral ischemic attack, unspecified
[2017-01-02] MEDS ORDERED: LORAZEPAM INJ 1 MG in SYRINGE 0.5 ML IV ONE (19:15)
[2017-01-02] MEDS ORDERED: ALUMINUM/MAGNESIUM/SIMETH (MAALOX MAX) 30 ML UDC PO PRN (19:30)
[2017-01-02] MEDS ORDERED: ACETAMINOPHEN 325 MG TAB PO PRN (19:30)
[2017-01-02] MEDS ORDERED: ONDANSETRON INJ 2 MG/ML 2 ML VIAL IV PRN (19:30)
[2017-01-02] MEDS ORDERED: POLYETHYLENE (MIRALAX) 17 GM PACK PO PRN (19:30)
[2017-01-02] MEDS ORDERED: MAGNESIUM HYDROXIDE SUSP 30 ML UDC PO PRN (19:30)
--- NOTE | 2017-01-02 19:41 | History and Physical ---
History & Physical Date & Time of Service: Jan 02, 2017 at 19:30 Chief Complaint: Speech Issues Primary Care Physician: Emigdio Draper D.O. History of Present Illness Source: patient, family The patient is a 81-year-old lady with background history of hypertension hypercholesterolemia, COPD, and depression, who presents by EMS. She complains that this afternoon she had sudden onset of an inability to speak. Symptoms started suddenly at approximately 1630. She states that she was standing at the top of her stairs speaking to her . Her states that he noticed she suddenly started having difficulty describing what the dog was doing. He says his speech was "garbled" . She did have some comprehensible words interspersed with sound that did not make sense, we says that the fluency of her speech was intact. The patient felt like she was not getting the right word. She knew what words she wanted to say but couldn't get the right words out. She denies any other neurological symptoms: No double vision, changes in vision , hearing changes tinnitus, swallowing difficulty, comprehension difficulties, focal weakness or sensory changes. called EMS. As EMS arrived symptoms were resolving. After arriving in the ED (1 hour), symptoms were completely resolved. Patient does not that she was diagnosed with UTI by PCP 3 weeks ago and was treated with antibiotics. Symptoms have no resolved however. She notes continued urgency, but no dysuria. Appetite has been good. Normal intake. No constipation or diarrhea. No fevers, chills o sweats. Of note, she was recently started on Abilify and Sertraline for depression. She has a lower spinal cord stimulator for low back pain. Past Medical/Surgical History Medical Problems: (1) COPD (chronic obstructive pulmonary disease) Status: Chronic (2) History of heart disease Status: Chronic Hypertension History of CHF Depression Family History No significant family history Social History Smoking Status: Former Smoker Smokeless Tobacco Use: No Alcohol Use: none Drug Use: none Marital Status: Housing status: lives with family Occupational Status: unemployed Immunizations History of Influenza Vaccine: N/A History of Tetanus Vaccine?: Yes Tetanus Immunization Date: May 14, 2005 History of Pneumococcal: Yes Pneumococcal Date: May 14, 2005 History of Hepatitis B Vaccine: No Multi-Drug Resistant Organisms History of MDRO: No Allergies Coded Allergies: Latex2 -Systemic Allergic Response (Verified Allergy, Unknown, HIVES, ITCHING SWELLING,, 01/02/17) Lisinopril (Verified Adverse Reaction, Mild, cough, 01/02/17) Home Medications Scheduled Arformoterol Tartrate (Brovana), 15 MCG INH BID Aripiprazole (Abilify), 5 MG PO QAM Budesonide (Inhalation) (Pulmicort), 0.5 MG PO BID Budesonide/Formoterol Fumarate (Symbicort 160/4.5 Inhaler ), 2 PUFFS INH BID Buspirone HCl (Buspirone HCl), 10 MG PO DAILY Docusate Sodium (Docusate Sodium), 100 MG PO DAILY Duloxetine HCl (Duloxetine HCl), 60 MG PO DAILY Ergocalciferol (Vitamin D 19157 Unit), 50,000 UNIT PO WK Fluticasone Prop/Salmeterol (Advair Diskus 250/50 60 Dose), 1 PUFF INH BID Fluticasone Propionate (Nasal) (Flonase Allergy Relief), 1 SPRAY LUCIA BID Folic Acid (Folvite), 1 MG PO DAILY Home O2 Therapy (Oxygen), 2 LITERS NA HS Ipratropium Logan (Nasal) (Ipratropium Logan), 1 UNIT INH Q4 Losartan Potassium (Losartan Potassium), 25 MG PO DAILY Metoprolol Succ (Toprol Xl) (Toprol-Xl), 50 MG PO DAILY Pantoprazole (Protonix), 40 MG PO DAILY Prednisone Tab (Prednisone), 10 MG PO DAILY Sertraline (Zoloft), 25 MG PO DAILY Simvastatin (Simvastatin), 20 MG PO QPM Tiotropium Logan (Spiriva Handihaler), 2 CAP INH DAILY Scheduled PRN Albuterol Sulf (Proventil 0.083% 2.5MG/3ML), 2.5 MG INH QID PRN for SOB/Wheezing Albuterol Sulfate (Proair Respiclick), 2 PUFFS INH Q4 PRN for SOB/Wheezing Oxycodone/Acetaminophen 5MG/325MG (Percocet 5MG/325MG), 1 TABLET PO Q6H PRN for Pain Review of Systems A 10 point review of systems was negative unless stated above. Physical Exam Vital Signs Date Time Temp Pulse Resp B/P (MAP) Pulse Ox O2 Delivery O2 Flow Rate FiO2 01/02/17 19:00 76 20 166/86 99 Nasal Cannula 2.0 01/02/17 17:47 96 Room Air 01/02/17 17:43 83 01/02/17 17:39 36.6 84 22 157/82 96 Room Air General Appearance: WD/WN, no apparent distress Head: normocephalic, atraumatic Eyes: normal inspection, EOMI ENT: hearing grossly normal, pharynx normal Neck: supple, no adenopathy, no JVD Respiratory/Chest: lungs clear, no respiratory distress Cardiovascular: regular rate, rhythm, no gallop, no murmur Abdomen/GI: normal bowel sounds, non tender, soft Back: no CVA tenderness, no muscle spasm Extremities/Musculoskelatal: no calf tenderness, no pedal edema Neurologic/Psych: bander hand II-XII nml as tested, alert, normal mood/affect, oriented x 3 Skin: normal color, warm/dry, no rash Lymphatic: no adenopathy Diagnostics Laboratory Results Results Past 24 Hours Test 01/02/17 17:50 Range/Units White Blood Count 7.07 4.8-10.8 K/uL Red Blood Count 4.23 4.2-5.4 M/uL Hemoglobin 10.9 12.0-16.0 g/dL Hematocrit 37.2 37-47 % Mean Corpuscular Volume 87.9 80-100 fL Mean Corpuscular Hemoglobin 25.8 25-34 pg Mean Corpuscular Hemoglobin Concent 29.3 32-36 g/dl Platelet Count 388 130-400 K/uL Mean Platelet Volume 9.7 7.4-10.4 fL Neutrophils (%) (Auto) 77.0 % Lymphocytes (%) (Auto) 14.9 % Monocytes (%) (Auto) 7.4 % Eosinophils (%) (Auto) 0.3 % Basophils (%) (Auto) 0.3 % Neutrophils # (Auto) 5.45 1.4-6.5 K/uL Lymphocytes # (Auto) 1.05 1.2-3.4 K/uL Monocytes # (Auto) 0.52 0.11-0.59 K/uL Eosinophils # (Auto) 0.02 0-0.5 K/uL Basophils # (Auto) 0.02 0-0.2 K/uL RDW Standard Deviation 51.0 36.4-46.3 fL RDW Coefficient of Variation 15.9 11.5-14.5 % Immature Granulocyte % (Auto) 0.1 % Immature Granulocyte # (Auto) 0.01 0.00-0.02 K/uL Prothrombin Time 10.3 9.0-12.0 SECONDS Prothromb Time International Ratio 1.0 0.9-1.1 Activated Partial Thromboplast Time 23.4 21.0-31.0 SECONDS Partial Thromboplastin Ratio 0.9 Sodium Level 141 136-145 mmol/L Potassium Level 4.8 3.5-5.1 mmol/L Chloride Level 108 98-107 mmol/L Carbon Dioxide Level 29 21-32 mmol/L Anion Gap 4.0 3-11 mmol/L Blood Urea Nitrogen 14 7-18 mg/dl Creatinine 1.00 0.60-1.20 mg/dl Est Creatinine Clear Calc Drug Dose 42.7 ml/min Estimated GFR () 62.1 Estimated GFR (Non- 53.5 BUN/Creatinine Ratio 14.4 10-20 Random Glucose 129 70-99 mg/dl Calcium Level 9.0 8.5-10.1 mg/dl Total Bilirubin 0.2 0.2-1 mg/dl Aspartate Amino Transf (AST/SGOT) 15 15-37 U/L Alanine Aminotransferase (ALT/SGPT) 23 12-78 U/L Alkaline Phosphatase 72 45-117 U/L Total Creatine Kinase 44 26-192 U/L Creatine Kinase MB 0.9 0.5-3.6 ng/ml Creatine Kinase MB Ratio 2.0 0-3.0 Troponin I < 0.015 0-0.045 ng/ml Total Protein 7.3 6.4-8.2 gm/dl Albumin 3.4 3.4-5.0 gm/dl Globulin 3.9 2.5-4.0 gm/dl Albumin/Globulin Ratio 0.9 0.9-[address] NONCONTRAST CT DOSE: 537.48 mGy.cm HISTORY: Stroke symptoms. TECHNIQUE: Multiaxial CT images of the head were performed without the use of intravenous contrast. Automated exposure control was utilized for this study. A dose lowering technique was utilized adhering to the principles of ALARA. Comparison: Head CT 05/15/2016. Findings: Tiny retention cyst within the left sphenoid sinus. The mastoid air cells are clear. The calvarium and skull base are intact. There is no mass, hematoma, midline shift, acute infarct. White matter hypodensity is nonspecific but suggestive of moderate microvascular ischemic change. The ventricles and sulci demonstrate mild age-related involutional changes. Impression: No significant change compared to the prior study. No acute intracranial abnormality. Electronically signed by: Daniel Cummings M.D. 01/02/2017 6:53 PM Dictated Date/Time: 01/02/2017 6:47 PM EKG Normal sinus rhythm Normal ECG When compared with ECG of 17-MAY-2016 06:23, Premature atrial complexes are no longer Present Impression Assessment and Plan 81-year-old female with expressive aphasia. Given duration of symptoms seems consistent with transient ischemic attack. CT scan of the ED has been negative. She will require admission for further workup of stroke symptoms. Unfortunately she doesn't spinal simulator in place, and this precludes adequate MRI imaging. Plan for her is as follows Expressive aphasia 2/2 Transient Ischemic Attack - Resolved within one hour - CT scan of the brain noncontrast is normal - MRI brain is pending - MR angiogram of the head and neck with contrast - Carotid Dopplers - Echocardiogram - Telemetry monitoring - She was started on aspirin 81 mg every morning - Simvastatin 20 mg was discontinued; she has been changed to high-dose regimen with atorvastatin 40 mg every morning - Neurology consultation COPD - Stable at this time; no evidence of hypoxia or wheezing - Continue albuterol - Continue Spiriva - Continue Pulmicort - Continue Symbicort - Continue Advair - Continue prednisone 10 mg daily; I will order before meals at bedtime Accu- Cheks as she is at risk for hyperglycemia - The patient is a baseline oxygen requirement of 2-3 L nasal cannula Depression/anxiety - Continue sertraline - Continue Wellbutrin - Continue Abilify Hypertension - Continue metoprolol Chronic low back pain - Continue Percocet when necessary Infrarenal AAA - This was noted on CT angiogram of the abdomen done in May 2016 as well as reviewing patient's records. - Day and treated and sure patient has outpatient follow-up to address this DVT prophylaxis - SCD - Marin - Lovenox CODE STATUS - Level I Disposition - Telemetry for cardiac monitoring Attending Addendum: I have physically seen and examined this patient, have supervised the medical residents activities, and agree with the H&P as noted above with the following exceptions as noted. The patient presents to the emergency department via EMS with report of sudden onset of garbled speech. Her noted the symptoms as she was trying to talk to him, and she was aware that she couldn't get the right words out. She has not had a previous occurrence of these types of symptoms. Symptoms were significantly improved by the time of my visit, but she still had some inappropriate use of words during conversation. The patient denies chest pain, palpitations, shortness of breath, cough, lower extremity swelling, vision change, hearing change, sore throat, fevers, chills, sweats, weight change, fatigue, nausea, vomiting, abdominal pain, pelvic pain, blood in urine or stool, dysuria, urinary frequency or urgency, lightheadedness , dizziness, headache, rash, abnormal bruising or bleeding, imbalance, focal or generalized weakness, numbness or tingling in arms or legs, generalized arthralgias or myalgias, back or neck pain, night sweats, or allergy symptoms. The review of systems is otherwise negative other than for that already noted above, and at least 10 systems have been reviewed. The patient is awake, well-developed and adequately nourished, alert and oriented 3, normocephalic and atraumatic, lying in bed and in no acute distress. HEENT--PERRL, EOMI, mucous membranes and oropharynx dry. Neck--supple, no JVD or bruits, thyroid normal, trachea midline, no adenopathy. Heart--normal S1 and S2, no extra beats, no murmurs, rubs or gallops. Lungs--clear bilaterally with good air movement, no respiratory distress, no accessory muscle use. Abdomen--normal bowel sounds and soft, nontender and nondistended, no hernias or masses, no organomegaly. Extremities--no cyanosis, clubbing or edema. There are good distal pulses b/l. Dermatologic--normal skin turgor, normal color, warm and dry, no abnormal lymph nodes, no rash. Neurologic--cranial nerves II through XII grossly intact, motor and sensory examination normal. Rheumatologic--normal range of motion, nontender, muscles and joints. Psychiatric--normal affect. Assessment and Plan: 1. Expressive aphasia/TIA--The patient will be admitted to telemetry for serial cardiac enzymes, cardiac rhythm monitoring and a 2-D echocardiogram with Dopplers. Unable to order MRI/MRA/MRA studies due to the presence of a neural stimulator in her low back area. We'll order a CT angiography of head and neck. Continue aspirin 81 mg chewable by mouth every morning. Simvastatin 20 mg changed to atorvastatin 40 mg daily. Check a fasting lipid profile and hemoglobin A1c. Consult neurology/PT/OT/hospital social worker. 2. COPD stable-- Continue usual regimen of albuterol/Spiriva/Pulmicort/Symbicort and prednisone. If Hospitalization is long, patient may require stress dose steroids. Hold Advair. Continue baseline nasal cannula 2-3 L. Level of Care Telemetry Advanced Directives Existing Advance Directive: No Existing Living Will: No Existing Power of Check Inspector: No Resuscitation Status FULL RESUSCITATION VTE Prophylaxis VTE Risk Assessment Done? Y/N: Yes Risk Level: Moderate Given or contraindicated: Enoxaparin (Lovenox)SQ Social Service Consult None Apply
[2017-01-02] MEDS ORDERED: OXYCODONE/ACETAMINOPHEN 5-325 TAB PO PRN (20:00)
[2017-01-02] MEDS ORDERED: PHARMACIST DISCHARGE MED REC CONSULT PRN (20:15)
[2017-01-02] MEDS ORDERED: PRT/40 PO (20:41)
--- NOTE | 2017-01-02 20:47 | DIAGNOSTIC IMAGING REPORT ---
PA AND SHALLOW OBLIQUE RADIOGRAPHS OF THE CHEST CLINICAL HISTORY: Abnormal chest radiograph. COMPARISON STUDY: Chest radiograph performed earlier today. FINDINGS: Severe emphysema is noted as well as intracanalicular electrodes. There is no pneumothorax or pleural effusion. Cardiomediastinal silhouette is stable. Right infrahilar opacity likely reflects atelectasis. The possible right lung nodule shown on prior exam is not visualized on this study. This was likely artifactual. IMPRESSION: 1. The possible right lung nodule shown on prior exam is not visualized and was likely artifactual. 2. Severe emphysema. 3. Right infrahilar opacity which favors atelectasis or normal vessels. Pneumonia could appear similar although is considered less likely. Electronically signed by: Sacha Edward M.D. 01/02/2017 8:46 PM Dictated Date/Time: 01/02/2017 8:44 PM
[2017-01-02] MEDS: ARFORMOTEROL TART 15MCG/2ML VIAL INH SCH (21:00)
[2017-01-02] MEDS ORDERED: SIMVASTATIN 20 MG TAB PO SCH (21:00)
[2017-01-02] MEDS ORDERED: IV FLUIDS COMPLETED PRN (21:15)
[2017-01-02] MEDS ORDERED: OPTIRAY 320 IV PRN (21:30)
--- NOTE | 2017-01-02 21:39 | DIAGNOSTIC IMAGING REPORT ---
CAROTID ARTERY ULTRASOUND CLINICAL HISTORY: Stroke evaluation; aphasia COMPARISON STUDY: None. TECHNIQUE: Real-time, grayscale, and color Doppler sonography of the carotid and vertebral arteries was performed. Images were viewed in the transverse and longitudinal planes. FINDINGS: There is stents with atherosclerotic plaque. Velocity measurements are listed below. COMMON CAROTID PEAK SYSTOLIC VELOCITY (CM/S): RIGHT 44 LEFT 52 ICA PEAK SYSTOLIC VELOCITY (CM/S): RIGHT 38 LEFT 120 The systolic ratio between the left internal to common carotid artery is elevated at 2.3. Antegrade flow is seen in the vertebral arteries. The external carotid arteries are patent. Blood pressure in the right arm measured 174/87. Blood pressure in the left arm measured 186/97. IMPRESSION: 1. Extensive atherosclerotic plaque. Borderline elevated velocity within the proximal left internal carotid artery with an elevated ratio. The findings are equivocal for a stenosis and could reflect 50-69% narrowing. 2. Elevated blood pressure, as above. Electronically signed by: Sacha Edward M.D. 01/02/2017 9:38 PM Dictated Date/Time: 01/02/2017 9:34 PM
[2017-01-02] MEDS ORDERED: ENOXAPARIN 40 MG/0.4 ML SYR SQ SCH (22:00)
[2017-01-02 22:01] VITALS: BP 191/80; PULSE 76; TEMP 36.7; O2SAT 100; Ht 170.2 cm; Wt 66.3 kg
--- NOTE | 2017-01-02 22:10 | DIAGNOSTIC IMAGING REPORT ---
CT ANGIOGRAPHY OF THE NECK WITH CONTRAST CLINICAL HISTORY: STROKE WORK UP COMPARISON STUDY: Carotid ultrasound performed earlier today. Technique: CT angiography of the carotid and vertebral arteries was obtained using [employer] 320 IV and 3D reconstruction on an independent workstation. NASCET criteria was utilized. A dose lowering technique was utilized adhering to the principles of ALARA. Findings: Severe emphysema is noted within visualized portions of the upper lung. There is no cervical lymphadenopathy. No mucosal lesion is identified within the neck although these may be occult by CT. No neck mass is present. There is extensive atherosclerotic plaque of the aortic arch and left subclavian artery with mild narrowing of the proximal left subclavian artery. The right vertebral artery is dominant and patent. There is no significant stenosis within the bilateral vertebral arteries. There is moderate plaque within the bilateral common carotid and internal carotid arteries. However, there is no significant stenosis of the bilateral common carotid or cervical portions of the internal carotid arteries. There is tortuosity of both internal carotid arteries. No dissection is noted within the major vessels of the neck. The CTA of the head will be reported separately. IMPRESSION: 1. Moderate atherosclerotic plaque without significant stenosis of the bilateral common carotid arteries or the cervical portions of the internal carotid arteries. 2. Dominant, patent right vertebral artery. No significant vertebral artery stenosis. No dissection. 3. Severe emphysema. 4. Extensive atherosclerotic plaque of the aortic arch and proximal left subclavian artery with mild stenosis of the proximal left subclavian artery. Electronically signed by: Sacha Edward M.D. 01/02/2017 10:08 PM Dictated Date/Time: 01/02/2017 10:02 PM
--- NOTE | 2017-01-02 22:14 | DIAGNOSTIC IMAGING REPORT ---
CTA ANGIOGRAPHY OF THE HEAD CLINICAL HISTORY: Stroke workup. Speech disturbance. COMPARISON STUDY: Head CT performed earlier today. TECHNIQUE: Helical axial images of the head were obtained following uneventful intravenous administration of 95 cc of Optiray 320. A dose lowering technique was utilized adhering to the principles of ALARA. CT DOSE: 558.65 mGy.cm FINDINGS: There is moderate plaque within the bilateral cavernous carotids without significant stenosis. The bilateral M1, M2, A1 and A2 segments are patent. No abrupt vessel cut off is identified. The posterior circulation is intact. There is an anterior communicating artery and bilateral posterior communicating arteries. No dissection is noted. No acute hemorrhage is identified on this contrast enhanced exam. Mild ventricular dilatation is likely due to atrophy. There is white matter hypodensity suggestive of small vessel disease. There are no significant calvarial abnormalities. There is minimal polypoid mucosal thickening of sphenoid sinus. IMPRESSION: 1. No intracranial aneurysm or abrupt vessel cut off identified. 2. Moderate atherosclerotic plaque within the bilateral cavernous carotids without significant stenosis. Electronically signed by: Sacha Edward M.D. 01/02/2017 10:12 PM Dictated Date/Time: 01/02/2017 10:08 PM
[2017-01-02] MEDS ORDERED: HydrALAZINE HCL 20 MG/ML VIAL IV. PRN (23:00)
[2017-01-02 23:15] VITALS: BP 155/81; PULSE 72
[2017-01-02] MEDS: BUDESONIDE/FORMOTEROL FUMARATE 160/4.5 60 PUFFS/INHALER INH SCH (23:30)
[2017-01-02] MEDS: FLUTICASONE/SALMETEROL 250/50 (ADVAIR) 14 PUFF/1 INHALER INH SCH (23:31)
[2017-01-02 23:46] LABS: URINE APPEARANCE CLEAR (CLEAR); URINE BILIRUBIN NEG (NEG); URINE COLOR YELLOW; URINE NITRITE NEG (NEG); URINE SPECIFIC GRAVITY 1.035 (1.000-1.030); UROBILINOGEN NEG (NEG); ZZUR CULT IF INDIC CLEAN CATCH NO
[2017-01-02 23:49] LABS: MANUAL MICROSCOPIC REQUIRED? NO; REVIEW REQ? NO
[2017-01-03] VITALS (8 sets, daily range): BP systolic 110–178; BP diastolic 58–101; PULSE 75–95; TEMP 36.5–36.9; O2SAT 93–97
[2017-01-03 06:55] LABS: BASO % 0.3 %; BASO ABS # 0.03 K/uL (0-0.2); COMPLETE YES; EOS % 1.3 %; HEMATOCRIT 35.6 % (37-47); IG% 0.2 %; LYMPH % 29.6 %; LYMPH ABS # 2.71 K/uL (1.2-3.4); MEAN CELL VOLUME 87.5 fL (80-100); MEAN CORPUSCULAR HEMOGLOBIN 25.6 pg (25-34); MEAN CORPUSCULAR HGB CONC 29.2 g/dl (32-36); MEAN PLATELET VOLUME 9.5 fL (7.4-10.4); MONO % 11.9 %; NEUT % 56.7 %; PLATELET COUNT 352 K/uL (130-400); RED BLOOD COUNT 4.07 M/uL (4.2-5.4); WHITE BLOOD COUNT 9.14 K/uL (4.8-10.8)
[2017-01-03 06:55] LABS: ESTIMATED AVERAGE GLUCOSE 123 mg/dl; HA1C FLAG Normal (Normal)
[2017-01-03] MEDS: ARFORMOTEROL TART 15MCG/2ML VIAL INH SCH (07:15)
[2017-01-03 07:32] LABS: BUN/CREATININE RATIO 12.3 (10-20); CHOLESTEROL/HDL RATIO 3.2; CREATININE 0.83 mg/dl (0.60-1.20); POTASSIUM 3.5 mmol/L (3.5-5.1)
[2017-01-03] MEDS ORDERED: BUDESONIDE 0.5 MG/2 ML VIAL (PULMICORT) INH SCH (08:00)
[2017-01-03] MEDS: FLUTICASONE/SALMETEROL 250/50 (ADVAIR) 14 PUFF/1 INHALER INH SCH (08:42)
[2017-01-03] MEDS: BUDESONIDE/FORMOTEROL FUMARATE 160/4.5 60 PUFFS/INHALER INH SCH (08:42)
--- NOTE | 2017-01-03 08:55 | Family Medicine Progress Note ---
Progress Note Date of Service Jan 03, 2017. Medications Current Inpatient Medications Medications (Trade) Dose Ordered Sig/Lupe Route Start Time Stop Time Status Last Admin Dose Admin Enoxaparin Sodium (Lovenox Inj) 40 mg Q24H SQ 01/02/17 22:00 02/01/17 21:59 01/02/17 23:31 40 MG Acetaminophen (Tylenol Tab) 650 mg Q4H PRN PO 01/02/17 19:30 02/01/17 19:29 01/03/17 01:48 650 MG Al Hydrox/Mg Hydrox/Simethicone (Maalox Max Susp) 15 ml Q4H PRN PO 01/02/17 19:30 02/01/17 19:29 Magnesium Hydroxide (Milk Of Magnesia Susp) 30 ml Q6H PRN PO 01/02/17 19:30 02/01/17 19:29 Polyethylene (Miralax Powder Packet) 17 gm DAILY PRN PO 01/02/17 19:30 02/01/17 19:29 Ondansetron HCl (Zofran Inj) 4 mg Q6H PRN IV 01/02/17 19:30 02/01/17 19:29 Arformoterol Tartrate (Brovana 15MCG/ 2ML Neb Soln) 15 mcg BIDR INH 01/02/17 21:00 02/01/17 20:59 Aripiprazole (Abilify Tab) 5 mg QAM PO 01/03/17 09:00 02/02/17 08:59 01/03/17 08:43 5 MG Budesonide (Pulmicort Respules 0.5MG/ 2ML Neb Soln) 0.5 mg BIDR INH 01/03/17 08:00 02/02/17 07:59 Budesonide/ Formoterol Fumarate (Symbicort 160/ 4.5 Inh) 2 puffs BID INH 01/02/17 21:00 02/01/17 20:59 01/03/17 08:42 2 PUFFS Duloxetine HCl (Cymbalta Cap) 60 mg DAILY PO 01/03/17 09:00 02/02/17 08:59 01/03/17 08:44 60 MG Salmeterol Xinafoate/ Fluticasone (Advair Diskus 250/50 Inh) 1 puff BID INH 01/02/17 21:00 02/01/17 20:59 01/03/17 08:42 1 PUFF Folic Acid (Folvite Tab) 1 mg DAILY PO 01/03/17 09:00 02/02/17 08:59 01/03/17 08:43 1 MG Losartan Potassium (coZAAR TAB) 25 mg DAILY PO 01/03/17 09:00 02/02/17 08:59 01/03/17 08:44 25 MG Metoprolol Succinate (Toprol Xl Tab) 50 mg DAILY PO 01/03/17 09:00 02/02/17 08:59 01/03/17 08:43 50 MG Oxycodone/ Acetaminophen (Percocet 5-325mg Tab) 1 tab Q6H PRN PO 01/02/17 20:00 01/16/17 19:59 Prednisone (PredniSONE TAB) 10 mg DAILY PO 01/03/17 09:00 02/02/17 08:59 01/03/17 08:43 10 MG Sertraline HCl (Zoloft Tab) 25 mg DAILY PO 01/03/17 09:00 02/02/17 08:59 01/03/17 08:43 25 MG Tiotropium [place] (Spiriva Handihaler Inhaler) 1 puff DAILY INH 01/03/17 09:00 02/02/17 08:59 01/03/17 08:44 1 PUFF Buspirone HCl (Buspar Tab) 10 mg DAILY PO 01/03/17 09:00 02/02/17 08:59 01/03/17 08:43 10 MG Miscellaneous Information (Order Awaiting Action) 1 ea QS N/A 01/03/17 08:00 02/02/17 07:59 Pantoprazole Sodium (Protonix Tab) 40 mg DAILY PO 01/03/17 09:00 02/02/17 08:59 01/03/17 08:44 40 MG Miscellaneous Information (Pharmacist Discharge Med Rec Consult) 1 ea UD PRN N/A 01/02/17 20:15 02/01/17 20:14 Miscellaneous (Iv Fluids Completed) 1 ea PRN PRN N/A 01/02/17 21:15 01/02/18 21:14 Ioversol (Optiray 320) 111 ml UD PRN IV 01/02/17 21:30 01/06/17 21:29 Hydralazine HCl (HydrALAZINE INJ) 10 mg Q4H PRN IV. 01/02/17 23:00 02/01/17 22:59 01/03/17 04:28 10 MG Aspirin (Aspirin Chew) 81 mg QAM PO 01/03/17 09:00 02/02/17 08:59 01/03/17 08:43 81 MG Atorvastatin Calcium (Lipitor Tab) 40 mg QAM PO 01/03/17 09:00 02/02/17 08:59 01/03/17 08:43 40 MG Objective Vital Signs Date Time Temp Pulse Resp B/P (MAP) Pulse Ox O2 Delivery O2 Flow Rate FiO2 01/03/17 08:16 36.8 95 18 110/58 (75) 93 Nasal Cannula 4.0 01/03/17 04:25 36.9 78 16 170/95 (120) 96 Nasal Cannula 2.0 01/03/17 04:00 Nasal Cannula 3.0 01/03/17 04:00 75 178/101 (126) 01/03/17 01:52 145/80 (101) 01/03/17 00:00 Nasal Cannula 3.0 01/03/17 00:00 36.9 79 17 128/74 (92) 97 Nasal Cannula 2.0 01/02/17 23:15 72 155/81 (105) 01/02/17 22:01 36.7 76 20 191/80 100 Nasal Cannula 3.0 01/02/17 21:24 73 20 179/103 100 Room Air 01/02/17 19:00 76 20 166/86 99 Nasal Cannula 2.0 01/02/17 17:47 96 Room Air 01/02/17 17:43 83 01/02/17 17:39 36.6 84 22 157/82 96 Room Air Laboratory Results 01/03/17 06:17 Red Blood Count 4.07, Mean Corpuscular Volume 87.5, Mean Corpuscular Hemoglobin 25.6, Mean Corpuscular Hemoglobin Concent 29.2, Mean Platelet Volume 9.5, Neutrophils (%) (Auto) 56.7, Lymphocytes (%) (Auto) 29.6, Monocytes (%) (Auto) 11.9, Eosinophils (%) (Auto) 1.3, Basophils (%) (Auto) 0.3, Neutrophils # (Auto ) 5.17, Lymphocytes # (Auto) 2.71, Monocytes # (Auto) 1.09, Eosinophils # (Auto ) 0.12, Basophils # (Auto) 0.03 01/03/17 06:17 Test 01/02/17 17:50 01/02/17 23:00 01/03/17 06:17 01/03/17 06:58 Prothrombin Time 10.3 SECONDS (9.0-12.0) Prothromb Time International Ratio 1.0 (0.9-1.1) Activated Partial Thromboplast Time 23.4 SECONDS (21.0-31.0) Partial Thromboplastin Ratio 0.9 Estimated Average Glucose 123 mg/dl Hemoglobin A1c 5.9 % (4.5-5.6) Total Bilirubin 0.2 mg/dl (0.2-1) Aspartate Amino Transf (AST/SGOT) 15 U/L (15-37) Alanine Aminotransferase (ALT/SGPT) 23 U/L (12-78) Alkaline Phosphatase 72 U/L (45-117) Total Creatine Kinase 44 U/L (26-192) Creatine Kinase MB 0.9 ng/ml (0.5-3.6) Creatine Kinase MB Ratio 2.0 (0-3.0) Troponin I < 0.015 ng/ml (0-0.045) Total Protein 7.3 gm/dl (6.4-8.2) Albumin 3.4 gm/dl (3.4-5.0) Globulin 3.9 gm/dl (2.5-4.0) Albumin/Globulin Ratio 0.9 (0.9-2) Urine Color YELLOW Urine Appearance CLEAR (CLEAR) Urine pH 8.0 (4.5-7.5) Urine Specific [place] 1.035 (1.000-1.030) Urine Protein NEG (NEG) Urine Glucose (UA) NEG (NEG) Urine Ketones NEG (NEG) Urine Occult Blood NEG (NEG) Urine Nitrite NEG (NEG) Urine Bilirubin NEG (NEG) Urine Urobilinogen NEG (NEG) Urine Leukocyte Esterase NEG (NEG) White Blood Count 9.14 K/uL (4.8-10.8) Red Blood Count 4.07 M/uL (4.2-5.4) Hemoglobin 10.4 g/dL (12.0-16.0) Hematocrit 35.6 % (37-47) Mean Corpuscular Volume 87.5 fL (80-100) Mean Corpuscular Hemoglobin 25.6 pg (25-34) Mean Corpuscular Hemoglobin Concent 29.2 g/dl (32-36) Platelet Count 352 K/uL (130-400) Mean Platelet Volume 9.5 fL (7.4-10.4) Neutrophils (%) (Auto) 56.7 % Lymphocytes (%) (Auto) 29.6 % Monocytes (%) (Auto) 11.9 % Eosinophils (%) (Auto) 1.3 % Basophils (%) (Auto) 0.3 % Neutrophils # (Auto) 5.17 K/uL (1.4-6.5) Lymphocytes # (Auto) 2.71 K/uL (1.2-3.4) Monocytes # (Auto) 1.09 K/uL (0.11-0.59) Eosinophils # (Auto) 0.12 K/uL (0-0.5) Basophils # (Auto) 0.03 K/uL (0-0.2) RDW Standard Deviation 50.6 fL (36.4-46.3) RDW Coefficient of Variation 15.8 % (11.5-14.5) Immature Granulocyte % (Auto) 0.2 % Immature Granulocyte # (Auto) 0.02 K/uL (0.00-0.02) Anion Gap 3.0 mmol/L (3-11) Est Creatinine Clear Calc Drug Dose 53.5 ml/min Estimated GFR () 77.7 Estimated GFR (Non- 67.1 BUN/Creatinine Ratio 12.3 (10-20) Calcium Level 9.0 mg/dl (8.5-10.1) Triglycerides Level 189 mg/dl (0-150) Cholesterol Level 155 mg/dl (0-200) HDL Cholesterol 48 mg/dl LDL Cholesterol, Calculated 69 mg/dl VLDL Cholesterol, Calculated 38 mg/dl Cholesterol/HDL Ratio 3.2 Bedside Glucose 91 mg/dl (70-90) Assessment and Plan DRAFT PLAN Discuss with family when they come in regarding HPI Neurology consult Echo pending Possibly home in the afternoon depending on history from family, PT/OT Resident Tracking Resident Involvement: Resident Care Provided Care Provided: Adult [facility]
[2017-01-03] MEDS ORDERED: TIOTROPIUM BROMIDE 5 PUFF/90 MCG INH INH SCH (09:00)
[2017-01-03] MEDS ORDERED: SERTRALINE HCL 50 MG TAB PO SCH (09:00)
[2017-01-03] MEDS ORDERED: LOSARTAN POTASSIUM 25 MG TAB PO SCH (09:00)
[2017-01-03] MEDS ORDERED: ARIPIprazole TAB 5 MG TAB PO SCH (09:00)
[2017-01-03] MEDS ORDERED: ATORVASTATIN 40 MG TAB PO SCH (09:00)
[2017-01-03] MEDS ORDERED: DULOXETINE HCL 60 MG CAP PO SCH (09:00)
[2017-01-03] MEDS ORDERED: METOPROLOL SUCC 50MG EXT REL TAB PO SCH (09:00)
[2017-01-03] MEDS ORDERED: ASPIRIN 81 MG CHEW PO SCH (09:00)
[2017-01-03] MEDS ORDERED: PANTOprazole SOD 40 MG TAB PO SCH (09:00)
--- NOTE | 2017-01-03 09:05 | Neurology Consultation ---
Neurology Consultation Date of Consultation: Jan 03, 2017. Attending Physician: Mayito Ace M.D. Primary Care Physician: Emigdio Draper D.O. Reason for Consultation: Patient is a 81-year-old, who was asked to see at the request of Dr. Ace, for neurologic consultation regarding acute onset aphasia. History of Present Illness Source: patient, caregiver, clinic records, hospital records This patient has a long-standing history of COPD and chronic cigarette smoking. She has a history of various cardiac issues including congestive heart failure and SVT as well as hypertension. She has not had any stroke or warning stroke as far she is aware, in the past. Patient has long-standing anxiety depressive disorder followed by psychiatry presents the of her child at age 44 from an overdose. The patient has a history of significant lumbar spinal stenosis, L3-4 and L4-5 requiring surgery in 2009 in [place]. 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 She has osteoarthritis and is fused from L2-L5. She has a lumbar spinal stimulator by pain management and is followed by Dr. Barnes. Around 1600 hours on January 02, the patient had the sudden onset of inability to speak. She knew what she wanted to say but couldn't get words out. It was garbled and nonsensical times was very frustrating for her she realized what was going on. This lasted about an hour and resolved for the most part by the time she came to the emergency room. During this time, she had no vision changes, confusion, pain, weakness, or numbness in the limbs or other symptoms. She arrived at the emergency room at 1739 hours with a temperature 36.6, pulse of 84 and regular, respiratory rate 22, blood pressure 137/82, and O2 saturation 96%. Her neurologic examination was nonfocal with no significant deficits although she was slightly confused when asked the date. Family states that the patient gets confused sometimes in the evening, according to nursing staff Chest x-ray showed a right lung nodule and COPD changes. Repeat chest x-ray did not show the nodule. CT scan of the head was unremarkable without acute changes. Carotid ultrasound revealed possible left ICA stenosis at 50-69%. However, MR angiography of the head and neck showed no significant vessel stenosis or abnormalities although there was extensive plaque in the common carotids, subclavius, and aortic arch. CBC showed some mild anemia. Urinalysis was unremarkable. Chem profile was normal except for glucose of 129 and a hemoglobin A1c of 5.9. Triglycerides are elevated at 189 and cholesterol was 155. After admission her blood pressure readings have been elevated, to as much as 178/101 earlier this morning. The patient denies weakness or numbness in the legs or feet although she has chronic pain in her low back sometimes radiating into the left leg but not down to the foot. She does not have a history of incontinence of urine however she had a urinary tract infection 3-4 weeks ago which was associated with some incontinence. Patient believes that her memory is reasonable. She does not get headaches. Overnight monitoring has shown some tachycardia and an occasional PVC but is typically in sinus rhythm and no atrial fibrillation or other dysrhythmia has been noted since admission Past Medical/Surgical History Medical Problems: (1) AAA (abdominal aortic aneurysm) Status: Acute (2) AAA (abdominal aortic aneurysm) Status: Acute (3) Atrial fibrillation with RVR Status: Acute (4) Low back pain Status: Acute (5) Sacroiliitis Status: Acute (6) Weakness Status: Acute Abdominal aortic aneurysm History of congestive heart failure and SVT with no specific cardiac dysrhythmia on monitoring although there is some tachycardia at times. Chronic significant COPD Dyslipidemia Hypertension Chronic low back pain post lumbar fusion L2-L5 in 2009, she has occasional left lower extremity radicular symptoms as well and she is followed by pain management with a spinal stimulator implanted. Post bilateral cataract surgery. Post mastectomy in the past. Post-tonsillectomy Family History Mother age 56 [address] and had hypertension Father age 43 from a motor vehicle accident with no medical issues that the patient is aware Social History Patient has been a cigarette smoker for 60 years at approximately 1 pack per day quitting in May of this year. 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 Smoking Status: Former smoker Smokeless Tobacco Use: No Alcohol Use: socially Drug Use: none Marital Status: Housing Status: lives with significant other Occupation Status: retired Allergies Coded Allergies: Latex2 -Systemic Allergic Response (Verified Allergy, Unknown, HIVES, ITCHING SWELLING,, 01/02/17) Lisinopril (Verified Adverse Reaction, Mild, cough, 01/02/17) Current Inpatient Medications Current Inpatient Medications Medications (Trade) Dose Ordered Sig/Lupe Route Start Time Stop Time Status Last Admin Dose Admin Enoxaparin Sodium (Lovenox Inj) 40 mg Q24H SQ 01/02/17 22:00 02/01/17 21:59 01/02/17 23:31 40 MG Acetaminophen (Tylenol Tab) 650 mg Q4H PRN PO 01/02/17 19:30 02/01/17 19:29 01/03/17 01:48 650 MG Al Hydrox/Mg Hydrox/Simethicone (Maalox Max Susp) 15 ml Q4H PRN PO 01/02/17 19:30 02/01/17 19:29 Magnesium Hydroxide (Milk Of Magnesia Susp) 30 ml Q6H PRN PO 01/02/17 19:30 02/01/17 19:29 Polyethylene (Miralax Powder Packet) 17 gm DAILY PRN PO 01/02/17 19:30 02/01/17 19:29 Ondansetron HCl (Zofran Inj) 4 mg Q6H PRN IV 01/02/17 19:30 02/01/17 19:29 Arformoterol Tartrate (Brovana 15MCG/ 2ML Neb Soln) 15 mcg BIDR INH 01/02/17 21:00 02/01/17 20:59 Aripiprazole (Abilify Tab) 5 mg QAM PO 01/03/17 09:00 02/02/17 08:59 Budesonide (Pulmicort Respules 0.5MG/ 2ML Neb Soln) 0.5 mg BIDR INH 01/03/17 08:00 02/02/17 07:59 Budesonide/ Formoterol Fumarate (Symbicort 160/ 4.5 Inh) 2 puffs BID INH 01/02/17 21:00 02/01/17 20:59 01/02/17 23:30 2 PUFFS Duloxetine HCl (Cymbalta Cap) 60 mg DAILY PO 01/03/17 09:00 02/02/17 08:59 Salmeterol Xinafoate/ Fluticasone (Advair Diskus 250/50 Inh) 1 puff BID INH 01/02/17 21:00 02/01/17 20:59 01/02/17 23:31 1 PUFF Folic Acid (Folvite Tab) 1 mg DAILY PO 01/03/17 09:00 02/02/17 08:59 Losartan Potassium (coZAAR TAB) 25 mg DAILY PO 01/03/17 09:00 02/02/17 08:59 Metoprolol Succinate (Toprol Xl Tab) 50 mg DAILY PO 01/03/17 09:00 02/02/17 08:59 Oxycodone/ Acetaminophen (Percocet 5-325mg Tab) 1 tab Q6H PRN PO 01/02/17 20:00 01/16/17 19:59 Prednisone (PredniSONE TAB) 10 mg DAILY PO 01/03/17 09:00 02/02/17 08:59 Sertraline HCl (Zoloft Tab) 25 mg DAILY PO 01/03/17 09:00 02/02/17 08:59 Tiotropium [place] (Spiriva Handihaler Inhaler) 1 puff DAILY INH 01/03/17 09:00 02/02/17 08:59 Buspirone HCl (Buspar Tab) 10 mg DAILY PO 01/03/17 09:00 02/02/17 08:59 Miscellaneous Information (Order Awaiting Action) 1 ea QS N/A 01/03/17 08:00 02/02/17 07:59 Pantoprazole Sodium (Protonix Tab) 40 mg DAILY PO 01/03/17 09:00 02/02/17 08:59 Miscellaneous Information (Pharmacist Discharge Med Rec Consult) 1 ea UD PRN N/A 01/02/17 20:15 02/01/17 20:14 Miscellaneous (Iv Fluids Completed) 1 ea PRN PRN N/A 01/02/17 21:15 01/02/18 21:14 Ioversol (Optiray 320) 111 ml UD PRN IV 01/02/17 21:30 01/06/17 21:29 Hydralazine HCl (HydrALAZINE INJ) 10 mg Q4H PRN IV. 01/02/17 23:00 02/01/17 22:59 01/03/17 04:28 10 MG Aspirin (Aspirin Chew) 81 mg QAM PO 01/03/17 09:00 02/02/17 08:59 Atorvastatin Calcium (Lipitor Tab) 40 mg QAM PO 01/03/17 09:00 02/02/17 08:59 Review of Systems Constitutional: No weakness, No fatigue Eyes: No worsening of vision, No diplopia ENT: No hearing loss, No tinnitus Respiratory: No cough, No shortness of breath Cardiovascular: No chest pain, No palpitations Abdomen: No pain, No nausea Musculoskeletal: + joint pain, No muscle pain Genitourinary - Female: No dysuria, No urinary incontinence Neurologic: + balance problems, No memory loss, No weakness, No numbness/ tingling Psychiatric: + depression symptoms, + anxiety Endocrine: No fatigue Hematologic / Lymphatic: No abnormal bleeding/bruising Integumentary: No rash Allergic / Immunologic: No hives Physical Exam Vital Signs (Past 24 Hrs): Date Time Temp Pulse Resp B/P (MAP) Pulse Ox O2 Delivery O2 Flow Rate FiO2 01/03/17 08:16 36.8 95 18 110/58 (75) 93 Nasal Cannula 4.0 01/03/17 04:25 36.9 78 16 170/95 (120) 96 Nasal Cannula 2.0 01/03/17 04:00 Nasal Cannula 3.0 01/03/17 04:00 75 178/101 (126) 01/03/17 01:52 145/80 (101) 01/03/17 00:00 Nasal Cannula 3.0 01/03/17 00:00 36.9 79 17 128/74 (92) 97 Nasal Cannula 2.0 01/02/17 23:15 72 155/81 (105) 01/02/17 22:01 36.7 76 20 191/80 100 Nasal Cannula 3.0 01/02/17 21:24 73 20 179/103 100 Room Air 01/02/17 19:00 76 20 166/86 99 Nasal Cannula 2.0 01/02/17 17:47 96 Room Air 01/02/17 17:43 83 01/02/17 17:39 36.6 84 22 157/82 96 Room Air Patient is right-handed. The patient is awake and alert. Speech is normal without aphasia or dysarthria. Mentation and thought processes seem intact with orientation and a fairly normal fund of knowledge. Mood and affect are normal and appropriate. Appearance and grooming are normal. The discs are sharp with positive venous pulsations. There are no exudates, hemorrhages, or blood vessel changes seen. Pupils are 3mm bilaterally and reactive to light. Extraocular eye muscles are intact without nystagmus. Visual acuity and visual crocker seem normal grossly to confrontation. There are no deficits to sensation of the face bilaterally. Corneal reflexes are positive bilaterally. Facial strength and symmetry is normal bilaterally. Hearing seems intact grossly to voice and finger rub. Palate moves well without asymmetry. There is normal sternocleidomastoid and trapezius strength bilaterally. Tongue is midline with good strength bilaterally. Neck is with full range of motion without discomfort. There are no cervical bruits. There are no cranial or ocular bruits. Heart is without murmur. Cervical, thoracic, and lumbar spine are nontender to palpation. Gait is reasonably narrow based but she is cautious particularly with turns. Stance is normal eyes open feet together. With outstretched arms there is no drift. There are no resting, postural, or action tremors. There is no ataxia with [id number] testing. There is good facility in the hands. There are no abnormal involuntary movements noted. Motor strength is 5/5 diffusely in the arms bilaterally including deltoids, biceps, brachioradialis, wrist flexors and extensors, digital design engineer, and intrinsic hand muscles. Motor strength is 5/5 diffusely in the legs bilaterally including hip flexors, quadriceps, hamstring, gastrocnemius, tibialis anterior, tibialis posterior, and peroneii muscles bilaterally. Toe extensors are normal and there is good bulk in the extensor digitorum brevis muscle bilaterally. The limbs have good tone without rigidity or spasticity, and there is no atrophy noted. Muscle bulk is normal, there is no tenderness, no myotonia noted to percussion, and no fasciculations seen. Sensory examination is intact to pin and touch throughout all four limbs. Reflexes are 2/4 in the biceps, triceps, brachioradialis, and Achilles tendons bilaterally. The left quadriceps tendon reflex is 2/4 and the right is absent Toes are downgoing with plantar stimulation bilaterally. Peripheral pulses are present and of normal quality distally in all four limbs. There is no peripheral edema noted. Laboratory Results Past 24 Hours: 01/03/17 06:17 Red Blood Count 4.07, Mean Corpuscular Volume 87.5, Mean Corpuscular Hemoglobin 25.6, Mean Corpuscular Hemoglobin Concent 29.2, Mean Platelet Volume 9.5, Neutrophils (%) (Auto) 56.7, Lymphocytes (%) (Auto) 29.6, Monocytes (%) (Auto) 11.9, Eosinophils (%) (Auto) 1.3, Basophils (%) (Auto) 0.3, Neutrophils # (Auto ) 5.17, Lymphocytes # (Auto) 2.71, Monocytes # (Auto) 1.09, Eosinophils # (Auto ) 0.12, Basophils # (Auto) 0.03 01/03/17 06:17 Test 01/02/17 17:50 01/02/17 23:00 01/03/17 06:17 01/03/17 06:58 Prothrombin Time 10.3 SECONDS (9.0-12.0) Prothromb Time International Ratio 1.0 (0.9-1.1) Activated Partial Thromboplast Time 23.4 SECONDS (21.0-31.0) Partial Thromboplastin Ratio 0.9 Estimated Average Glucose 123 mg/dl Hemoglobin A1c 5.9 % (4.5-5.6) Total Bilirubin 0.2 mg/dl (0.2-1) Aspartate Amino Transf (AST/SGOT) 15 U/L (15-37) Alanine Aminotransferase (ALT/SGPT) 23 U/L (12-78) Alkaline Phosphatase 72 U/L (45-117) Total Creatine Kinase 44 U/L (26-192) Creatine Kinase MB 0.9 ng/ml (0.5-3.6) Creatine Kinase MB Ratio 2.0 (0-3.0) Troponin I < 0.015 ng/ml (0-0.045) Total Protein 7.3 gm/dl (6.4-8.2) Albumin 3.4 gm/dl (3.4-5.0) Globulin 3.9 gm/dl (2.5-4.0) Albumin/Globulin Ratio 0.9 (0.9-2) Urine Color YELLOW Urine Appearance CLEAR (CLEAR) Urine pH 8.0 (4.5-7.5) Urine Specific [place] 1.035 (1.000-1.030) Urine Protein NEG (NEG) Urine Glucose (UA) NEG (NEG) Urine Ketones NEG (NEG) Urine Occult Blood NEG (NEG) Urine Nitrite NEG (NEG) Urine Bilirubin NEG (NEG) Urine Urobilinogen NEG (NEG) Urine Leukocyte Esterase NEG (NEG) White Blood Count 9.14 K/uL (4.8-10.8) Red Blood Count 4.07 M/uL (4.2-5.4) Hemoglobin 10.4 g/dL (12.0-16.0) Hematocrit 35.6 % (37-47) Mean Corpuscular Volume 87.5 fL (80-100) Mean Corpuscular Hemoglobin 25.6 pg (25-34) Mean Corpuscular Hemoglobin Concent 29.2 g/dl (32-36) Platelet Count 352 K/uL (130-400) Mean Platelet Volume 9.5 fL (7.4-10.4) Neutrophils (%) (Auto) 56.7 % Lymphocytes (%) (Auto) 29.6 % Monocytes (%) (Auto) 11.9 % Eosinophils (%) (Auto) 1.3 % Basophils (%) (Auto) 0.3 % Neutrophils # (Auto) 5.17 K/uL (1.4-6.5) Lymphocytes # (Auto) 2.71 K/uL (1.2-3.4) Monocytes # (Auto) 1.09 K/uL (0.11-0.59) Eosinophils # (Auto) 0.12 K/uL (0-0.5) Basophils # (Auto) 0.03 K/uL (0-0.2) RDW Standard Deviation 50.6 fL (36.4-46.3) RDW Coefficient of Variation 15.8 % (11.5-14.5) Immature Granulocyte % (Auto) 0.2 % Immature Granulocyte # (Auto) 0.02 K/uL (0.00-0.02) Anion Gap 3.0 mmol/L (3-11) Est Creatinine Clear Calc Drug Dose 53.5 ml/min Estimated GFR () 77.7 Estimated GFR (Non- 67.1 BUN/Creatinine Ratio 12.3 (10-20) Calcium Level 9.0 mg/dl (8.5-10.1) Triglycerides Level 189 mg/dl (0-150) Cholesterol Level 155 mg/dl (0-200) HDL Cholesterol 48 mg/dl LDL Cholesterol, Calculated 69 mg/dl VLDL Cholesterol, Calculated 38 mg/dl Cholesterol/HDL Ratio 3.2 Bedside Glucose 91 mg/dl (70-90) Impression 1. Acute onset expressive aphasia January 02 lasting about an hour or so, resolved, consistent with a transient ischemic attack. There was no evidence of stroke on examination today or by CT scan. MRI of the brain was desired but the patient has a spinal stimulator implanted and we have to check to see if this is compatible with an MRI. She has risk factors for stroke including hypertension, dyslipidemia, and some cardiac issues. Her blood pressure has not been adequately controlled on admission. She has no source of embolus although she has considerable plaque in her proximal vessels, as noted by CT angiography of the neck 2. Chronic low back pain post lumbar laminectomy 2009 with L2-L5 fusion. Patient has some radicular symptoms in the left lower extremity. She has a stimulator implanted for pain 3. Depression and anxiety She is followed by psychiatrist at [facility], who controls her medication. I noticed that she is on a number of medications of low dose. 4. Hypertension, not adequately controlled 5. History of severe COPD on steroids and other medication 6. Mild action tremor bilaterally with no signs of Parkinson's disease. This is likely secondary to medications 7. Possible dementia, of a mild nature. Plan 1. Consider 81 mg aspirin tablet daily 2. Check with pain management to see if her stimulator is compatible with an MRI, as I would ideally like to get an MRI of the brain to see if there was a small stroke and to see if she has chronic cerebral ischemia 3. With her cholesterol of 155 and advanced age I believe high-dose statins are contraindicated. I would use regular doses of statins. 4. Control blood pressure 5. Echocardiogram I have spoken with Dr. Siegel regarding this case including differential diagnosis and treatment options.
--- NOTE | 2017-01-03 14:06 | ECHOCARDIOGRAM REPORT ---
*NOTICE TO RECEIVING [facility] This information is strictly Confidential and protected under [place] law. [place] law prohibits you from making any further disclosure of this information unless further disclosure is expressly permitted by the written consent of the person to whom it pertains or is authorized by law. A general authorization for the release of medical or other information is not sufficient for this purpose. Hospital accepts no responsibility if the information is made available to any other person, INCLUDING THE PATIENT. Interpretation Summary * Name: SARY DOLL Study Date: 01/03/2017 06:54 AM BP: 170/95 mmHg * Patient Location: C.2T\S\S239\S\2 HR: 78 * : 1935 (M/d/yyy) Gender: Female Height: 66 in * Age: 81 yrs Ethnicity: CA Weight: 149 lb * Ordering Physician: Hany [place] * Referring Physician: Self, Referred * Performed By: Can [facility] * * Reason For Study: Cerebral Embolus/Ischemia * BSA: 1.8 m2 * -- Conclusions -- * Left ventricular systolic function is normal. * No regional wall motion abnormalities noted. * Ejection Fraction = 65-70%. * There is borderline concentric left ventricular hypertrophy. * Grade I diastolic dysfunction, (abnormal relaxation pattern). * No evidence of an atrial septal defect or patent foramen ovale. Procedure Details * A complete two-dimensional transthoracic echocardiogram was performed (2D, M-mode, Doppler and color flow Doppler). * A saline contrast injection was performed to assess for cardiac shunting. * The injection was performed through an intravenous line in the right arm. * The attending nurse who injected the saline contrast was Zi Sousa RN. * A total of 10 cc of agitated saline was given. Left Ventricle * The left ventricle is normal in size. * There is borderline concentric left ventricular hypertrophy. * Ejection Fraction = 65-70%. * Left ventricular systolic function is normal. * No regional wall motion abnormalities noted. Atria * The left atrial size is normal. * Right atrial size is normal. * There is no Doppler evidence for an atrial septal defect. * Injection of contrast documented no interatrial shunt. Mitral Valve * The mitral valve anatomy is normal. * There is no mitral valve stenosis. * Significant mitral regurgitation is absent. Tricuspid Valve * The tricuspid valve is not well visualized, but is grossly normal. * Significant tricuspid regurgitation is absent. Aortic Valve * The aortic valve is not well visualized. * The aortic valve opens well. * No hemodynamically significant valvular aortic stenosis. * No aortic regurgitation is present. Pulmonic Valve * The pulmonary valve is not well seen, but the Doppler examination is normal without significant regurgitation or stenosis. Great Vessels * The aortic root is normal size. * The pulmonary is not well visualized. Pericardium/Pleural * There is no pericardial effusion. Great Vessels * Normal inferior vena cava size and collapsability with sniff indicates a normal right atrial pressure of 3 mmHg Left Ventricular Diastolic Function * Grade I diastolic dysfunction, (abnormal relaxation pattern). MMode 2D Measurements and Calculations IVSd 1.0 cm IVSs 1.2 cm LVIDd 4.4 cm LVIDs 2.9 cm LVPWd 1.0 cm LVPWs 1.5 cm IVS/LVPW 1.0 FS 34.8 % EDV(Teich) 87.8 ml ESV(Teich) 31.4 ml EF(Teich) 64.3 % EDV(cubed) 85.3 ml ESV(cubed) 23.6 ml EF(cubed) 72.3 % % IVS thick 20.0 % % LVPW thick 45.0 % LV mass(C)d 151.3 grams LV mass(C)dI 85.7 grams/m\S\2 LV mass(C)s 124.0 grams LV mass(C)sI 70.3 grams/m\S\2 CO(Teich) 4.5 l/min CI(Teich) 2.6 l/min/m\S\2 SV(Teich) 56.4 ml SI(Teich) 32.0 ml/m\S\2 CO(cubed) 4.9 l/min CI(cubed) 2.8 l/min/m\S\2 SV(cubed) 61.7 ml SI(cubed) 35.0 ml/m\S\2 Ao root diam 3.0 cm Ao root area 6.8 cm\S\2 ACS 1.5 cm LA dimension 2.9 cm LA/Ao 0.99 LVAd ap4 29.8 cm\S\2 LVLd ap4 8.3 cm EDV(MOD-sp4) 90.0 ml LVAs ap4 15.2 cm\S\2 LVLs ap4 6.7 cm ESV(MOD-sp4) 29.0 ml EF(MOD-sp4) 67.8 % LVAd ap2 29.8 cm\S\2 LVLd ap2 8.1 cm EDV(MOD-sp2) 94.0 ml LVAs ap2 15.9 cm\S\2 LVLs ap2 7.1 cm ESV(MOD-sp2) 31.0 ml EF(MOD-sp2) 67.0 % CO(MOD-sp4) 4.9 l/min CI(MOD-sp4) 2.8 l/min/m\S\2 SV(MOD-sp4) 61.0 ml SI(MOD-sp4) 34.6 ml/m\S\2 CO(MOD-sp2) 5.0 l/min CI(MOD-sp2) 2.9 l/min/m\S\2 SV(MOD-sp2) 63.0 ml SI(MOD-sp2) 35.7 ml/m\S\2 Doppler Measurements and Calculations MV E max anshu 71.3 cm/sec MV A max anshu 108.0 cm/sec MV E/A 0.66 MV P1/2t max anshu 70.5 cm/sec MV P1/2t 89.7 msec MVA(P1/2t) 2.5 cm\S\2 MV dec slope 230.1 cm/sec\S\2 MV dec time 0.34 sec Ao V2 max 165.5 cm/sec Ao max PG 11.1 mmHg Ao max PG (full) 8.3 mmHg LV V1 max PG 2.8 mmHg LV V1 max 83.4 cm/sec PA V2 max 90.1 cm/sec PA max PG 3.2 mmHg
[2017-01-03] MEDS ORDERED: ASPI81TA28 PO ×2 (15:10)
--- NOTE | 2017-01-03 15:18 | Discharge Instructions ---
Discharge Instructions Date of Service Jan 03, 2017. Admission Reason for Admission: Aphasia Discharge Discharge Diagnosis / Problem: Suspected TIA Discharge Goals Goal(s): Improve disease control, Improve nutritional status, Diagnostic testing Activity Recommendations Activity Limitations: resume your previous activity Driving or Machine Use: follow up with PCP . Instructions / Follow-Up Instructions / Follow-Up Risk Factors for Stroke: You can reduce your chances of stroke by working with your medical provider to adopt a healthy lifestyle. Some specific ways to lower your chance of stroke are: * If you are a smoker, now is the time to stop smoking cigarettes * If you are diabetic, improve the control of your blood sugars * Avoid excessive amounts of alcohol * Control high blood pressure * Lose weight if you are overweight * Be sure to lead an active lifestyle * Eat a healthy diet low in salt, cholesterol and fat You should know about other risk factors for stroke that you are unable to control. These include: * Age 55 years or older * Male gender * Certain racial groups: , or / * Family History of Stroke, Mini stroke or Heart Attack * Sickle Cell Disease Follow Up: It is important for you to keep your follow up appointments with your medical provider. Current Hospital Diet Patient's current hospital diet: Regular Diet Discharge Diet Recommended Diet: AHA Diet (Heart Healthy) Pending Studies Studies pending at discharge: no Laboratory Results Hemoglobin A1c Test 01/02/17 17:50 Range/Units Estimated Average Glucose 123 mg/dl Hemoglobin A1c 5.9 H 4.5-5.6 % Lipid Panel Test 01/03/17 06:17 Range/Units Triglycerides Level 189 H 0-150 mg/dl Cholesterol Level 155 0-200 mg/dl HDL Cholesterol 48 mg/dl Cholesterol/HDL Ratio 3.2 LDL Cholesterol, Calculated 69 mg/dl Medical Emergencies . Who to Call and When: Medical Emergencies: Call 911 immediately if you experience any of the following warning signs and symptoms of Stroke: * Sudden numbness or weakness of the face, arm or leg, especially on one side of the body * Sudden confusion, trouble speaking or understanding * Sudden trouble seeing in one or both eyes * Sudden trouble walking, dizziness, loss of balance or coordination * Sudden severe headache with no cause Do not delay calling 911 if you experience any warning signs or symptoms of a stroke. Delay in seeking medical attention may affect what treatments can be given to you. . Non-Emergent Contact Non-Emergency issues call your: Primary Care Provider Contact Number: . . "Provider Documentation" section prepared by Guillermo Siegel. . Stroke Core Measures Reason no t-PA for Stroke: Treatment not indicated Reason no antithrom by day 2: Treatment provided - N/A Reason no antithrom at D/C: Treatment provided - N/A Reason no statin at D/C: Treatment provided - N/A Reason no anticoag w/a fib: Treatment not indicated VTE Core Measure Inpt VTE Proph given/why not?: Enoxaparin (Lovenox)SQ
--- NOTE | 2017-01-03 15:59 | Pharmacy Progress Note ---
Pharmacist Stroke Counseling Date of Service Jan 03, 2017. Scope Pharmacy has been consulted to provide medication discharge counseling for this patient admitted with ischemic stroke/hemorrhagic stroke/ transient ischemic attack as per the Pharmacist Discharge Counseling for Stroke Patients Protocol. Medications on Discharge New Medications: Aspirin (Aspirin Ec) 81 Mg Tab 81 MG PO DAILY for 90 Days, #90 TAB 3 Refills Continued Medications: Albuterol Sulf (Proventil 0.083% 2.5MG/3ML) 2.5 Mg/3 Ml Nebu 2.5 MG INH QID PRN for SOB/Wheezing, EA Albuterol Sulfate (Proair Respiclick) 108 Mcg/Act Aer 2 PUFFS INH Q4 PRN for SOB/Wheezing Arformoterol Tartrate (Brovana) 15 Mcg/2 Ml Neb 15 MCG INH BID, INHALER Aripiprazole (Abilify) 5 Mg Tab 5 MG PO QAM Budesonide (Inhalation) (Pulmicort) 0.5 Mg/2 Ml Rena 0.5 MG PO BID Budesonide/Formoterol Fumarate (Symbicort 160/4.5 Inhaler ) Aero 2 PUFFS INH BID, INHALER Buspirone HCl (Buspirone HCl) 10 Mg Tab 10 MG PO DAILY Docusate Sodium (Docusate Sodium) 100 Mg Cap 100 MG PO DAILY Duloxetine HCl (Duloxetine HCl) 60 Mg Cap 60 MG PO DAILY Ergocalciferol (Vitamin D 49064 Unit) 50,000 Unit Cap 72503 UNIT PO WK, CAP Fluticasone Prop/Salmeterol (Advair Diskus 250/50 60 Dose) 1 Ea Aerp 1 PUFF INH BID, INHALER Fluticasone Propionate (Nasal) (Flonase Allergy Relief) 50 Mcg/Act Spr 1 SPRAY LUCIA BID Folic Acid (Folvite) 1 Mg Tab 1 MG PO DAILY, TAB Home O2 Therapy (Oxygen) Gas 2 LITERS NA HS Ipratropium [place] (Nasal) (Ipratropium [place]) 0.06 % Spr 1 UNIT INH Q4 Losartan Potassium (Losartan Potassium) 25 Mg Tab 25 MG PO DAILY Metoprolol Succ (Toprol Xl) (Toprol-Xl) 50 Mg Tabcr 50 MG PO DAILY for 30 Days, #30 TAB 5 Refills Oxycodone/Acetaminophen 5MG/325MG (Percocet 5MG/325MG) Tab 1 TABLET PO Q6H PRN for Pain, TAB PAIN Pantoprazole (Protonix) 20 Mg Tab 40 MG PO DAILY, #30 TAB Prednisone Tab (Prednisone) 10 Mg Tab 10 MG PO DAILY, TAB Sertraline (Zoloft) 25 Mg Tab 25 MG PO DAILY, TAB Simvastatin (Simvastatin) 20 Mg Tab 20 MG PO QPM Tiotropium [place] (Spiriva Handihaler) 30 Puff/540 Mcg Aerp 2 CAP INH DAILY, INHALER Action The above medications, specifically ones for stroke treatment/prophylaxis, have been reviewed in detail with the patient and/or patient event representative(s) prior to discharge. This includes indication, common adverse reactions, drug interactions, and medication administration. Medication counseling has been employed using the teach-back method to ensure understanding. Outcome The patient and/or patient event representative(s) have demonstrated understanding of the medications. Please note, they are aware that the pharmacist will call them within 72 hours post-discharge to confirm that the appropriate medications are being taken and answer any further medication related questions the patient might have at that time. Contact information Individual to be contacted: Sean Relationship to patient (if applicable): n/a Phone number: [phone] Best time to call: noon Additional comments: Provided education in regards to new medications to both patient and her (Richard). Counseled on adverse effects of Aspirin, which the patient had been on once before. Reviewed old medications that were continued on discharge. Patient and unsure if still taking many of the medications listed. Informed them that pharmacy will review the medications again during the follow up phone call and remove any old medications that she is not taking. Thank you for allowing pharmacy to be involved in the care of this patient. Please call [phone] or [phone] with any additional questions
--- NOTE | 2017-01-03 16:15 | Discharge Summary ---
Discharge Summary Date of Service Jan 03, 2017. (Guillermo Siegel MD) Discharge Summary Admission Date: Jan 02, 2017 at 19:53 Discharge Date: Jan 03, 2017 Discharge Disposition: Home Principal Diagnosis: Suspected TIA Immunizations: Have You Had Influenza Vaccine: N/A History of Tetanus Vaccine?: Yes Tetanus Immunization Date: May 14, 2005 History of Pneumococcal: Yes Pneumococcal Date: May 14, 2005 History of Hepatitis B Vaccine: No Consultations: [facility] [place] Neurology - Dr Atkinson (Guillermo Siegel MD) Medication Reconciliation New Medications: Aspirin (Aspirin Ec) 81 Mg Tab 81 MG PO DAILY for 90 Days, #90 TAB 3 Refills Continued Medications: Albuterol Sulf (Proventil 0.083% 2.5MG/3ML) 2.5 Mg/3 Ml Nebu 2.5 MG INH QID PRN for SOB/Wheezing, EA Albuterol Sulfate (Proair Respiclick) 108 Mcg/Act Aer 2 PUFFS INH Q4 PRN for SOB/Wheezing Arformoterol Tartrate (Brovana) 15 Mcg/2 Ml Neb 15 MCG INH BID, INHALER Aripiprazole (Abilify) 5 Mg Tab 5 MG PO QAM Budesonide (Inhalation) (Pulmicort) 0.5 Mg/2 Ml Rena 0.5 MG PO BID Budesonide/Formoterol Fumarate (Symbicort 160/4.5 Inhaler ) Aero 2 PUFFS INH BID, INHALER Buspirone HCl (Buspirone HCl) 10 Mg Tab 10 MG PO DAILY Docusate Sodium (Docusate Sodium) 100 Mg Cap 100 MG PO DAILY Duloxetine HCl (Duloxetine HCl) 60 Mg Cap 60 MG PO DAILY Ergocalciferol (Vitamin D 43889 Unit) 50,000 Unit Cap 57263 UNIT PO WK, CAP Fluticasone Prop/Salmeterol (Advair Diskus 250/50 60 Dose) 1 Ea Aerp 1 PUFF INH BID, INHALER Fluticasone Propionate (Nasal) (Flonase Allergy Relief) 50 Mcg/Act Spr 1 SPRAY LUCIA BID Folic Acid (Folvite) 1 Mg Tab 1 MG PO DAILY, TAB Home O2 Therapy (Oxygen) Gas 2 LITERS NA HS Ipratropium [place] (Nasal) (Ipratropium [place]) 0.06 % Spr 1 UNIT INH Q4 Losartan Potassium (Losartan Potassium) 25 Mg Tab 25 MG PO DAILY Metoprolol Succ (Toprol Xl) (Toprol-Xl) 50 Mg Tabcr 50 MG PO DAILY for 30 Days, #30 TAB 5 Refills Oxycodone/Acetaminophen 5MG/325MG (Percocet 5MG/325MG) Tab 1 TABLET PO Q6H PRN for Pain, TAB PAIN Pantoprazole (Protonix) 20 Mg Tab 40 MG PO DAILY, #30 TAB Prednisone Tab (Prednisone) 10 Mg Tab 10 MG PO DAILY, TAB Sertraline (Zoloft) 25 Mg Tab 25 MG PO DAILY, TAB Simvastatin (Simvastatin) 20 Mg Tab 20 MG PO QPM Tiotropium [place] (Spiriva Handihaler) 30 Puff/540 Mcg Aerp 2 CAP INH DAILY, INHALER Discharge Exam Mrs Alvarez is feeling back to her normal self this morning. No difficulty in speech or thinking. She is mildly disoriented in time but is close - she thinks it is the (it is the ) November (it is December) 2017 (It is 2016). She is orientated to place and person. Her notes she is back to her baseline functioning. She does appear to have mild dementia - and is unclear exactly why she is here and is having difficulty remember recent events. She has mild back pain but this is ongoing for many years (known diagnosis of spinal stenosis) and she has a stimulation device for this. 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 Unable to get MRI due to nonMRI compatible spinal stimulator as discussed last week with Dr. Barnes when trying to get MRI of her lumbar spine to evaluate pain. Neuro input appreciated. Will add aspirin and continue moderate dose statin. Review of Systems: Constitutional: No fever Respiratory: No shortness of breath Cardiovascular: No chest pain Neurologic: No weakness Psychiatric: No depression symptoms Physical Exam: General Appearance: no apparent distress Respiratory/Chest: lungs clear, no respiratory distress Cardiovascular: regular rate, rhythm Abdomen / GI: normal bowel sounds, non tender, soft Neurologic/Psychiatric: alert, + pertinent finding (oriented x 2) Skin: warm/dry (Jessica Slater M.D.) Hospital Course Mrs Alvarez was observed overnight for aphasia. It is unclear how long this episode lasted as she has said both 5 minutes to 1 hour to different providers. During this time she was unable to get words out which made her very frustrated. She did not feel otherwise unwell or dizzy. Her speech returned rapidly. She denied any face, arm or leg weakness or change in sensation. CT scan of the head was unremarkable without acute changes. Carotid ultrasound revealed possible left ICA stenosis at 50-69%. CT angiography of the head and neck showed no significant vessel stenosis or abnormalities although there was extensive plaque in the common carotids, subclavius, and aortic arch. Her blood pressure has been labile - no changes to her outpatient antihypertensives were made. Echo - LVEF 60-65% without any thrombus She was reviewed by [facility] [place] neurology who recommended MRI however she is unable to have this due to her back stimulation device and is unlikely to change analyst. She was treated with aspirin and given her age and cholesterol she was kept on moderate intensity statin as recommended by neurology (simvastatin 20mg). This may be increased to 40mg as outpatient if appropriate. Follow up as below. Total Time Spent: Less than 30 minutes This includes examination of the patient, discharge planning, medication reconciliation, and communication with other providers. (Guillermo Siegel MD) Resident Physician Supervision Note: I was present with Dr. Siegel in bedside. I verified the landaverde history and physical, reviewed labs and image studies, discussed the case with the resident and agree with the findings and care plan. Total Time Spent: Greater than 30 minutes (40) (Jessica Slater M.D.) Discharge Instructions Please refer to the electronic Patient Visit Report (Discharge Instructions) for additional information. (Guillermo Siegel MD) Follow-Up Follow up arranged with Dr Simeon on Sunday at 11am. (Guillermo Siegel MD) Additional Copies To Emigdio Draper D.O.; Josh. Simeon M.D.
[2017-01-04] MEDS ORDERED: ATORVASTATIN 20 MG TAB PO SCH (09:00)
[2017-01-05] MEDS ORDERED: SPRIN/30 INH ×2 (01:36)
[2017-01-05] MEDS ORDERED: METO50TA7 PO ×2 (09:57)
[2017-01-05] MEDS ORDERED: ALBU18002 INH ×2 (18:02)
[2017-01-05] MEDS ORDERED: CLC100X PO ×2 (18:19)
[2017-01-05] MEDS ORDERED: FOLI1TAB7 PO ×2 (18:19)
[2017-01-05] MEDS ORDERED: BSP/10 PO ×2 (18:19)
[2017-01-05] MEDS ORDERED: ERGO500037 PO ×2 (18:25)
[2017-01-05] MEDS ORDERED: PRT/20 PO ×2 (18:25)
[2017-01-05] MEDS ORDERED: SIMV-151 PO ×2 (20:40)
[2017-01-05] MEDS ORDERED: CZR25 PO ×2 (20:40)
[2017-01-05] MEDS ORDERED: CYM60 PO ×2 (20:41)
--- NOTE | 2017-01-08 13:06 | Pharmacy Progress Note ---
Pharmacist Post D/C Phone Note Date of phone call: Jan 05, 2017 - left message The patient and/or patient industrial relations representative(s) were unable to be reached for a follow-up phone call within the 72 hour time frame. Discharge counseling pharmacist contact information has already been provided to the patient should questions arise. Thank you for allowing us to be involved in the care of this patient.
--- NOTE | 2017-01-11 13:26 | EDITING REQUIRED CODING QUERY ---
SUPPORTING DIAGNOSIS NEEDED A supporting diagnosis is required for the test/procedure performed on this patient in order for us to be reimbursed by the patient's insurance. Please provide a supporting diagnosis for the following test/procedure listed below next to the test name along with your signature. *If there is no additional diagnosis for this patient that would support the following test/procedure please document that below next to the test/procedure. Test(s)/Procedure(s) that require a supporting diagnosis: * HEMOGLOBIN A1C DIAGNOSIS: Possible TIA Provider Signature: Jessica [facility] Date: ___01/13/17____ Thank you Leyda Davison [employer] Once completed, please kindly fax back to [phone] For questions please call [phone]
[2017-01-27] MEDS ORDERED: FRRS300 PO (15:48)
[2017-01-27] MEDS ORDERED: VTMB12 PO (15:48)
[2017-01-27] MEDS ORDERED: ERTA1INJ IV (15:49)
[2017-01-28] MEDS ORDERED: IPRASOL4 INH (11:09)
== END 2017-01-03 17:15 | disposition home or self-care (01) ==
LOC: EDBD 17:34 → C.EDC 17:35 → CANBEDREQ 19:45 → C.2T 19:53 → ENRESERV 20:10
PROVIDERS: ADMIT Student in an Organized Health Care Education/Training Program; ATTEND Family Medicine
DX: R47.01 Aphasia (principal); G45.9 Transient cerebral ischemic attack, unspecified; E78.00 Pure hypercholesterolemia, unspecified; I10 Essential (primary) hypertension; J44.9 Chronic obstructive pulmonary disease, unspecified; Z99.81 Dependence on supplemental oxygen; Z79.52 Long term (current) use of systemic steroids; G89.29 Other chronic pain; M54.9 Dorsalgia, unspecified; I71.4 Abdominal aortic aneurysm, without rupture; F41.8 Other specified anxiety disorders; Z98.1 Arthrodesis status; R91.1 Solitary pulmonary nodule; Z82.49 Family history of ischemic heart disease and other diseases of the circulatory system; Z87.891 Personal history of nicotine dependence; Z96.89 Presence of other specified functional implants

== ENCOUNTER 2017-01-05 12:11 | Emergency (ER) | payer OTHER, MEDICARE ==
[~2017-01-05] VITALS: Ht 167.6 cm; Wt 68.4 kg
[~2017-01-05 12:11] MED LIST changes: +ABL5 PO; +ADVIN25/60 INH; +ALBINS/ INH; -ALBU0.08 INH; -ALBU1AER9; +ARFO15NE INH; +ASPI81TA28 PO; -ATRINSX NEB; -BRVIN; +IPRA0.06 INH; +METO50TA7 PO; -MONT1TAB3 PO; +OXYC-57 PO; +SERT25TA PO; +SPRIN/30 INH
[2017-01-05 12:25] VITALS: TEMP 36.9; Ht 167.6 cm; Wt 68.4 kg
[2017-01-05] MEDS ORDERED: ONDA4TAB10 SL (12:34)
[2017-01-05] MEDS ORDERED: DONE1TAB11 PO (12:34)
[2017-01-05] MEDS ORDERED: CITA10TA4 PO (12:34)
[2017-01-05] MEDS ORDERED: CHOL1CAP57 PO (12:34)
--- NOTE | 2017-01-05 12:45 | EMERGENCY ROOM VISIT NOTE ---
History Report prepared by Kaitlin: Ryley Garcia Under the Supervision of: Dr. Simon Jalloh M.D. First contact with patient: 12:32 Stated Complaint: chest pain/ back pain History of Present Illness The patient is a 81 year old female who presents to the Emergency Room with complaints of persistent chest pain that started earlier this morning. She says that her woke her up before any pain came on. She states that she was just laying in bed when she started having back pain around 4 and a half hours ago. The patient notes that the pain shortly thereafter moved to her chest, and her chest pain has been constant ever since then. She rates the pain as a 7 or an 8 out of 10 in severity, and is worsened with laying flat. The patient says the pain has been at that severity since it has started. The patient adds that she still has the back pain, which feels like "inside" pain. Per the patient's , the patient was admitted here for a mini-stroke 2 days ago, and had an echo done. The patient was seeing her doctor earlier today for a checkup, and was then referred here for evaluation. Her mini-stroke symptoms have resolved, which included an inability to think of words to say. She says that she is normally on 3 liters of oxygen for controlled COPD. She has been taking her inhalers as per usual. She denies any fevers, chills, shortness of breath, diaphoresis, cough, congestion, nausea, vomiting, abdominal pain, or leg swelling.. The patient's adds that the patient had heart failure several years ago, which has resolved. The patient is noted to have had a history of an abdominal aortic aneurysm, which was last checked in May. She is not on any blood thinners. The patient has no history of any blood clots in her legs or lungs. Source of History: patient, spouse/significant other Onset: Earlier this morning Position: chest Symptom Intensity: 7 or 8 out of 10 in severity Timing: other (persistent) Modifying Factors (Worsening): other (laying flat) Associated Symptoms: + back pain, No fevers, No chills, No diaphoresis, No cough, No SOB, No nausea, No vomiting, No abdominal pain Note: Associated symptoms: Denies leg swelling. Review of Systems See HPI for pertinent positives and negatives. A total of ten systems were reviewed and were otherwise negative. 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 (10) SVT (supraventricular tachycardia) Social History Problems: (1) Tobacco Use Disorder Family History No significant family history Social History Smoking Status: Former Smoker Alcohol Use: heavy Drug Use: none Marital Status: Housing Status: lives with significant other Occupation Status: retired Current/Historical Medications Scheduled Arformoterol Tartrate (Brovana), 15 MCG INH BID Aripiprazole (Abilify), 5 MG PO QAM Aspirin (Aspirin Ec), 81 MG PO DAILY Budesonide (Inhalation) (Pulmicort), 0.5 MG PO BID Budesonide/Formoterol Fumarate (Symbicort 160/4.5 Inhaler ), 2 PUFFS INH BID Buspirone HCl (Buspirone HCl), 10 MG PO DAILY Citalopram Hydrobromide (Citalopram Hydrobromide), 10 MG PO DAILY Docusate Sodium (Docusate Sodium), 100 MG PO DAILY Donepezil Hydrochloride (Donepezil Hcl), 5 MG PO DAILY Duloxetine HCl (Duloxetine HCl), 60 MG PO DAILY Ergocalciferol (Vitamin D 84108 Unit), 50,000 UNIT PO WK Famotidine (Pepcid), 20 MG PO BID Fluticasone Prop/Salmeterol (Advair Diskus 250/50 60 Dose), 1 PUFF INH BID Fluticasone Propionate (Nasal) (Flonase Allergy Relief), 1 SPRAY LUCIA BID Folic Acid (Folvite), 1 MG PO DAILY Home O2 Therapy (Oxygen), 2 LITERS NA HS Ipratropium [place] (Nasal) (Ipratropium [place]), 1 UNIT INH Q4 Losartan Potassium (Losartan Potassium), 25 MG PO DAILY Metoprolol Succ (Toprol Xl) (Toprol-Xl), 50 MG PO DAILY Ondasetron Odt (Zofran Odt), 4 MG SL TID Pantoprazole (Protonix), 40 MG PO DAILY Prednisone Tab (Prednisone), 10 MG PO DAILY Sertraline (Zoloft), 25 MG PO DAILY Simvastatin (Simvastatin), 20 MG PO QPM Tiotropium [place] (Spiriva Handihaler), 2 CAP INH DAILY Scheduled PRN Albuterol Sulf (Proventil 0.083% 2.5MG/3ML), 2.5 MG INH QID PRN for SOB/Wheezing Albuterol Sulfate (Proair Respiclick), 2 PUFFS INH Q4 PRN for SOB/Wheezing Oxycodone/Acetaminophen 5MG/325MG (Percocet 5MG/325MG), 1 TABLET PO Q6H PRN for Pain Miscellaneous Medications Cholecalciferol (Vitamin D3), Unknown Dose Allergies Coded Allergies: Latex2 -Systemic Allergic Response (Verified Allergy, Unknown, HIVES, ITCHING SWELLING,, 01/02/17) Lisinopril (Verified Adverse Reaction, Mild, cough, 01/02/17) Physical Exam Vital Signs Date Time Temp Pulse Resp B/P (MAP) Pulse Ox O2 Delivery O2 Flow Rate FiO2 01/05/17 17:26 66 18 155/67 100 01/05/17 16:46 68 18 154/95 100 Nasal Cannula 3.0 01/05/17 14:42 67 21 152/73 100 Nasal Cannula 3.0 01/05/17 13:23 62 20 133/83 100 Nasal Cannula 3.0 01/05/17 12:58 64 15 151/77 100 Room Air 01/05/17 12:55 100 Nasal Cannula 3.0 01/05/17 12:55 100 Nasal Cannula 3.0 01/05/17 12:25 36.9 63 22 140/69 100 Nasal Cannula 3.0 01/05/17 12:24 62 Physical Exam GENERAL: Awake, alert, chronically ill-appearing, in no acute distress HENT: Normocephalic, atraumatic. Oropharynx unremarkable. EYES: Normal conjunctiva. Sclera non-icteric. NECK: Supple. No nuchal rigidity. FROM. No JVD. RESPIRATORY: Sounds diminished at bases but clear interiorly. Scattered wheezes. CARDIAC: Regular rate, normal rhythm. Extremities warm and well perfused. Pulses equal. ABDOMEN: Soft, non-distended. Mild epigastric ttp. No rebound or guarding. No masses. RECTAL: Deferred. MUSCULOSKELETAL: Left AC has old skin tear with some mild surrounding erythema but no crepitus, induration or fluctuance. Chest examination reveals no tenderness. The back is symmetrical on inspection without obvious abnormality. There is no CVA tenderness to palpation. LOWER EXTREMITIES: Calves are equal size bilaterally and non-tender. No edema. No discoloration. NEURO: Normal sensorium. No sensory or motor deficits noted. SKIN: No rash or jaundice noted. Medical Decision & Procedures ER Provider Diagnostic Interpretation: Radiology results as stated below per my review and radiologist interpretation: CHEST ONE VIEW PORTABLE CLINICAL HISTORY: Chest pain. COMPARISON STUDY: Chest radiograph January 02, 2017. FINDINGS: Intracanalicular electrodes are noted. Cardiomediastinal silhouette is normal. Severe emphysema is noted. There are old right rib fractures. No pneumothorax or pleural effusion is present. Linear bibasilar opacities favor atelectasis. There is no consolidation to suggest pneumonia. IMPRESSION: 1. No acute findings. 2. Severe emphysema. Electronically signed by: Sacha Edward M.D. 01/05/2017 1:15 PM Dictated Date/Time: 01/05/2017 1:13 PM CHEST CTA for AORTIC DISSECTION CT DOSE: HISTORY: Back pain. Assess for aortic dissection. TECHNIQUE: Multiaxial CT images of the chest were performed both before and after the intravenous administration of contrast to evaluate the aorta. Maximal intensity projection images were also obtained. A dose lowering technique was utilized adhering to the principles of ALARA. COMPARISON STUDY: Chest abdomen and pelvis CTA 05/15/2016. FINDINGS: Noncontrast imaging through the chest shows no evidence for an intramural hematoma within the thoracic aorta. Mild narrowing within the proximal left subclavian artery due to the atherosclerotic plaque. Moderate calcified and noncalcified atherosclerotic plaque within the aortic arch and descending thoracic aorta, unchanged. Normal caliber thoracic aorta with no evidence for dissection. The heart is normal in size. No pleural or pericardial effusions. The central pulmonary arteries are patent. No mediastinal or hilar lymphadenopathy. Spinal stimulator leads are identified and terminates within the mid thoracic region. Old, healed bilateral rib fractures. The central airways are patent. No pneumothorax. Moderate to severe emphysema. Suspect a prior left mastectomy. Bibasilar densities favor atelectasis/dependent change. IMPRESSION: 1. No evidence for an aortic dissection. 2. Emphysema. 3. Bibasilar densities favor atelectasis/dependent change. 4. Additional findings as described above. Electronically signed by: Daniel Cummings M.D. 01/05/2017 2:15 PM Dictated Date/Time: 01/05/2017 2:08 PM ANGIO ABD/PELVIS WITH CONTRAST CLINICAL HISTORY: 81 years-old Female presenting with BACK-CHEST PAIN / KNOWN AAA. TECHNIQUE: Multidetector CT angiography of the abdomen and pelvis was performed after the administration of intravenous contrast. 3-D volumetric and/or maximum intensity projection (MIP) images were subsequently reconstructed for review. IV contrast: 94 mL of Optiray 320. A dose lowering technique was used consistent with the principles of ALARA (as low as reasonably achievable). COMPARISON: 05/15/2016. CT DOSE (mGy.cm): The estimated cumulative dose is 725.45 mGy.cm. FINDINGS: Glass Sander Belt topogram: Posterior lumbar fusion hardware and spinal stimulator noted. Dependent opacities likely atelectasis. Normal heart size. No pericardial or pleural effusion. Suggestion of hepatic steatosis. No biliary ductal dilatation. Gallbladder normal. Pancreas, spleen, and adrenal glands are normal. Right kidney demonstrates focal cortical defect in the anterior aspect of the interpolar region, possibly indicating scarring from prior infection, trauma, or infarct. No hydronephrosis. Ureters normal. Bladder under distended. Normal CT appearance of the ovaries and uterus. Moderate stool burden throughout the normal caliber colon. No bowel obstruction. Normal appendix. Mild apparent antral wall thickening of the stomach, nonspecific. No free fluid or gas. No lymphadenopathy. Significant calcified and noncalcified atherosclerotic plaque of the mildly dilated and tortuous abdominal aorta. Redemonstration of the infrarenal abdominal aortic aneurysm, which now measures up to 5 x 5.1 cm in maximal transverse dimension, previously 4.5 x 4.8 cm. Significance noncalcified mural thrombus. The aneurysm sac extends from immediately distal to the patent single right main renal artery to the level of the aortic bifurcation. Iliac, superior mesenteric, and bilateral single main renal arteries patent at their origins and distally. No periaortic fat stranding to suggest rupture. Atherosclerosis of the bilateral iliac vessels, which are nonstenotic. Proximal superficial femoral and deep femoral vessels also patent bilaterally. Small fat-containing umbilical hernia. Degenerative changes of the spine. Bilateral posterior transpedicular screw and luís fixation of the lumbar spine without evidence of hardware complication. Anterior vertebral body height loss of T12 and L1, deformity at T12 increased from prior. IMPRESSION: 1. Slight interval increase in size of the infrarenal abdominal aortic aneurysm, which now measures 5 x 5.1 cm, previously 4.5 x 4.8 cm. No evidence of rupture. Patent major branch vessels. 2. Interval increase in anterior vertebral body height loss of T12, consistent with worsening compression deformity. Persistent L1 compression deformity, unchanged. 3. Suggestion of hepatic steatosis. 4. Likely scarring from prior infection, trauma, or infarct in the anterior right kidney. 5. Apparent antral wall thickening of the stomach could suggest gastritis. Correlate clinically. Electronically signed by: Brigido Cardenas M.D. 01/05/2017 2:17 PM Dictated Date/Time: 01/05/2017 2:08 PM Laboratory Results 01/05/17 12:30 Red Blood Count 4.10, Mean Corpuscular Volume 86.8, Mean Corpuscular Hemoglobin 26.8, Mean Corpuscular Hemoglobin Concent 30.9, Mean Platelet Volume 9.7, Neutrophils (%) (Auto) 72.8, Lymphocytes (%) (Auto) 14.4, Monocytes (%) (Auto) 9.6, Eosinophils (%) (Auto) 2.4, Basophils (%) (Auto) 0.4, Neutrophils # (Auto) 8.31, Lymphocytes # (Auto) 1.64, Monocytes # (Auto) 1.09, Eosinophils # (Auto) 0.27, Basophils # (Auto) 0.05 01/05/17 12:30 Test 01/05/17 12:30 White Blood Count 11.41 K/uL (4.8-10.8) Red Blood Count 4.10 M/uL (4.2-5.4) Hemoglobin 11.0 g/dL (12.0-16.0) Hematocrit 35.6 % (37-47) Mean Corpuscular Volume 86.8 fL (80-100) Mean Corpuscular Hemoglobin 26.8 pg (25-34) Mean Corpuscular Hemoglobin Concent 30.9 g/dl (32-36) Platelet Count 353 K/uL (130-400) Mean Platelet Volume 9.7 fL (7.4-10.4) Neutrophils (%) (Auto) 72.8 % Lymphocytes (%) (Auto) 14.4 % Monocytes (%) (Auto) 9.6 % Eosinophils (%) (Auto) 2.4 % Basophils (%) (Auto) 0.4 % Neutrophils # (Auto) 8.31 K/uL (1.4-6.5) Lymphocytes # (Auto) 1.64 K/uL (1.2-3.4) Monocytes # (Auto) 1.09 K/uL (0.11-0.59) Eosinophils # (Auto) 0.27 K/uL (0-0.5) Basophils # (Auto) 0.05 K/uL (0-0.2) RDW Standard Deviation 50.6 fL (36.4-46.3) RDW Coefficient of Variation 15.8 % (11.5-14.5) Immature Granulocyte % (Auto) 0.4 % Immature Granulocyte # (Auto) 0.05 K/uL (0.00-0.02) Anion Gap 4.0 mmol/L (3-11) Est Creatinine Clear Calc Drug Dose 42.7 ml/min Estimated GFR () 62.1 Estimated GFR (Non- 53.5 BUN/Creatinine Ratio 16.6 (10-20) Calcium Level 8.8 mg/dl (8.5-10.1) Total Bilirubin 0.4 mg/dl (0.2-1) Direct Bilirubin 0.1 mg/dl (0-0.2) Aspartate Amino Transf (AST/SGOT) 14 U/L (15-37) Alanine Aminotransferase (ALT/SGPT) 16 U/L (12-78) Alkaline Phosphatase 64 U/L (45-117) Troponin I < 0.015 ng/ml (0-0.045) Pro-B-Type Natriuretic Peptide 225 pg/ml (0-1800) Total Protein 7.1 gm/dl (6.4-8.2) Albumin 3.4 gm/dl (3.4-5.0) Lipase 66 U/L (73-393) Laboratory results reviewed by me Medications Administered Medications (Trade) Dose Ordered Sig/Lupe Route Start Time Stop Time Status Last Admin Dose Admin Nitroglycerin (Nitrostat Tab) 0.4 mg Q5M PRN SL 01/05/17 13:00 01/05/17 18:02 DC 01/05/17 12:58 0.4 MG Sodium Chloride 1,000 ml @ 125 mls/hr Q8H STAT IV 01/05/17 12:47 01/05/17 18:02 DC 01/05/17 12:47 125 MLS/HR Famotidine (Pepcid 20mg/100 ml) 20 mg ONE STAT IV 01/05/17 15:17 01/05/17 15:19 DC 01/05/17 15:34 20 MG Al Hydroxide/Mg Hydroxide (Maalox Susp) 30 ml STK-MED ONCE .ROUTE 01/05/17 15:31 01/05/17 15:32 DC 01/05/17 15:35 30 ML Lidocaine HCl (Viscous Lidocaine 2% Soln) 20 ml STK-MED ONCE .ROUTE 01/05/17 15:31 01/05/17 15:32 DC 01/05/17 15:35 20 ML ECG Rate (beats per minute): 58 Rhythm: sinus bradycardia Findings: no acute ischemic change, other (normal axis) ED Course 1233: The patient was evaluated in room B8. A complete history and physical exam was performed. 1247: Ordered NSS 1000 ml @ 125 mls/hr IV. 1300: Ordered Nitrostat Tab 0.4 mg SL PRN. 1517: Ordered GI Cocktail 24 ml PO, Pepcid 20 mg/100 ml 20 mg IV. 1637: I reevaluated the patient and she is resting comfortably. Discussed results and discharge instructions: she verbalized understanding and agreement. The patient is ready for discharge. Medical Decision I reviewed the patient's past medical history, medications, and the nursing notes as described above. Differential diagnoses: ACS, dissection, aneurysm, reflux, gastritis, CHF, pneumonia, bronchitis, musculoskeletal strain, costochondritis. Patient is a 81 y/o woman with a pmhx of COPD on 2L [place] home O2, known AAA, and recent admission for aphasia who presents to ED c/o of back/chest patient that she noticed since waking up this morning per HPI. On arrival the patient is in NAD. AFVSS. On exam patient has mild ttp in the epigastrim. Otherwise, on baseline home O2 and denies any sob from baseline. EKG unchanged. Trop negative in the setting of constant sx. Considering patient's back/chest pain in setting of known AAA, CTA done and showed gastric thickening c/w gastritis but also slight interval increased in size of patient aneurysm. Patient re-evaluated and improved with resolution of pain. I d/w patient that consdering the location of her pain and improvement with pepcid/gi cocktial, sx are most likley 2/2 gastritis. However, considering slight enlargement I would recommend admission for observation. Patient and both clear that she does not want to stay in the hospital as she only recently was discharged home. Considering the patient and appear reliable and the patient's sx most c/w gastritis d/c with close outpatient f/u reasonable. CM assisting and will help to arrange f/u with vascular surgery. Findings, plan for follow-up, and strict return instructions d/w patient. Patient agreeable and d/c'd per discharge instructions. Medication Reconcilliation Current Medication List: was personally reviewed by me Blood Pressure Screening Patient's blood pressure: Elevated blood pressure Blood pressure disposition: Elevated BP felt to be situational Impression Primary Impression: Gastritis Scribe Attestation The scribe's documentation has been prepared under my direction and personally reviewed by me in its entirety. I confirm that the note above accurately reflects all work, treatment, procedures, and medical decision making performed by me. Departure Information Dispostion Home / Self-Care Prescriptions Famotidine (PEPCID) 20 Mg Tab 20 MG PO BID for 14 Days, #28 TAB Prov: Simon Jalloh M.D. 01/05/17 Referrals Emigdio Draper D.O. (PCP) Tripp Echeverria M.D. Patient Instructions Aneurysm Abdominal Aortic, Chest Pain - [facility], ED Gastritis, My [facility] Additional Instructions Please follow up with your primary care physician in the next 1-3 days or reevaluation as well as with vascular surgery, Dr. Echeverria, as will be arranged through our case management. Your CT scan today showed her symptoms are likely due to gastritis however you' re known aortic aneurysm is also slightly larger when compared to May. Otherwise, your exam, lab results, and CT scans did not show signs of an emergent condition at this time. Take Pepcid as directed in addition to your current Protonix. Return to the emergency department for worsening symptoms as described in the accompanying instructions.
[2017-01-05] MEDS ORDERED: SODIUM CHLORIDE 0.9% 1000ML 1,000 ML IV STA (12:47)
[2017-01-05 12:55] VITALS: O2SAT 100
[2017-01-05] MEDS ORDERED: NITROGLYCERIN 0.4 MG SL PER TAB CHARGE SL PRN (13:00)
[2017-01-05 13:03] LABS: BASO % 0.4 %; BASO ABS # 0.05 K/uL (0-0.2); COMPLETE YES; EOS % 2.4 %; HEMATOCRIT 35.6 % (37-47); IG% 0.4 %; LYMPH % 14.4 %; LYMPH ABS # 1.64 K/uL (1.2-3.4); MEAN CELL VOLUME 86.8 fL (80-100); MEAN CORPUSCULAR HEMOGLOBIN 26.8 pg (25-34); MEAN CORPUSCULAR HGB CONC 30.9 g/dl (32-36); MEAN PLATELET VOLUME 9.7 fL (7.4-10.4); MONO % 9.6 %; NEUT % 72.8 %; PLATELET COUNT 353 K/uL (130-400); WHITE BLOOD COUNT 11.41 K/uL (4.8-10.8)
--- NOTE | 2017-01-05 13:16 | DIAGNOSTIC IMAGING REPORT ---
CHEST ONE VIEW PORTABLE CLINICAL HISTORY: Chest pain. COMPARISON STUDY: Chest radiograph January 02, 2017. FINDINGS: Intracanalicular electrodes are noted. Cardiomediastinal silhouette is normal. Severe emphysema is noted. There are old right rib fractures. No pneumothorax or pleural effusion is present. Linear bibasilar opacities favor atelectasis. There is no consolidation to suggest pneumonia. IMPRESSION: 1. No acute findings. 2. Severe emphysema. Electronically signed by: Sacha Edward M.D. 01/05/2017 1:15 PM Dictated Date/Time: 01/05/2017 1:13 PM
[2017-01-05 13:23] LABS: ALT/SGPT 16 U/L (12-78); AST/SGOT 14 U/L (15-37); BLOOD UREA NITROGEN 17 mg/dl (7-18); BUN/CREATININE RATIO 16.6 (10-20); CALCIUM 8.8 mg/dl (8.5-10.1); CARBON DIOXIDE 32 mmol/L (21-32); CHLORIDE 103 mmol/L (98-107); GLUCOSE 107 mg/dl (70-99); POTASSIUM 4.5 mmol/L (3.5-5.1); SODIUM 139 mmol/L (136-145)
[2017-01-05 13:28] LABS: ALKALINE PHOSPHATASE 64 U/L (45-117)
[2017-01-05] MEDS ORDERED: OPTIRAY 320 IV PRN (13:30)
--- NOTE | 2017-01-05 14:17 | DIAGNOSTIC IMAGING REPORT ---
CHEST CTA for AORTIC DISSECTION CT DOSE: HISTORY: Back pain. Assess for aortic dissection. TECHNIQUE: Multiaxial CT images of the chest were performed both before and after the intravenous administration of contrast to evaluate the aorta. Maximal intensity projection images were also obtained. A dose lowering technique was utilized adhering to the principles of ALARA. COMPARISON STUDY: Chest abdomen and pelvis CTA 05/15/2016. FINDINGS: Noncontrast imaging through the chest shows no evidence for an intramural hematoma within the thoracic aorta. Mild narrowing within the proximal left subclavian artery due to the atherosclerotic plaque. Moderate calcified and noncalcified atherosclerotic plaque within the aortic arch and descending thoracic aorta, unchanged. Normal caliber thoracic aorta with no evidence for dissection. The heart is normal in size. No pleural or pericardial effusions. The central pulmonary arteries are patent. No mediastinal or hilar lymphadenopathy. Spinal stimulator leads are identified and terminates within the mid thoracic region. Old, healed bilateral rib fractures. The central airways are patent. No pneumothorax. Moderate to severe emphysema. Suspect a prior left mastectomy. Bibasilar densities favor atelectasis/dependent change. IMPRESSION: 1. No evidence for an aortic dissection. 2. Emphysema. 3. Bibasilar densities favor atelectasis/dependent change. 4. Additional findings as described above. Electronically signed by: Daniel Cummings M.D. 01/05/2017 2:15 PM Dictated Date/Time: 01/05/2017 2:08 PM
--- NOTE | 2017-01-05 14:19 | DIAGNOSTIC IMAGING REPORT ---
ANGIO ABD/PELVIS WITH CONTRAST CLINICAL HISTORY: 81 years-old Female presenting with BACK-CHEST PAIN / KNOWN AAA. TECHNIQUE: Multidetector CT angiography of the abdomen and pelvis was performed after the administration of intravenous contrast. 3-D volumetric and/or maximum intensity projection (MIP) images were subsequently reconstructed for review. IV contrast: 94 mL of Optiray 320. A dose lowering technique was used consistent with the principles of ALARA (as low as reasonably achievable). COMPARISON: 05/15/2016. CT DOSE (mGy.cm): The estimated cumulative dose is 725.45 mGy.cm. FINDINGS: Dbas topogram: Posterior lumbar fusion hardware and spinal stimulator noted. Dependent opacities likely atelectasis. Normal heart size. No pericardial or pleural effusion. Suggestion of hepatic steatosis. No biliary ductal dilatation. Gallbladder normal. Pancreas, spleen, and adrenal glands are normal. Right kidney demonstrates focal cortical defect in the anterior aspect of the interpolar region, possibly indicating scarring from prior infection, trauma, or infarct. No hydronephrosis. Ureters normal. Bladder under distended. Normal CT appearance of the ovaries and uterus. Moderate stool burden throughout the normal caliber colon. No bowel obstruction. Normal appendix. Mild apparent antral wall thickening of the stomach, nonspecific. No free fluid or gas. No lymphadenopathy. Significant calcified and noncalcified atherosclerotic plaque of the mildly dilated and tortuous abdominal aorta. Redemonstration of the infrarenal abdominal aortic aneurysm, which now measures up to 5 x 5.1 cm in maximal transverse dimension, previously 4.5 x 4.8 cm. Significance noncalcified mural thrombus. The aneurysm sac extends from immediately distal to the patent single right main renal artery to the level of the aortic bifurcation. Iliac, superior mesenteric, and bilateral single main renal arteries patent at their origins and distally. No periaortic fat stranding to suggest rupture. Atherosclerosis of the bilateral iliac vessels, which are nonstenotic. Proximal superficial femoral and deep femoral vessels also patent bilaterally. Small fat-containing umbilical hernia. Degenerative changes of the spine. Bilateral posterior transpedicular screw and luís fixation of the lumbar spine without evidence of hardware complication. Anterior vertebral body height loss of T12 and L1, deformity at T12 increased from prior. IMPRESSION: 1. Slight interval increase in size of the infrarenal abdominal aortic aneurysm, which now measures 5 x 5.1 cm, previously 4.5 x 4.8 cm. No evidence of rupture. Patent major branch vessels. 2. Interval increase in anterior vertebral body height loss of T12, consistent with worsening compression deformity. Persistent L1 compression deformity, unchanged. 3. Suggestion of hepatic steatosis. 4. Likely scarring from prior infection, trauma, or infarct in the anterior right kidney. 5. Apparent antral wall thickening of the stomach could suggest gastritis. Correlate clinically. Electronically signed by: Brigido Cardenas M.D. 01/05/2017 2:17 PM Dictated Date/Time: 01/05/2017 2:08 PM
[2017-01-05] MEDS ORDERED: GI COCKTAIL PO STA (15:17)
[2017-01-05] MEDS ORDERED: FAMOTIDINE 20MG/102 ML D5W IV STA (15:17)
[2017-01-05] MEDS ORDERED: ALUMINUM/MAGNESIUM SUSP 30 ML UDC ONE (15:31)
[2017-01-05] MEDS ORDERED: LIDOCAINE HCL 2% VISC SOLN 20 ML UDC ONE (15:31)
[2017-01-05] MEDS ORDERED: FAMO20TA9 PO (17:12)
[2017-01-05 17:26] VITALS: BP 155/67; PULSE 66; O2SAT 100
[2017-01-05] MEDS ORDERED: ALBU18002 INH (18:02)
[2017-01-05] MEDS ORDERED: FOLI1TAB7 PO (18:19)
[2017-01-05] MEDS ORDERED: CLC100X PO (18:19)
[2017-01-05] MEDS ORDERED: BSP/10 PO (18:19)
[2017-01-05] MEDS ORDERED: ERGO500037 PO (18:25)
[2017-01-05] MEDS ORDERED: PRT/20 PO (18:25)
[2017-01-05] MEDS ORDERED: SIMV-151 PO (20:40)
[2017-01-05] MEDS ORDERED: CZR25 PO (20:40)
[2017-01-05] MEDS ORDERED: CYM60 PO (20:41)
[2017-01-27] MEDS ORDERED: FRRS300 PO (15:48)
[2017-01-27] MEDS ORDERED: VTMB12 PO (15:48)
[2017-01-27] MEDS ORDERED: ERTA1INJ IV (15:49)
[2017-01-28] MEDS ORDERED: IPRASOL4 INH (11:09)
== END 2017-01-05 17:27 | disposition home or self-care (01) ==
LOC: EDBD 12:11 → C.EDB 12:13
DX: K29.70 Gastritis, unspecified, without bleeding (principal); I71.4 Abdominal aortic aneurysm, without rupture; J44.9 Chronic obstructive pulmonary disease, unspecified; E78.5 Hyperlipidemia, unspecified; I11.0 Hypertensive heart disease with heart failure; M96.1 Postlaminectomy syndrome, not elsewhere classified; I47.1 Supraventricular tachycardia; Z87.891 Personal history of nicotine dependence; Z79.82 Long term (current) use of aspirin; Z79.52 Long term (current) use of systemic steroids; Z79.899 Other long term (current) drug therapy

== ENCOUNTER → 2017-01-17 | Outpatient (CLI) | payer OTHER, MEDICARE ==
[~2017-01-17] MED LIST changes: +ALBU18002 INH; +BSP/10 PO; +CHOL1CAP57 PO; +CITA10TA4 PO; +CLC100X PO; +CYM60 PO; +CZR25 PO; +DONE1TAB11 PO; +ERGO500037 PO; +ERTA1INJ IV; +FAMO20TA9 PO; +FOLI1TAB7 PO; +FRRS300 PO; +IPRASOL4 INH; +ONDA4TAB10 SL; +OPTIRAY 320 IV PRN; +PRT/20 PO; +SIMV-151 PO; +VTMB12 PO
--- NOTE | 2017-01-17 14:00 | DIAGNOSTIC IMAGING REPORT ---
CT ANGIOGRAM OF THE ABDOMEN AND PELVIS HISTORY: Follow-up of abdominal aortic aneurysm. TECHNIQUE: Multiaxial CT images of the abdomen and pelvis were performed both before and after the intravenous administration of contrast to evaluate the aorta. Maximal intensity projection images were also obtained. COMPARISON STUDY: Abdomen and pelvis CTA 01/05/2017. FINDINGS: Moderate superior endplate compression deformities at T12 and L1 are again noted. There is posterior decompression fusion from L2 through L5. Right posterior subcutaneous stimulator pack with associated spinal electrodes. The tip of the electrodes are nonocclusive on this study. Moderately advanced atherosclerotic plaque within the abdominal aorta. No significant change in size in the 5.2 x 5.0 cm infrarenal abdominal aortic aneurysm. There is a large amount of mural thrombus within the aneurysm. The contrast opacified lumen measures 2.7 x 2.4 cm. Bilateral iliac arteries are normal in caliber. No significant stenosis. The aneurysm measures approximately 6.9 cm in length. The aneurysm originates 2 cm inferior to the takeoff of the right renal artery. Emphysema at the lung bases. No hepatic or splenic masses. The adrenal glands, pancreas, and gallbladder are unremarkable. No hydronephrosis. Bilateral cortical renal scarring is again noted. No retroperitoneal lymphadenopathy. Bladder is not well-distended. The uterus and bilateral adnexa are unremarkable. No bowel wall thickening or obstruction. IMPRESSION: 1. No significant change in the 5.2 x 5.0 cm infrarenal abdominal aortic aneurysm. 2. Additional stable findings as described above. Electronically signed by: Daniel Cummings M.D. 01/17/2017 1:59 PM Dictated Date/Time: 01/17/2017 1:46 PM
== END | disposition home or self-care (01) ==
LOC: C.CTS 13:13
PROVIDERS: ATTEND Physician Assistant
DX: I71.4 Abdominal aortic aneurysm, without rupture (principal)

== ENCOUNTER 2017-01-25 18:33 | Observation (INO) | payer OTHER, MEDICARE ==
[~2017-01-25] VITALS: Ht 165.1 cm; Wt 67.4 kg
[~2017-01-25 18:33] MED LIST changes: -ERTA1INJ IV; -FAMO20TA9 PO; -FRRS300 PO; -IPRASOL4 INH; -OPTIRAY 320 IV PRN; -VTMB12 PO
--- NOTE | 2017-01-25 18:46 | EMERGENCY ROOM VISIT NOTE ---
History Report prepared by Kaitlin: Kike Smith Under the Supervision of: Dr. Maddi Light D.O. First contact with patient: 18:34 Stated Complaint: STROKE ALERT History of Present Illness The patient is a 82 year old female who presents to the Emergency Room with complaints of difficulty speaking that has now resolved. The patient was last known well at 1600 today, around 2 and a half hours ago. At this time, she noticed her speech was "funny." She was not doing anything out of the ordinary. This has happened to her in the past and was diagnosed with a mini stroke. She denies any headache, chest pain, shortness of breath, abdominal pain, tingling, or weakness. She is currently being treated for a UTI. She is supposed to be taking Aspirin, but she says she is not. Source of History: patient Onset: two and a half hours ago Position: other (Global) Symptom Intensity: moderate Quality: other (Difficulty speaking) Timing: resolved Associated Symptoms: + urinary symptoms, No headache, No chest pain, No SOB , No abdominal pain, No weakness Review of Systems See HPI for pertinent positives & negatives. A total of 10 systems reviewed and were otherwise negative. 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 (10) SVT (supraventricular tachycardia) Social History Problems: (1) Tobacco Use Disorder Family History No significant family history Social History Smoking Status: Former Smoker Alcohol Use: heavy Drug Use: none Marital Status: Housing Status: lives with significant other Occupation Status: retired Current/Historical Medications Scheduled Aripiprazole (Abilify), 5 MG PO QAM Aspirin (Aspirin Ec), 81 MG PO DAILY Budesonide (Inhalation) (Pulmicort), 0.5 MG PO BID Buspirone HCl (Buspirone HCl), 10 MG PO DAILY Citalopram Hydrobromide (Citalopram Hydrobromide), 10 MG PO DAILY Donepezil Hydrochloride (Donepezil Hcl), 5 MG PO DAILY Duloxetine HCl (Duloxetine HCl), 60 MG PO DAILY Ergocalciferol (Vitamin D 38109 Unit), 50,000 UNIT PO WK Fluticasone Propionate (Nasal) (Flonase Allergy Relief), 1 SPRAY LUCIA BID Folic Acid (Folvite), 1 MG PO DAILY Home O2 Therapy (Oxygen), 3 LITERS NA HS Ipratropium [place] (Nasal) (Ipratropium [place]), 1 UNIT INH Q4 Losartan Potassium (Losartan Potassium), 25 MG PO DAILY Metoprolol Succ (Toprol Xl) (Toprol-Xl), 50 MG PO DAILY Ondasetron Odt (Zofran Odt), 4 MG SL TID Pantoprazole (Protonix), 40 MG PO BID Prednisone Tab (Prednisone), 10 MG PO DAILY Sertraline (Zoloft), 50 MG PO DAILY Simvastatin (Simvastatin), 20 MG PO QPM Tiotropium [place] (Spiriva Handihaler), 2 CAP INH DAILY Scheduled PRN Albuterol Sulf (Proventil 0.083% 2.5MG/3ML), 2.5 MG INH QID PRN for SOB/Wheezing Albuterol Sulfate (Proair Respiclick), 2 PUFFS INH Q4 PRN for SOB/Wheezing Miscellaneous Medications Cholecalciferol (Vitamin D3), Unknown Dose Allergies Coded Allergies: Latex2 -Systemic Allergic Response (Verified Allergy, Unknown, HIVES, ITCHING SWELLING,, 01/25/17) Lisinopril (Verified Adverse Reaction, Mild, cough, 01/25/17) Physical Exam Vital Signs Date Time Temp Pulse Resp B/P (MAP) Pulse Ox O2 Delivery O2 Flow Rate FiO2 01/25/17 19:40 152/47 01/25/17 19:38 68 18 100 01/25/17 19:08 73 20 100 01/25/17 19:03 72 01/25/17 19:03 74 15 100 Nasal Cannula 2.0 01/25/17 18:41 37.1 90 18 130/73 96 Room Air 01/25/17 18:36 130/73 Physical Exam GENERAL: alert, well appearing, well nourished, no distress, non-toxic EYE EXAM: normal conjunctiva, PERRL and EOM's grossly intact OROPHARYNX: no exudate, no erythema, lips, buccal mucosa, and tongue normal and mucous membranes are moist NECK: supple, no nuchal rigidity, no adenopathy, non-tender LUNGS: Clear to auscultation. Normal chest wall mechanics HEART: no murmurs, S1 normal and S2 normal ABDOMEN: abdomen soft, non-tender, normo-active bowel sounds, no masses, no rebound or guarding. BACK: Back is symmetrical on inspection and there is no deformity, no midline tenderness, no CVA tenderness. SKIN: no rashes and no bruising UPPER EXTREMITIES: upper extremities are grossly normal. LOWER EXTREMITIES: No pitting edema. NEURO EXAM: Normal sensorium, cranial nerves II-XII intact, normal speech, no weakness of arms, no weakness of legs. No drift. Finger to nose intact. Gross sensation intact. NIH stroke score is 0. Medical Decision & Procedures ER Provider Diagnostic Interpretation: Radiology results have been interpreted by the radiologist and reviewed by me. HEAD WITHOUT CONTRAST (CT) CT DOSE: 537.48 mGy.cm HISTORY: Mental status change A 1 TECHNIQUE: Multiaxial CT images of the head were performed without the use of intravenous contrast. A dose lowering technique was utilized adhering to the principles of ALARA. Comparison: None. Findings: The paranasal sinuses and mastoid air cells are clear. Moderate atrophy and chronic small vessel change of aging. No acute intracranial hemorrhage. No midline shift. Impression: Age-related and chronic small vessel change. No acute intracranial abnormality. The above report was generated using voice recognition software. It may contain grammatical, syntax or spelling errors. Electronically signed by: Paul Whaley M.D. 01/25/2017 6:47 PM Dictated Date/Time: 01/25/2017 6:46 PM CHEST ONE VIEW PORTABLE CLINICAL HISTORY: stroke COMPARISON STUDY: 01/05/2017 FINDINGS: The heart is normal in size. There is radiographic evidence of emphysema. There is no lobar consolidation. A 12 mm nodular opacity at left lung base, likely represents a summation or focal atelectasis as no pulmonary mass was visualized in this location on[ a CT scan of the chest performed December 2016. There is no failure. There are no pleural effusions. Spinal catheters/electrodes are visualized. IMPRESSION: 1. Pulmonary emphysema 2. Basilar opacities likely atelectatic Electronically signed by: Jason Yap M.D. 01/25/2017 7:11 PM Dictated Date/Time: 01/25/2017 7:08 PM Laboratory Results Test 01/25/17 18:50 01/25/17 18:51 Bedside Hemoglobin 9.9 g/dl (12.0-16.0) Bedside Hematocrit 29 % (37-47) Bedside Sodium 141 mEq/L (135-144) Bedside Potassium 4.0 mEq/L (3.3-5.0) Bedside Chloride 101 mEq/L (101-112) Bedside Total CO2 31 mEq/l (24-31) Bedside Blood Urea Nitrogen 22 mg/dl (7-18) Bedside Creatinine 1.2 mg/dl (0.6-1.3) Bedside Glucose (other) 129 mg/dl (70-99) Estimated Average Glucose 126 mg/dl Hemoglobin A1c 6.0 % (4.5-5.6) Bedside Ionized Calcium (Yehuda) 1.16 mmol/l (1.12-1.32) Magnesium Level 2.1 mg/dl (1.8-2.4) Total Bilirubin 0.2 mg/dl (0.2-1) Aspartate Amino Transf (AST/SGOT) 15 U/L (15-37) Alanine Aminotransferase (ALT/SGPT) 16 U/L (12-78) Alkaline Phosphatase 91 U/L (45-117) Troponin I < 0.015 ng/ml (0-0.045) Total Protein 6.8 gm/dl (6.4-8.2) Albumin 3.2 gm/dl (3.4-5.0) Globulin 3.6 gm/dl (2.5-4.0) Albumin/Globulin Ratio 0.9 (0.9-2) Thyroid Stimulating Hormone (TSH) 2.370 uIu/ml (0.300-4.500) Bedside Prothrombin Time INR 1.0 (0.9-1.1) Bedside Glucose 133 mg/dl (70-90) Laboratory results per my review. Medications Administered Medications (Trade) Dose Ordered Sig/Lupe Route Start Time Stop Time Status Last Admin Dose Admin Aspirin/Aluminum/ Magnesium/Ca Carb (Ascriptin Tab) 325 mg NOW STAT PO 01/25/17 19:08 01/25/17 19:09 DC 01/25/17 19:21 325 MG ECG Indication: other (Stroke symptoms) Rate (beats per minute): 87 Rhythm: sinus rhythm Findings: no acute ischemic change, no ectopy, other (Normal axis, normal intervals) ED Course 1833: The patient was evaluated in room A1. A complete history and physical exam was performed. 1907: Ordered Ascriptin Tab 325 mg PO 1899: I spoke with Dr. Loco of [place] at this time. We discussed the patient's case. He would like the patient to be evaluated as an inpatient to be monitored and treated further. 1913: I updated the patient at this time. She is not having any current symptoms. Her family is at bedside. 1919: Upon reevaluation, the patient is resting. I discussed the findings and the treatment plan with the patient. She expresses agreement and understanding. I spoke with Dr. Fernando of the [facility] Hospitalist Service. She will be evaluated by him for further management. Medical Decision Differential diagnosis: Etiologies such as metabolic, infection, hypo/hyperglycemia, electrolyte abnormalities, cardiac sources, intracerebral event, toxicologic, neurologic, as well as others were entertained. Patient with history of presentation consistent with TIA symptoms resolved. Patient not a TPA candidate. Case discussed with teleneurologist at [place]. Patient admitted for additional evaluation. Patient denies currently taking any anticoagulation or antiplatelet therapy. Doubt infectious etiology, electrolyte abnormality, or seizure. Medication Reconcilliation Current Medication List: was personally reviewed by me Blood Pressure Screening Patient's blood pressure: Normal blood pressure Blood pressure disposition: Did not require urgent referral Consults Time Called: 1854 Consulting Physician: Dr. Loco - [place] Returned Call: 1899 We discussed the patient's case. He would like the patient to be treated as an inpatient to be monitored and treated further. Additional Consults: Time Called: 1914 Consulted Physician: Dr. Fernando - [facility] Returned Call: 1919 Additional Comments: I reviewed the patient's case with him. He will evaluate the patient for further management. Impression Primary Impression: TIA (transient ischemic attack) Scribe Attestation The scribe's documentation has been prepared under my direction and personally reviewed by me in its entirety. I confirm that the note above accurately reflects all work, treatment, procedures, and medical decision making performed by me. Departure Information Dispostion Being Evaluated By Hospitalist Referrals Emigdio Draper D.O. (PCP) Stroke History Time Last Known Well 1600 Stroke t-PA Criteria Reviewed Does NOT meet criteria for t-PA Reason t-PA Not Given Treatment not indicated (NIHSS 0 and symptoms resolved.) Problem Qualifiers Primary Impression: TIA (transient ischemic attack) Transient cerebral ischemia type: unspecified Qualified Codes: G45.9 - Transient cerebral ischemic attack, unspecified
--- NOTE | 2017-01-25 18:49 | DIAGNOSTIC IMAGING REPORT ---
HEAD WITHOUT CONTRAST (CT) CT DOSE: 537.48 mGy.cm HISTORY: Mental status change A 1 TECHNIQUE: Multiaxial CT images of the head were performed without the use of intravenous contrast. A dose lowering technique was utilized adhering to the principles of ALARA. Comparison: None. Findings: The paranasal sinuses and mastoid air cells are clear. Moderate atrophy and chronic small vessel change of aging. No acute intracranial hemorrhage. No midline shift. Impression: Age-related and chronic small vessel change. No acute intracranial abnormality. The above report was generated using voice recognition software. It may contain grammatical, syntax or spelling errors. Electronically signed by: Paul Whaley M.D. 01/25/2017 6:47 PM Dictated Date/Time: 01/25/2017 6:46 PM
[2017-01-25 19:03] LABS: ISTAT CREATININE 1.2 mg/dl (0.6-1.3); ISTAT HEMOGLOBIN 9.9 g/dl (12.0-16.0); ISTAT IONIZED CALCIUM 1.16 mmol/l (1.12-1.32)
[2017-01-25 19:04] LABS: BASO % 0.4 %; BASO ABS # 0.03 K/uL (0-0.2); COMPLETE YES; HEMATOCRIT 32.1 % (37-47); IG% 0.1 %; LYMPH % 20.3 %; LYMPH ABS # 1.58 K/uL (1.2-3.4); MEAN CELL VOLUME 87.7 fL (80-100); MEAN CORPUSCULAR HEMOGLOBIN 26.2 pg (25-34); MEAN CORPUSCULAR HGB CONC 29.9 g/dl (32-36); MEAN PLATELET VOLUME 9.5 fL (7.4-10.4); MONO % 15.5 %; NEUT % 59.7 %; PLATELET COUNT 262 K/uL (130-400); RED BLOOD COUNT 3.66 M/uL (4.2-5.4); WHITE BLOOD COUNT 7.79 K/uL (4.8-10.8)
[2017-01-25] MEDS ORDERED: ASPIRIN/ALUM/MAGNES/CAL CARB 325 MG TAB PO STA (19:08)
--- NOTE | 2017-01-25 19:12 | DIAGNOSTIC IMAGING REPORT ---
CHEST ONE VIEW PORTABLE CLINICAL HISTORY: stroke COMPARISON STUDY: 01/05/2017 FINDINGS: The heart is normal in size. There is radiographic evidence of emphysema. There is no lobar consolidation. A 12 mm nodular opacity at left lung base, likely represents a summation or focal atelectasis as no pulmonary mass was visualized in this location on[ a CT scan of the chest performed December 2016. There is no failure. There are no pleural effusions. Spinal catheters/electrodes are visualized. IMPRESSION: 1. Pulmonary emphysema 2. Basilar opacities likely atelectatic Electronically signed by: Jason Yap M.D. 01/25/2017 7:11 PM Dictated Date/Time: 01/25/2017 7:08 PM
[2017-01-25 19:27] LABS: ALT/SGPT 16 U/L (12-78); AST/SGOT 15 U/L (15-37); BLOOD UREA NITROGEN 18 mg/dl (7-18); BUN/CREATININE RATIO 15.9 (10-20); CALCIUM 8.9 mg/dl (8.5-10.1); CARBON DIOXIDE 31 mmol/L (21-32); CHLORIDE 105 mmol/L (98-107); GLUCOSE 131 mg/dl (70-99); MAGNESIUM 2.1 mg/dl (1.8-2.4); SODIUM 140 mmol/L (136-145)
[2017-01-25] MEDS ORDERED: ALBUTEROL 0.083% NEBU SOLN 3 ML VIAL INH PRN ×2 (19:30)
[2017-01-25] MEDS ORDERED: PHARMACIST DISCHARGE MED REC CONSULT PRN (19:30)
[2017-01-25 19:37] LABS: ALB/GLOB RATIO 0.9 (0.9-2); ALKALINE PHOSPHATASE 91 U/L (45-117)
[2017-01-25] MEDS ORDERED: POLYETHYLENE (MIRALAX) 17 GM PACK PO PRN (19:45)
[2017-01-25] MEDS ORDERED: ALUMINUM/MAGNESIUM/SIMETH (MAALOX MAX) 30 ML UDC PO PRN (19:45)
[2017-01-25] MEDS ORDERED: ONDANSETRON INJ 2 MG/ML 2 ML VIAL IV PRN (19:45)
[2017-01-25] MEDS ORDERED: ACETAMINOPHEN 325 MG TAB PO PRN (19:45)
[2017-01-25] MEDS ORDERED: MoRPHine SULFATE 2 MG/ML CARP IV PRN (19:45)
[2017-01-25] MEDS ORDERED: MAGNESIUM HYDROXIDE SUSP 30 ML UDC PO PRN (19:45)
--- NOTE | 2017-01-25 20:00 | History and Physical ---
History & Physical Date & Time of Service: Jan 25, 2017 at 19:39 Chief Complaint: Stroke Alert Primary Care Physician: Emigdio Draper D.O. History of Present Illness Source: patient 82 y/o F Hx COPD, diastolic CHF, SVT, AAA, HTN, HPL, lumbar stenosis with implanted stimulator. Pt was admitted 01/02 with acute expressive aphasia which resolved without treatment. She underwent a complete CVA workup which was negative although she does have moderate L carotid stenosis. The pt again developed acute aphasia today. Her symptoms have resolved on arrival to the ER. She denies additional acute symptoms such as SOB, CP, N/V, dysuria. She was recently treated for a UTI. Apparently the pt was D/Cd with ASA and a Statin after her previous TIA. She has not complied with either. Past Medical/Surgical History 1) COPD 2) Diastolic CHF - grade 1 diastolic dysfunction on recent echo 3) SVT 4) AAA 5) HTN 6) HPL 7) Lumbar stenosis with implanted stimulator. Chronic gait dysfunction - needs assistance walking 8) TIA - acute aphasia 01/02, 01/25 9) L carotid stenosis - 60-70% Surgical: Implanted stimulator L3-4,4-5 fusion Spinal stimulator Family History No significant family history Social History Smoking Status: Former Smoker Drug Use: none Marital Status: Housing status: lives with family Occupational Status: retired Immunizations History of Influenza Vaccine: N/A History of Tetanus Vaccine?: Yes Tetanus Immunization Date: May 14, 2005 History of Pneumococcal: Yes Pneumococcal Date: May 14, 2005 History of Hepatitis B Vaccine: No Multi-Drug Resistant Organisms History of MDRO: No Allergies Coded Allergies: Latex2 -Systemic Allergic Response (Verified Allergy, Unknown, HIVES, ITCHING SWELLING,, 01/25/17) Lisinopril (Verified Adverse Reaction, Mild, cough, 01/25/17) Home Medications Scheduled Aripiprazole (Abilify), 5 MG PO QAM Aspirin (Aspirin Ec), 81 MG PO DAILY Budesonide (Inhalation) (Pulmicort), 0.5 MG PO BID Buspirone HCl (Buspirone HCl), 10 MG PO DAILY Citalopram Hydrobromide (Citalopram Hydrobromide), 10 MG PO DAILY Donepezil Hydrochloride (Donepezil Hcl), 5 MG PO DAILY Duloxetine HCl (Duloxetine HCl), 60 MG PO DAILY Ergocalciferol (Vitamin D 05008 Unit), 50,000 UNIT PO WK Fluticasone Propionate (Nasal) (Flonase Allergy Relief), 1 SPRAY LUCIA BID Folic Acid (Folvite), 1 MG PO DAILY Home O2 Therapy (Oxygen), 3 LITERS NA HS Ipratropium [place] (Nasal) (Ipratropium [place]), 1 UNIT INH Q4 Losartan Potassium (Losartan Potassium), 25 MG PO DAILY Metoprolol Succ (Toprol Xl) (Toprol-Xl), 50 MG PO DAILY Ondasetron Odt (Zofran Odt), 4 MG SL TID Pantoprazole (Protonix), 40 MG PO BID Prednisone Tab (Prednisone), 10 MG PO DAILY Sertraline (Zoloft), 50 MG PO DAILY Simvastatin (Simvastatin), 20 MG PO QPM Tiotropium [place] (Spiriva Handihaler), 2 CAP INH DAILY Scheduled PRN Albuterol Sulf (Proventil 0.083% 2.5MG/3ML), 2.5 MG INH QID PRN for SOB/Wheezing Albuterol Sulfate (Proair Respiclick), 2 PUFFS INH Q4 PRN for SOB/Wheezing Miscellaneous Medications Cholecalciferol (Vitamin D3), Unknown Dose Review of Systems Pt is not a reliable historian and requested to be discharged several times Constitutional: No fever, No chills, No sweats Eyes: No worsening of vision ENT: No hearing loss Respiratory: No cough, No sputum, No wheezing Cardiovascular: No chest pain, No orthopnea, No PND Abdomen: No pain, No vomiting Musculoskeletal: No joint pain Genitourinary - Female: No dysuria, No urinary frequency, No urinary urgency Neurologic: + problem reported (Acute aphasia - chronic lower ext weakness due to spinal stenosis ), No memory loss, No paralysis, No weakness Psychiatric: No depression symptoms Endocrine: No fatigue Hematologic / Lymphatic: No abnormal bleeding/bruising Integumentary: No rash Allergic / Immunologic: No environmental allergies Physical Exam Vital Signs Date Time Temp Pulse Resp B/P (MAP) Pulse Ox O2 Delivery O2 Flow Rate FiO2 01/25/17 19:03 72 01/25/17 19:03 74 15 100 Nasal Cannula 2.0 01/25/17 18:41 37.1 90 18 130/73 96 Room Air 9/14/17 18:36 130/73 General Appearance: WD/WN, no apparent distress Head: normocephalic Eyes: normal inspection ENT: normal ENT inspection, pharynx normal Neck: supple, no JVD Respiratory/Chest: + pertinent finding (Poor b/l air movement - no wheezing or crackles) Cardiovascular: regular rate, rhythm, no edema, no gallop, no JVD, no murmur, normal peripheral pulses Abdomen/GI: normal bowel sounds, non tender, soft Back: normal inspection, no CVA tenderness, no muscle spasm, normal range of motion Extremities/Musculoskelatal: no calf tenderness, normal capillary refill, no pedal edema, + pertinent finding (B/L LE weakness - LE muscle wasting is apparent) 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, no motor/sensory deficits, alert, normal mood/affect, normal reflexes, + pertinent finding (AAO x 2 - speech is clear and cohesive - there is no facial asymmetry, no strength or sensory deficits in the upper extrems - lower ext weakness is equal and chronic - pt requires assistance for ambulation.) Skin: normal color, warm/dry Diagnostics Laboratory Results Results Past 24 Hours Test 01/25/17 18:43 01/25/17 18:50 01/25/17 18:51 01/25/17 19:24 Range/Units White Blood Count 7.79 4.8-10.8 K/uL Red Blood Count 3.66 4.2-5.4 M/uL Hemoglobin 9.6 12.0-16.0 g/dL Hematocrit 32.1 37-47 % Mean Corpuscular Volume 87.7 80-100 fL Mean Corpuscular Hemoglobin 26.2 25-34 pg Mean Corpuscular Hemoglobin Concent 29.9 32-36 g/dl Platelet Count 262 130-400 K/uL Mean Platelet Volume 9.5 7.4-10.4 fL Neutrophils (%) (Auto) 59.7 % Lymphocytes (%) (Auto) 20.3 % Monocytes (%) (Auto) 15.5 % Eosinophils (%) (Auto) 4.0 % Basophils (%) (Auto) 0.4 % Neutrophils # (Auto) 4.65 1.4-6.5 K/uL Lymphocytes # (Auto) 1.58 1.2-3.4 K/uL Monocytes # (Auto) 1.21 0.11-0.59 K/uL Eosinophils # (Auto) 0.31 0-0.5 K/uL Basophils # (Auto) 0.03 0-0.2 K/uL Bedside Hemoglobin 9.9 12.0-16.0 g/dl Bedside Hematocrit 29 37-47 % RDW Standard Deviation 51.3 36.4-46.3 fL RDW Coefficient of Variation 15.9 11.5-14.5 % Immature Granulocyte % (Auto) 0.1 % Immature Granulocyte # (Auto) 0.01 0.00-0.02 K/uL Bedside Sodium 141 135-144 mEq/L Sodium Level 140 136-145 mmol/L Bedside Potassium 4.0 3.3-5.0 mEq/L Potassium Level 4.0 3.5-5.1 mmol/L Bedside Chloride 101 101-112 mEq/L Chloride Level 105 98-107 mmol/L Carbon Dioxide Level 31 21-32 mmol/L Bedside Total CO2 31 24-31 mEq/l Anion Gap 14.0 16-25 mmol/L Bedside Blood Urea Nitrogen 22 7-18 mg/dl Blood Urea Nitrogen 18 7-18 mg/dl Creatinine 1.10 0.60-1.20 mg/dl Bedside Creatinine 1.2 0.6-1.3 mg/dl Estimated GFR () 54.9 Estimated GFR (Non- 47.4 BUN/Creatinine Ratio 15.9 10-20 Bedside Glucose (other) 129 70-99 mg/dl Random Glucose 131 70-99 mg/dl Calcium Level 8.9 8.5-10.1 mg/dl Bedside Ionized Calcium (Yehuda) 1.16 1.12-1.32 mmol/l Magnesium Level 2.1 1.8-2.4 mg/dl Total Bilirubin 0.2 0.2-1 mg/dl Aspartate Amino Transf (AST/SGOT) 15 15-37 U/L Alanine Aminotransferase (ALT/SGPT) 16 12-78 U/L Alkaline Phosphatase 91 45-117 U/L Troponin I < 0.015 0-0.045 ng/ml Total Protein 6.8 6.4-8.2 gm/dl Albumin 3.2 3.4-5.0 gm/dl Globulin 3.6 2.5-4.0 gm/dl Albumin/Globulin Ratio 0.9 0.9-2 Thyroid Stimulating Hormone (TSH) 2.370 0.300-4.500 uIu/ml Bedside Prothrombin Time INR 1.0 0.9-1.1 Bedside Glucose 133 70-90 mg/dl Diagnostic Radiology CT head: Age-related and chronic small vessel change. No acute intracranial abnormality. Normal EKG Impression Assessment and Plan 82 y/o F Hx COPD, diastolic CHF, SVT, AAA, HTN, HPL, lumbar stenosis with implanted stimulator. Pt was admitted 01/02 with acute expressive aphasia which resolved without treatment. She underwent a complete CVA workup which was negative although she does have moderate L carotid stenosis. The pt again developed acute aphasia today. Her symptoms have resolved on arrival to the ER. She denies additional acute symptoms such as SOB, CP, N/V, dysuria. She was recently treated for a UTI. 1) TIA - pt placed on full dose ASA as she was not compliant with her aspirin following her previous TIA. We will increase her Statin dose pending reevaluation by the neurology service for further recommendations. It is possible that her carotid stenosis is the source as it would make sense anatomically. 2) CHF - grade 1 diastolic dysfunction on recent echo - pt is euvolemic presently 3) COPD - advanced - no evidence of acute exacerbation - cont prescribed inhalers, PRN albuterol, prednisone, 02 protocol. 4) Hx SVTs - sinus rhythm on arrival - monitor as B andrew held 5) HTN - meds held pending AM reassessment due to acute TIA 6) Anemia - chronic - 10-11 - below baseline per recent admission - she will be placed back on ASA so we will obtain a stool guiac and anemia workup - recheck Hb AM Full code - SCDs pending AM Hb Total time for this admit including review of labs, meds, imaging, EKG, records - discussion with pt and ER attending - 38 min Level of Care Telemetry Resuscitation Status FULL RESUSCITATION
[2017-01-25] MEDS ORDERED: IV FLUIDS COMPLETED PRN (20:15)
[2017-01-25 21:00] VITALS: BP 152/75; PULSE 89; TEMP 36.5; O2SAT 95
[2017-01-25] MEDS ORDERED: BUDESONIDE 0.5 MG/2 ML VIAL (PULMICORT) INH SCH (21:00)
[2017-01-25] MEDS ORDERED: IPRATROPIUM BROMIDE NASAL SPRAY 0.06% 15ML INH PRN (21:45)
[2017-01-25 22:00] VITALS: BP 152/75; PULSE 89; TEMP 36.5; O2SAT 95; Ht 165.1 cm; Wt 67.4 kg
[2017-01-25 23:12] VITALS: BP 123/73; PULSE 83; TEMP 36.3; O2SAT 97
[2017-01-26] VITALS (8 sets, daily range): BP systolic 155–173; BP diastolic 71–94; PULSE 78–109; TEMP 36.5–37; O2SAT 95–98
[2017-01-26 00:54] LABS: URINE APPEARANCE CLEAR (CLEAR); URINE BILIRUBIN NEG (NEG); URINE COLOR YELLOW; URINE NITRITE NEG (NEG); URINE PH 5.5 (4.5-7.5); URINE SPECIFIC GRAVITY 1.023 (1.000-1.030); UROBILINOGEN NEG (NEG); ZZUR CULT IF INDIC CLEAN CATCH NO
[2017-01-26 00:56] LABS: MANUAL MICROSCOPIC REQUIRED? NO; REVIEW REQ? NO
[2017-01-26 05:41] LABS: BASO % 0.6 %; BASO ABS # 0.04 K/uL (0-0.2); HEMATOCRIT 29.6 % (37-47); IG% 0.2 %; LYMPH % 27.7 %; LYMPH ABS # 1.81 K/uL (1.2-3.4); MEAN CELL VOLUME 88.4 fL (80-100); MEAN CORPUSCULAR HGB CONC 29.4 g/dl (32-36); MEAN PLATELET VOLUME 9.6 fL (7.4-10.4); MONO % 14.4 %; NEUT % 52.1 %; PLATELET COUNT 245 K/uL (130-400); RED BLOOD COUNT 3.35 M/uL (4.2-5.4); WHITE BLOOD COUNT 6.54 K/uL (4.8-10.8)
[2017-01-26 06:12] LABS: COMPLETE YES; OVALOCYTES 1+
[2017-01-26 06:22] LABS: BUN/CREATININE RATIO 17.2 (10-20); CALCIUM 8.4 mg/dl (8.5-10.1); CREATININE 0.9 mg/dl (0.60-1.20); POTASSIUM 3.8 mmol/L (3.5-5.1)
[2017-01-26 06:25] LABS: CHOLESTEROL/HDL RATIO 2.5
[2017-01-26 06:49] LABS: ESTIMATED AVERAGE GLUCOSE 126 mg/dl; HA1C FLAG Normal (Normal)
[2017-01-26] MEDS: BUDESONIDE 0.5 MG/2 ML VIAL (PULMICORT) INH SCH ×2 (07:42→20:09)
[2017-01-26] MEDS: ATORVASTATIN 40 MG TAB PO SCH (08:06)
[2017-01-26] MEDS: DONEPEZIL HCL 5 MG TAB PO SCH (08:06)
[2017-01-26] MEDS: TIOTROPIUM BROMIDE 5 PUFF/90 MCG INH INH SCH (08:06)
[2017-01-26] MEDS: ARIPIprazole TAB 5 MG TAB PO SCH (08:06)
[2017-01-26] MEDS: SERTRALINE HCL 50 MG TAB PO SCH (08:07)
[2017-01-26] MEDS: PANTOprazole SOD 40 MG TAB PO SCH ×2 (08:07→21:03)
[2017-01-26] MEDS ORDERED: ASPIRIN 81 MG ECTAB PO SCH ×2 (09:00)
[2017-01-26] MEDS ORDERED: DULOXETINE HCL 60 MG CAP PO SCH (09:00)
[2017-01-26] MEDS ORDERED: ASPIRIN 325 MG ECTAB PO SCH (09:00)
[2017-01-26] MEDS ORDERED: CITALOPRAM 20 MG TAB PO SCH (09:00)
--- NOTE | 2017-01-26 09:27 | Neurology Consultation ---
Neurology Consultation Date of Consultation: Jan 26, 2017. Attending Physician: Demetrio Fernando M.D. Primary Care Physician: Emigdio Draper D.O. Reason for Consultation: The patient is an 82-year-old, who I was asked to see the request of Dr. Fernando, for neurologic consultation regarding transient expressive aphasia. History of Present Illness Source: patient, caregiver, hospital records This patient has a long-standing history of COPD and chronic cigarette smoking. She has a history of various cardiac issues including congestive heart failure and SVT as well as hypertension. The patient has a history of memory dysfunction and is occasionally confused in the evening. She is on low-dose donepezil 5mg daily Patient has long-standing anxiety depressive disorder followed by psychiatry ( [place], but she is not certain who her psychiatrist is) since the of her child at age 44 from an overdose. Currently she is on citalopram 10mg daily , duloxetine 60mg daily, sertraline 50mg daily, and buspirone 10mg daily. The patient has a history of significant lumbar spinal stenosis, L3-4 and L4-5 requiring surgery in 2009 in [place]. 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 She has osteoarthritis and is fused from L2-L5. She has a lumbar spinal stimulator by pain management and is followed by Dr. Barnes. Over the last 2 weeks, the low back pain has been worse and she has pain that radiates down the lateral aspect of the left leg. The right leg and both arms are unremarkable. She has not had any stroke in the past but she did have a TIA January 02, 2017. She had the sudden onset of inability to get words out. She knew what she wanted to say but it was garbled and nonsensical. This lead to frustration on her part. It lasted about 30 minutes and was resolved by the time she arrived at the emergency room. She had no other symptoms or problems. I saw the patient and there was no evidence of neurologic deficit on examination. Although a carotid ultrasound revealed possible left ICA stenosis at 50-69%, CT angiography of the head and neck showed no significant vessel stenosis or abnormalities (although there was extensive plaque in the common carotids, subclavius, and aortic arch). MRIs could not be done due to lumbar spinal stimulator implantation. The patient was discharged with a diagnosis of TIA, on a statin and 81 mg aspirin tablet, but she has not been compliant. She told me today that she didn't know she had to take aspirin. Patient had a urinary tract infection recently and has been treated by Dr. Draper Yesterday, around 1600 hours, the patient was talking to her and had the sudden onset of inability to get words out. Her speech was garbled. She knew what she wanted to say but just didn't come out right. She feels it lasted about 5-10 minutes. By the time she arrived at the emergency room her speech back to normal. She did not have any new pain, headache, vision problem , weakness, numbness, or confusion. She arrived in the emergency room at 1841 hours on January 25, with a temperature 37 1, pulse 90, respiratory rate 18, blood pressure 130/73, and O2 saturation 96%. On examination NIH stroke scale was 0. CT scan of the head showed old ischemia but no acute changes. Chest x-ray showed the old COPD changes as well as some bibasilar atelectasis. CBC revealed significant anemia. Chem profile showed a glucose of 1:30 with normal lipid profile, and TSH. Overnight the patient had no new events. Nursing reports perhaps some confusion. This morning, she has no pain or headache, confusion, dizziness and she has not had any flushing or sweating. Past Medical/Surgical History Medical Problems: (1) AAA (abdominal aortic aneurysm) Status: Acute (2) AAA (abdominal aortic aneurysm) Status: Acute (3) Atrial fibrillation with RVR Status: Acute (4) Gastritis Status: Acute (5) Low back pain Status: Acute (6) Sacroiliitis Status: Acute (7) TIA (transient ischemic attack) Status: Acute (8) Weakness Status: Acute Abdominal aortic aneurysm, 5 cm 5 cm, recently checked by CT angiography last month and is slightly bigger than previous History of congestive heart failure and SVT Chronic, significant COPD Dyslipidemia Hypertension Chronic low back pain, post lumbar fusion L2-L5 in 2009, with occasional left lower extremity L5 radicular symptoms, followed by pain management. She has had a spinal stimulator implanted. Bilateral cataract surgery Mastectomy Tonsillectomy Family History Mother age 56 of an MS and had hypertension Father age 43, secondary to motor vehicle accident, with no other medical issues that the patient is aware of Social History Patient smokes cigarettes for 60 years approximately one pack per day, stopping in May 2016. Occasionally, she will have a drink of alcohol. This is been much less frequent and more recently. Patient owns a travel agency consulted, retiring about 4 years ago. Smoking Status: Former smoker Smokeless Tobacco Use: No Alcohol Use: occasionally Drug Use: none Marital Status: Housing Status: lives with significant other Occupation Status: retired Allergies Coded Allergies: Latex2 -Systemic Allergic Response (Verified Allergy, Unknown, HIVES, ITCHING SWELLING,, 01/25/17) Lisinopril (Verified Adverse Reaction, Mild, cough, 01/25/17) Current Inpatient Medications Current Inpatient Medications Medications (Trade) Dose Ordered Sig/Lupe Route Start Time Stop Time Status Last Admin Dose Admin Atorvastatin Calcium (Lipitor Tab) 40 mg QAM PO 01/26/17 09:00 02/25/17 08:59 01/26/17 08:06 40 MG Miscellaneous Information (Pharmacist Discharge Med Rec Consult) 1 ea UD PRN N/A 01/25/17 19:30 02/24/17 19:29 Aripiprazole (Abilify Tab) 5 mg QAM PO 01/26/17 09:00 02/25/17 08:59 01/26/17 08:06 5 MG Donepezil HCl (Aricept Tab) 5 mg DAILY PO 01/26/17 09:00 02/25/17 08:59 01/26/17 08:06 5 MG Duloxetine HCl (Cymbalta Cap) 60 mg DAILY PO 01/26/17 09:00 02/25/17 08:59 01/26/17 08:06 60 MG Folic Acid (Folvite Tab) 1 mg DAILY PO 01/26/17 09:00 02/25/17 08:59 01/26/17 08:06 1 MG Prednisone (PredniSONE TAB) 10 mg DAILY PO 01/26/17 09:00 02/25/17 08:59 01/26/17 08:07 10 MG Sertraline HCl (Zoloft Tab) 50 mg DAILY PO 01/26/17 09:00 02/25/17 08:59 01/26/17 08:07 50 MG Tiotropium Prentice (Spiriva Handihaler Inhaler) 1 puff DAILY INH 01/26/17 09:00 02/25/17 08:59 01/26/17 08:06 1 PUFF Buspirone HCl (Buspar Tab) 10 mg DAILY PO 01/26/17 09:00 02/25/17 08:59 01/26/17 08:06 10 MG Citalopram Hydrobromide (celeXA TAB) 10 mg DAILY PO 01/26/17 09:00 02/25/17 08:59 01/26/17 08:06 10 MG Ipratropium Prentice (Atrovent Nasal [place] 0.06%) 1 sprays Q4H PRN INH 01/25/17 21:45 02/24/17 21:44 Pantoprazole Sodium (Protonix Tab) 40 mg BID PO 01/26/17 09:00 02/25/17 08:59 01/26/17 08:07 40 MG Albuterol Sulfate (Ventolin 0.083% 2.5MG/3ML Neb) 2.5 mg Q4H PRN INH 01/25/17 19:30 02/24/17 19:29 Aspirin (Ecotrin Tab) 325 mg QAM PO 01/26/17 09:00 02/25/17 08:59 01/26/17 08:06 325 MG Acetaminophen (Tylenol Tab) 650 mg Q4H PRN PO 01/25/17 19:45 02/24/17 19:44 Al Hydrox/Mg Hydrox/Simethicone (Maalox Max Susp) 15 ml Q4H PRN PO 01/25/17 19:45 02/24/17 19:44 Magnesium Hydroxide (Milk Of Magnesia Susp) 30 ml Q12H PRN PO 01/25/17 19:45 02/24/17 19:44 Ondansetron HCl (Zofran Inj) 4 mg Q6H PRN IV 01/25/17 19:45 02/24/17 19:44 Morphine Sulfate (MoRPHine SULFATE INJ) 2 mg Q30M PRN IV 01/25/17 19:45 02/08/17 19:44 Polyethylene (Miralax Powder Packet) 17 gm DAILY PRN PO 01/25/17 19:45 02/24/17 19:44 Miscellaneous (Iv Fluids Completed) 1 ea PRN PRN N/A 9/14/17 20:15 01/25/18 20:14 Budesonide (Pulmicort Respules 0.5MG/ 2ML Neb Soln) 0.5 mg BIDR INH 01/26/17 08:00 02/25/17 07:59 01/26/17 07:42 0.5 MG Review of Systems Constitutional: No weakness, No fatigue Eyes: No worsening of vision, No diplopia ENT: No sore throat, No trouble swallowing Respiratory: No cough, No shortness of breath Cardiovascular: No chest pain, No palpitations Abdomen: No pain, No nausea Musculoskeletal: + joint pain, No muscle pain Genitourinary - Female: No dysuria, No urinary incontinence Neurologic: + memory loss, No weakness, No numbness/tingling, No balance problems Psychiatric: No depression symptoms, No anxiety Endocrine: No fatigue Hematologic / Lymphatic: No abnormal bleeding/bruising Integumentary: No rash Allergic / Immunologic: No hives Physical Exam Vital Signs (Past 24 Hrs): Date Time Temp Pulse Resp B/P (MAP) Pulse Ox O2 Delivery O2 Flow Rate FiO2 01/26/17 07:45 Nasal Cannula 2.0 01/26/17 07:42 79 18 96 Nasal Cannula 2.0 01/26/17 07:38 37.0 82 18 167/78 (107) 98 3.0 01/26/17 04:00 Nasal Cannula 2.0 01/26/17 03:59 36.9 84 16 156/71 (99) 96 Nasal Cannula 3.0 01/26/17 00:00 Nasal Cannula 2.0 01/25/17 23:12 36.3 83 20 123/73 (90) 97 Nasal Cannula 3.0 01/25/17 22:00 36.5 89 18 152/75 95 Nasal Cannula 2.0 01/25/17 21:00 36.5 89 18 152/75 (100) 95 Nasal Cannula 2.0 01/25/17 20:26 154/85 01/25/17 20:08 67 19 99 Nasal Cannula 2.0 01/25/17 19:40 152/47 01/25/17 19:38 68 18 100 01/25/17 19:08 73 20 100 01/25/17 19:03 72 01/25/17 19:03 74 15 100 Nasal Cannula 2.0 01/25/17 18:41 37.1 90 18 130/73 96 Room Air 01/25/17 18:36 130/73 Patient is right-handed. The patient is awake and alert. Speech is normal without aphasia or dysarthria. Mentation and thought processes are reasonable for conversation but she did not know the year, the day, or the president. She didn't know the date and month. She clearly has short-term memory problems. She could name test objects and colors. She was pleasant and cooperative. Mood and affect are normal and appropriate. Appearance and grooming are normal. The discs are sharp with positive venous pulsations. There are no exudates, hemorrhages, or blood vessel changes seen. Pupils are 4mm bilaterally and reactive to light. Extraocular eye muscles are intact without nystagmus. Visual acuity and visual crocker seem normal grossly to confrontation. There are no deficits to sensation of the face bilaterally. Corneal reflexes are positive bilaterally. Facial strength and symmetry is normal bilaterally. Hearing seems intact grossly to voice and finger rub. Palate moves well without asymmetry. There is normal sternocleidomastoid and trapezius strength bilaterally. Tongue is midline with good strength bilaterally. Neck is with full range of motion without discomfort. There are no cervical bruits. There are no cranial or ocular bruits. Heart is without murmur. Cervical, thoracic, and lumbar spine are nontender to palpation. Gait is normal. There is good are swing, turn, stance, and balance. The patient can tandem walk without difficulty. With outstretched arms there is no drift. There are no resting, postural, or action tremors. There is no ataxia with [id number] testing. There is good facility in the hands. There are no abnormal involuntary movements noted. Motor strength is 5/5 diffusely in the arms bilaterally including deltoids, biceps, brachioradialis, wrist flexors and extensors, collating machine operator, and intrinsic hand muscles. Motor strength is 5/5 diffusely in the legs bilaterally including hip flexors, quadriceps, hamstring, gastrocnemius, tibialis anterior, tibialis posterior, and peroneii muscles bilaterally. Toe extensors are normal and there is good bulk in the extensor digitorum brevis muscle bilaterally. The limbs have good tone without rigidity or spasticity, and there is no atrophy noted. Muscle bulk is normal, there is no tenderness, no myotonia noted to percussion, and no fasciculations seen. Sensory examination is intact to pin and touch throughout all four limbs. Vibratory and position sense testing is normal bilaterally as well. There is normal sensation to temperature. Reflexes are 2/4 in the biceps, triceps, brachioradialis, and quadriceps tendons bilaterally. Achilles tendon reflexes are absent bilaterally. Toes are downgoing with plantar stimulation bilaterally. Peripheral pulses are present and of normal quality distally in all four limbs. There is no peripheral edema noted. Laboratory Results Past 24 Hours: 01/26/17 05:17 Red Blood Count 3.35, Mean Corpuscular Volume 88.4, Mean Corpuscular Hemoglobin 26.0, Mean Corpuscular Hemoglobin Concent 29.4, Mean Platelet Volume 9.6, Neutrophils (%) (Auto) 52.1, Lymphocytes (%) (Auto) 27.7, Monocytes (%) (Auto) 14.4, Eosinophils (%) (Auto) 5.0, Basophils (%) (Auto) 0.6, Neutrophils # (Auto ) 3.41, Lymphocytes # (Auto) 1.81, Monocytes # (Auto) 0.94, Eosinophils # (Auto ) 0.33, Basophils # (Auto) 0.04 01/26/17 05:17 Test 01/25/17 18:50 01/25/17 18:51 01/26/17 00:40 01/26/17 05:17 Bedside Hemoglobin 9.9 g/dl (12.0-16.0) Bedside Hematocrit 29 % (37-47) Bedside Sodium 141 mEq/L (135-144) Bedside Potassium 4.0 mEq/L (3.3-5.0) Bedside Chloride 101 mEq/L (101-112) Bedside Total CO2 31 mEq/l (24-31) Bedside Blood Urea Nitrogen 22 mg/dl (7-18) Bedside Creatinine 1.2 mg/dl (0.6-1.3) Bedside Glucose (other) 129 mg/dl (70-99) Estimated Average Glucose 126 mg/dl Hemoglobin A1c 6.0 % (4.5-5.6) Bedside Ionized Calcium (Yehuda) 1.16 mmol/l (1.12-1.32) Magnesium Level 2.1 mg/dl (1.8-2.4) Total Bilirubin 0.2 mg/dl (0.2-1) Aspartate Amino Transf (AST/SGOT) 15 U/L (15-37) Alanine Aminotransferase (ALT/SGPT) 16 U/L (12-78) Alkaline Phosphatase 91 U/L (45-117) Troponin I < 0.015 ng/ml (0-0.045) Total Protein 6.8 gm/dl (6.4-8.2) Albumin 3.2 gm/dl (3.4-5.0) Globulin 3.6 gm/dl (2.5-4.0) Albumin/Globulin Ratio 0.9 (0.9-2) Thyroid Stimulating Hormone (TSH) 2.370 uIu/ml (0.300-4.500) Bedside Prothrombin Time INR 1.0 (0.9-1.1) Bedside Glucose 133 mg/dl (70-90) Urine Color YELLOW Urine Appearance CLEAR (CLEAR) Urine pH 5.5 (4.5-7.5) Urine Specific [place] 1.023 (1.000-1.030) Urine Protein NEG (NEG) Urine Glucose (UA) NEG (NEG) Urine Ketones NEG (NEG) Urine Occult Blood NEG (NEG) Urine Nitrite NEG (NEG) Urine Bilirubin NEG (NEG) Urine Urobilinogen NEG (NEG) Urine Leukocyte Esterase NEG (NEG) White Blood Count 6.54 K/uL (4.8-10.8) Red Blood Count 3.35 M/uL (4.2-5.4) Hemoglobin 8.7 g/dL (12.0-16.0) Hematocrit 29.6 % (37-47) Mean Corpuscular Volume 88.4 fL (80-100) Mean Corpuscular Hemoglobin 26.0 pg (25-34) Mean Corpuscular Hemoglobin Concent 29.4 g/dl (32-36) Platelet Count 245 K/uL (130-400) Mean Platelet Volume 9.6 fL (7.4-10.4) Neutrophils (%) (Auto) 52.1 % Lymphocytes (%) (Auto) 27.7 % Monocytes (%) (Auto) 14.4 % Eosinophils (%) (Auto) 5.0 % Basophils (%) (Auto) 0.6 % Neutrophils # (Auto) 3.41 K/uL (1.4-6.5) Lymphocytes # (Auto) 1.81 K/uL (1.2-3.4) Monocytes # (Auto) 0.94 K/uL (0.11-0.59) Eosinophils # (Auto) 0.33 K/uL (0-0.5) Basophils # (Auto) 0.04 K/uL (0-0.2) RDW Standard Deviation 52.1 fL (36.4-46.3) RDW Coefficient of Variation 16.0 % (11.5-14.5) Immature Granulocyte % (Auto) 0.2 % Immature Granulocyte # (Auto) 0.01 K/uL (0.00-0.02) Ovalocytes 1+ Anion Gap 3.0 mmol/L (3-11) Est Creatinine Clear Calc Drug Dose 44.9 ml/min Estimated GFR () 70.0 Estimated GFR (Non- 60.4 BUN/Creatinine Ratio 17.2 (10-20) Calcium Level 8.4 mg/dl (8.5-10.1) Triglycerides Level 123 mg/dl (0-150) Cholesterol Level 111 mg/dl (0-200) HDL Cholesterol 44 mg/dl LDL Cholesterol, Calculated 42 mg/dl VLDL Cholesterol, Calculated 25 mg/dl Cholesterol/HDL Ratio 2.5 Impression 1. Acute onset expressive aphasia January 25, lasting only minutes. Similar event January 02. These are brief transient ischemic attacks. The patient has no sign of stroke on neurologic examination today. I would prefer to had an MRI of the brain but her spinal cord stimulator implanted is not compatible with MRI. Extensive CT angiography several weeks ago reveals diffuse plaque but no significant stenosis and vessels of the head or neck. She was discharged on aspirin daily January 03, but she did not take the aspirin. Risk factors for stroke and TIA include hypertension, dyslipidemia, history of cigarette smoking, and history of alcohol use. Significant anemia can create TIA events also. CT scan shows old mild to moderate chronic cerebral ischemia. 2. Mild underlying dementia, likely vascular She is on low-dose donepezil, and I am uncertain if this is helping her. 3. Chronic low back pain and left L5 radicular pain, post lumbar spine fusion L2-L5 in 2009, and post spinal cord stimulator implantation She is followed by pain management. 4. Depression and anxiety. She is followed by psychiatry at [facility] I note that she is on 4 antidepressants all at relatively low doses. I am concerned about possible serotonin syndrome using to SSRIs plus duloxetine. Fortunately, she does not display overt signs of serotonin syndrome since I saw her in December and currently. 5. Hypertension, with improved control 6. Severe COPD, on steroids and other medication, stable 7. Mild action tremor noted bilaterally on last visit is not readily apparent this morning. There is no sign of Parkinson's disease. Plan 1. Initiate his stay on 81 mg aspirin tablet daily. 2. Given the patient's age and low cholesterol level, she is not a candidate for high-dose statins. Regular doses of statins are reasonable. 3. Unfortunately, we cannot get an MRI because of her spinal cord stimulator. 4. I would consider discontinuing citalopram and sertraline, and continue duloxetine. Or, keep sertraline and discontinue citalopram and duloxetine. However, I think it's better if we defer this to her psychiatrist. 5. Either increased donepezil 2 a standard dose at 10 mg twice a day over the next several weeks, or discontinue (it is not doing much good at this low dose). If a higher doses of donepezil cannot be tolerated, then consider memantine. I really do not see a need for any additional neurologic testing or treatment otherwise at this time (she had what we could get on January 02). Initiate aspirin daily and control risk factors for now. I can follow-up as an outpatient if desired. I spoke with Dr. Lazcano regarding this case including differential diagnosis and treatment options.
[2017-01-26 16:02] LABS: HEMATOCRIT 31.5 % (37-47)
[2017-01-26] MEDS: ERTAPENEM IV 1 GM in SODIUM CHLOR 0.9% AD-VAN 50ML IV SCH (16:19)
[2017-01-26 16:33] LABS: FERRITIN 32.8 ng/ml (8.0-388.0)
[2017-01-26] MEDS ORDERED: METOPROLOL SUCC 50MG EXT REL TAB PO STA (17:19)
--- NOTE | 2017-01-26 22:19 | Progress Note ---
Subjective Date of Service: Jan 26, 2017. Subjective Pt evaluation today including: conversation w/ patient, conversation w/ family (, daughter), physical exam, chart review, lab review, review of studies (CT head), conversation w/ medical sales consultant (neurology, pharmacy), review of inpatient medication list Pain: denied h/a, cp, abd pain PO Intake: baseline Voiding: no voiding problems tele stable since admission - no a. fib, etc no further aphasia or speech difficulties no new neuro symptoms family reports she was dx with recent UTI - was supposed to get 7 days of IV abx for this at our [facility] called pharmacy - she was initially on gentamicin for such; changed to ertapenem yesterday urine culture was done at [facility] - pathogen (klebsiella) only sens to zosyn & ertapenem family reports it is a burden to go daily for new peripheral IV and get IV abx has been quite deconditioned "for months" denies any melena or BRBPR but does get some stomach pain at times takes PPI on chronic o2 at home Problem List Medical Problems: (1) AAA (abdominal aortic aneurysm) Status: Acute (2) AAA (abdominal aortic aneurysm) Status: Acute (3) Atrial fibrillation with RVR Status: Acute (4) Gastritis Status: Acute (5) Low back pain Status: Acute (6) Sacroiliitis Status: Acute (7) TIA (transient ischemic attack) Status: Acute (8) Weakness Status: Acute Review of Systems Constitutional: No fever Respiratory: + dyspnea on exertion, No dyspnea at rest Cardiac: No chest pain Abdomen: No pain Objective Vital Signs Date Time Temp Pulse Resp B/P (MAP) Pulse Ox O2 Delivery O2 Flow Rate FiO2 01/26/17 20:12 100 18 97 Nasal Cannula 2.0 01/26/17 20:00 Nasal Cannula 2.0 01/26/17 19:22 36.6 97 16 158/85 (109) 97 Nasal Cannula 2.0 01/26/17 16:00 Nasal Cannula 2.0 01/26/17 15:29 36.5 109 16 173/94 (120) 96 3.0 01/26/17 12:15 Nasal Cannula 2.0 01/26/17 12:05 36.6 78 16 163/82 (109) 95 3.0 01/26/17 07:45 Nasal Cannula 2.0 01/26/17 07:42 79 18 96 Nasal Cannula 2.0 01/26/17 07:38 37.0 82 18 167/78 (107) 98 3.0 01/26/17 04:00 Nasal Cannula 2.0 01/26/17 03:59 36.9 84 16 156/71 (99) 96 Nasal Cannula 3.0 01/26/17 00:00 Nasal Cannula 2.0 01/25/17 23:12 36.3 83 20 123/73 (90) 97 Nasal Cannula 3.0 Physical Exam General Appearance: no apparent distress ENT: pharynx normal Neck: no JVD Respiratory/Chest: lungs clear, no respiratory distress, no accessory muscle use Cardiovascular: no gallop, no murmur, + tachycardia Abdomen: normal bowel sounds, non tender, soft, no organomegaly Extremities: no pedal edema Neurologic/Psychiatric: no motor/sensory deficits, alert, + pertinent finding ( speech fluent and normal) Skin: + pallor Laboratory Results Last 24 Hours Test 01/26/17 00:40 01/26/17 05:17 01/26/17 15:50 Urine Color YELLOW Urine Appearance CLEAR Urine pH 5.5 Urine Specific [place] 1.023 Urine Protein NEG Urine Glucose (UA) NEG Urine Ketones NEG Urine Occult Blood NEG Urine Nitrite NEG Urine Bilirubin NEG Urine Urobilinogen NEG Urine Leukocyte Esterase NEG White Blood Count 6.54 K/uL Red Blood Count 3.35 M/uL Hemoglobin 8.7 g/dL 9.7 g/dL Hematocrit 29.6 % 31.5 % Mean Corpuscular Volume 88.4 fL Mean Corpuscular Hemoglobin 26.0 pg Mean Corpuscular Hemoglobin Concent 29.4 g/dl Platelet Count 245 K/uL Mean Platelet Volume 9.6 fL Neutrophils (%) (Auto) 52.1 % Lymphocytes (%) (Auto) 27.7 % Monocytes (%) (Auto) 14.4 % Eosinophils (%) (Auto) 5.0 % Basophils (%) (Auto) 0.6 % Neutrophils # (Auto) 3.41 K/uL Lymphocytes # (Auto) 1.81 K/uL Monocytes # (Auto) 0.94 K/uL Eosinophils # (Auto) 0.33 K/uL Basophils # (Auto) 0.04 K/uL RDW Standard Deviation 52.1 fL RDW Coefficient of Variation 16.0 % Immature Granulocyte % (Auto) 0.2 % Immature Granulocyte # (Auto) 0.01 K/uL Ovalocytes 1+ Sodium Level 143 mmol/L Potassium Level 3.8 mmol/L Chloride Level 108 mmol/L Carbon Dioxide Level 32 mmol/L Anion Gap 3.0 mmol/L Blood Urea Nitrogen 15 mg/dl Creatinine 0.90 mg/dl Est Creatinine Clear Calc Drug Dose 44.9 ml/min Estimated GFR () 70.0 Estimated GFR (Non- 60.4 BUN/Creatinine Ratio 17.2 Random Glucose 103 mg/dl Calcium Level 8.4 mg/dl Triglycerides Level 123 mg/dl Cholesterol Level 111 mg/dl HDL Cholesterol 44 mg/dl LDL Cholesterol, Calculated 42 mg/dl VLDL Cholesterol, Calculated 25 mg/dl Cholesterol/HDL Ratio 2.5 Erythrocyte Sedimentation Rate 33 mm/hr Iron Level 21 mcg/dl Total Iron Binding Capacity 371 mcg/dl Transferrin 287 mg/dl Transferrin % Saturation 5 % Ferritin 32.8 ng/ml Assessment and Plan 82yo female - 1. TIA - aphasia now resolved. Agree with neurology that she simply needs to resume aspirin; she did NOT take aspirin after her TIA in December (she stated "I didn't know I needed to take it") . Had extensive TIA w/u just 1 month ago - will not repeat any studies at this time. 2. anemia - appears 2nd to iron deficiency (ferritin 30, Fe sat is low). Start ferrous sulfate 325mg BID. Has had gastritis and takes PPI. Poor candidate for endoscopic work-up. Recent vitamin B12 level was low-normal - will supplement orally. Repeat H/H later today were stable. Repeat Hb in am. 3. chronic resp failure 2nd to COPD - stable on home NC O2 amount. 4. chronic diastolic CHF - compensated. 5. AAA - noted; has been linked with Dr. Tripp Echeverria. 6. h/o SVT - noted. Cont beta andrew. 7. klebsiella UTI - day #2 ertapenem. Will give dose #3 in the AM Will check with SW to see if we can secure ertapenem for her home in the form of IM injections 8. HTN - uncontrolled; resume metoprolol and losartan 9. CKD stage 3 - Cr stable 10. Lumbar stenosis with implanted stimulator and Chronic gait dysfunction - home PT & OT 11. depression/anxiety - daughter confirms she ONLY takes abilify 5mg daily, zoloft 50mg daily. These have been changed in the med rec. 12. chronic prednisone use - for COPD? inquire with family 13. dementia - noted. Aricept. 14. DVT proph - if she does not d/c home tomorrow then add heparin SC. family updated time spent today discussing care with neurology, pharmacy; discussing care with family (2x's) - 60 minutes Discharge planning: home with home health
[2017-01-27] VITALS (9 sets, daily range): BP systolic 143–170; BP diastolic 73–87; PULSE 72–87; TEMP 36.4–37.2; O2SAT 91–99
[2017-01-27 07:08] LABS: CALCIUM 8.9 mg/dl (8.5-10.1); CREATININE 0.96 mg/dl (0.60-1.20); POTASSIUM 3.9 mmol/L (3.5-5.1)
[2017-01-27] MEDS: BUDESONIDE 0.5 MG/2 ML VIAL (PULMICORT) INH SCH (07:22)
[2017-01-27] MEDS ORDERED: FERROUS SULFATE 325 MG TAB PO SCH (08:00)
[2017-01-27] MEDS ORDERED: METOPROLOL SUCC 50MG EXT REL TAB PO SCH (09:00)
[2017-01-27] MEDS ORDERED: LOSARTAN POTASSIUM 25 MG TAB PO SCH (09:00)
[2017-01-27] MEDS ORDERED: CYANOCOBALAMIN 500 MCG TAB (VIT B-12) PO SCH (09:00)
[2017-01-27] MEDS ORDERED: ASPIRIN 81 MG ECTAB PO SCH (09:00)
[2017-01-27] MEDS: TIOTROPIUM BROMIDE 5 PUFF/90 MCG INH INH SCH (09:07)
[2017-01-27] MEDS: ARIPIprazole TAB 5 MG TAB PO SCH (09:07)
[2017-01-27] MEDS: DONEPEZIL HCL 5 MG TAB PO SCH (09:08)
[2017-01-27] MEDS: ATORVASTATIN 40 MG TAB PO SCH (09:10)
[2017-01-27] MEDS: PANTOprazole SOD 40 MG TAB PO SCH (09:11)
[2017-01-27] MEDS: SERTRALINE HCL 50 MG TAB PO SCH (09:12)
[2017-01-27] MEDS: ERTAPENEM IV 1 GM in SODIUM CHLOR 0.9% AD-VAN 50ML IV SCH (09:13)
[2017-01-27] MEDS ORDERED: VTMB12 PO (15:48)
[2017-01-27] MEDS ORDERED: FRRS300 PO (15:48)
[2017-01-27] MEDS ORDERED: ERTA1INJ IV (15:49)
--- NOTE | 2017-01-27 15:56 | Discharge Instructions ---
Discharge Instructions Date of Service Jan 27, 2017. Admission Reason for Admission: TIA Discharge Discharge Diagnosis / Problem: 1. TIA - resolved. 2. Iron Deficiency Anemia. Discharge Goals Goal(s): Learn about illness, Diagnostic testing, Therapeutic intervention Activity Recommendations Activity Limitations: resume your previous activity . Instructions / Follow-Up Instructions / Follow-Up From Dr. Lazcano - 1. Your speech difficulty prior to coming to the hospital was due to a "TIA". This is called a "transient ischemic attack." This means that you had a lack of blood flow to the area of the brain that controls your ability to speak. A TIA is NOT a stroke but it is a big risk factor for a stroke. To prevent another TIA or Stroke please take Aspirin 81mg every day with food. You can purchase this [id number]. Risk Factors for Stroke: You can reduce your chances of stroke by working with your medical provider to adopt a healthy lifestyle. Some specific ways to lower your chance of stroke are: * If you are a smoker, now is the time to stop smoking cigarettes * If you are diabetic, improve the control of your blood sugars * Avoid excessive amounts of alcohol * Control high blood pressure * Lose weight if you are overweight * Be sure to lead an active lifestyle * Eat a healthy diet low in salt, cholesterol and fat You should know about other risk factors for stroke that you are unable to control. These include: * Age 55 years or older * Male gender * Certain racial groups: , or / * Family History of Stroke, Mini stroke or Heart Attack * Sickle Cell Disease 2. Iron deficiency anemia - * please start ferrous sulfate 325mg twice daily; you will need to take this for 3-4 months * you can purchase this [id number] * iron causes the stools to be dark and can cause constipation * the most common cause of iron deficiency is loss of blood in the GI tract * please speak to Dr. 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 Your vitamin B12 level was low-normal. Please purchase [id number]-[id number] Vitamin B12 and take 1000mcg daily. Take this for about 6 months. 4. Report to the "MTU" at [facility] on Sunday, 01/28 and Addy , 9/18 for your last 2 days of your antibiotics for the recent UTI. 5. We will try to set you up with home therapy to help you with your strength, balance, etc. 6. Return to [facility] if - * you have recurrent "TIA" symptoms (difficulty speaking, weakness in an arm or leg, numbness in an arm or leg, severe balance problems, etc) * shortness of breath or chest pain * fever over 100.4 degrees * any other concerns 7. Please follow-up with Dr. Slater within 1 week at [facility]. Current Hospital Diet Patient's current hospital diet: AHA Diet (Heart Healthy) Discharge Diet Recommended Diet: AHA Diet (Heart Healthy) Procedures Procedures Performed: CAT scan of the brain showing NO evidence of a stroke. Pending Studies Studies pending at discharge: no Laboratory Results Hemoglobin A1c Test 01/25/17 18:50 Range/Units Estimated Average Glucose 126 mg/dl Hemoglobin A1c 6.0 H 4.5-5.6 % Lipid Panel Test 01/26/17 05:17 Range/Units Triglycerides Level 123 0-150 mg/dl Cholesterol Level 111 0-200 mg/dl HDL Cholesterol 44 mg/dl Cholesterol/HDL Ratio 2.5 LDL Cholesterol, Calculated 42 mg/dl Medical Emergencies . Who to Call and When: Medical Emergencies: Call 911 immediately if you experience any of the following warning signs and symptoms of Stroke: * Sudden numbness or weakness of the face, arm or leg, especially on one side of the body * Sudden confusion, trouble speaking or understanding * Sudden trouble seeing in one or both eyes * Sudden trouble walking, dizziness, loss of balance or coordination * Sudden severe headache with no cause Do not delay calling 911 if you experience any warning signs or symptoms of a stroke. Delay in seeking medical attention may affect what treatments can be given to you. . Non-Emergent Contact Non-Emergency issues call your: Primary Care Provider Call Non-Emergent contact if: temperature is above 100.5, you have any medication questions . . "Provider Documentation" section prepared by Guillermo Lazcano. . Stroke Core Measures Reason no t-PA for Stroke: Treatment not indicated Reason no antithrom by day 2: Treatment provided - N/A Reason no antithrom at D/C: Treatment provided - N/A Reason no statin at D/C: Treatment provided - N/A Reason no anticoag w/a fib: Treatment not indicated VTE Core Measure Inpt VTE Proph given/why not?: SCD's
[2017-01-28] MEDS ORDERED: IPRASOL4 INH (11:09)
--- NOTE | 2017-01-29 11:47 | Discharge Summary ---
Discharge Summary Date of Service Jan 29, 2017. Discharge Summary Admission Date: Jan 25, 2017 at 20:01 Discharge Date: Jan 27, 2017 Discharge Disposition: Home with services Principal Diagnosis: TIA Problems/Secondary Diagnoses: 1. iron deficiency anemia 2. low-normal vitamin B12 level 3. recent klebsiella UTI 4. chronic deconditioning 5. chronic hypoxic respiratory failure on home O2 6. CKD stage 3 7. AAA 8. h/o SVT 9. depression/anxiety 10. dementia 11. HTN 12. Hyperlipidemia 13. lumbar stenosis with implanted stimulator Immunizations: Have You Had Influenza Vaccine: N/A History of Tetanus Vaccine?: Yes Tetanus Immunization Date: May 14, 2005 History of Pneumococcal: Yes Pneumococcal Date: May 14, 2005 History of Hepatitis B Vaccine: No Procedures: Head CT - Impression: Age-related and chronic small vessel change. No acute intracranial abnormality. Consultations: neurology - Papo Atkinson MD PT, OT Medication Reconciliation New Medications: Ertapenem Sodium (Invanz) 1 Gm Inj 1 GM IV DAILY for 2 Days, #2 VIAL 0 Refills Cyanocobalamin (Vitamin B-12) 500 Mcg Tab 1000 MCG PO QAM, #30 TAB 5 Refills Ferrous Sulfate (Ferrous Sulfate) 325 Mg Tab 325 MG PO BIDM, #60 TAB 3 Refills Continued Medications: Aripiprazole (Abilify) 5 Mg Tab 5 MG PO QAM Aspirin (Aspirin Ec) 81 Mg Tab 81 MG PO DAILY for 90 Days, #90 TAB 3 Refills Budesonide (Inhalation) (Pulmicort) 0.5 Mg/2 Ml Rena 0.5 MG NEB BID Cholecalciferol (Vitamin D3) 1,000 Unit Cap Unknown Dose PO WK Ergocalciferol (Vitamin D 15036 Unit) 50,000 Unit Cap 57743 UNIT PO WK, CAP Folic Acid (Folvite) 1 Mg Tab 1 MG PO DAILY, TAB Home O2 Therapy (Oxygen) Gas 3 LITERS NA HS Losartan Potassium (Losartan Potassium) 25 Mg Tab 25 MG PO DAILY Metoprolol Succ (Toprol Xl) (Toprol-Xl) 50 Mg Tabcr 50 MG PO DAILY for 30 Days, #30 TAB 5 Refills Ondasetron Odt (Zofran Odt) 4 Mg Tab 4 MG SL TID for Nausea, #6 TAB Pantoprazole (Protonix) 20 Mg Tab 40 MG PO BID, #30 TAB Sertraline (Zoloft) 25 Mg Tab 50 MG PO DAILY, TAB Simvastatin (Simvastatin) 20 Mg Tab 20 MG PO QPM Tiotropium [place] (Spiriva Handihaler) 30 Puff/540 Mcg Aerp 2 CAP INH DAILY, INHALER Discontinued Medications: Buspirone HCl (Buspirone HCl) 10 Mg Tab 10 MG PO DAILY Citalopram Hydrobromide (Citalopram Hydrobromide) 10 Mg Tab 10 MG PO DAILY for 90 Days, #90 TAB 3 Refills Duloxetine HCl (Duloxetine HCl) 60 Mg Cap 60 MG PO DAILY Discharge Exam Physical Exam: General Appearance: no apparent distress ENT: pharynx normal Neck: no JVD Respiratory/Chest: lungs clear, no respiratory distress, no accessory muscle use Cardiovascular: regular rate, rhythm, no gallop, no JVD, no murmur, normal peripheral pulses Abdomen / GI: normal bowel sounds, non tender, soft, no organomegaly Extremities: no pedal edema Neurologic/Psychiatric: no motor/sensory deficits, alert, normal mood/affect , normal reflexes, + pertinent finding (speech fluent; no facial droop) Hospital Course HISTORY OF PRESENT ILLNESS: 82yo female with history of chronic hypoxic respiratory failure 2nd to COPD, chronic diastolic CHF, SVT, AAA, HTN, Hyperlipidemia, lumbar stenosis with implanted stimulator. Pt was admitted 01/02/17 with acute expressive aphasia which resolved without treatment. She underwent a complete stroke workup which was negative. The patient again developed acute aphasia today. Her symptoms have resolved on arrival to the ER. She denies additional acute symptoms such as SOB, CP, N/V, dysuria. She was recently treated for a UTI and is currently receiving IV ertapenem at our MTU (medical treatment unit). Apparently the patient was discharged with aspirin and a statin after her previous TIA but she did not comply with either, telling the admission physician she didn't realize she was supposed to have taken them. HOSPITAL COURSE: The patient's aphasia was short-lived and had resolved by the time of ER presentation. CT head did not show any acute process. She was placed back on aspirin for secondary TIA/stroke prevention. Statin therapy was also resumed. She was seen in consult by neurology, Dr. Papo Atkinson, who recommended simply resuming the aspirin as she had NOT been taking it prior to admission. Of note - her entire work-up in December 2016 for the prior TIA was completely normal. During this brief stay no atrial fibrillation was identified on telemetry. Other issues addressed - 1. anemia - appears 2nd to iron deficiency (ferritin 30, Fe sat is low, etc). She was started on ferrous sulfate 325mg BID. Has had gastritis in the past and takes chronic PPI. I recommended she discuss with Dr. Slater about obtaining a GI referral. In addition, a recent vitamin B12 level was low-normal; oral supplementation was recommended. Hemoglobin on day of discharge was 9.3. 2. klebsiella UTI - she received 2 doses of IV ertapenem. She will complete 2 more doses of such on Sunday, 01/28 and 01/29/17, at the [facility] MTU. All other medical problems remained stable while here. As recommended by our PT/OT departments she will be set up for home PT/OT after discharge. Total Time Spent: Greater than 30 minutes This includes examination of the patient, discharge planning, medication reconciliation, and communication with other providers. Discharge Instructions Please refer to the electronic Patient Visit Report (Discharge Instructions) for additional information. Follow-Up 1. Report to the MTU at [facility] on 01/28/17 as [address] Jessica Slater within 5-7 days Additional Copies To Jessica Slater M.D.
--- NOTE | 2017-02-05 12:24 | EDITING REQUIRED CODING QUERY ---
CQSUPPORTING DIAGNOSIS NEEDED A supporting diagnosis is required for the test/procedure performed on this patient in order for us to be reimbursed by the patient's insurance. Please provide a supporting diagnosis for the following test/procedure listed below next to the test name along with your signature. *If there is no additional diagnosis for this patient that would support the following test/procedure please document that below next to the test/procedure. Test(s)/Procedure(s) that require a supporting diagnosis: DOS 01/25/17 GLYCATED HEMOGLOBIN TEST Dx - hyperglycemia Provider Signature: ___Guillermo Lazcano MD Date: __02/08/17 Thank you Violet [facility] Health Information Management Once completed, please kindly fax back to [phone] For questions please call [phone]
== END 2017-01-27 16:30 | disposition home or self-care (01) ==
LOC: EDBD 18:33 → C.ED 18:36 → C.MED 20:01 → ENRESERV 20:44
PROVIDERS: ADMIT Internal Medicine; ATTEND Internal Medicine
DX: G45.9 Transient cerebral ischemic attack, unspecified (principal); B96.1 Klebsiella pneumoniae [K. pneumoniae] as the cause of diseases classified elsewhere; N39.0 Urinary tract infection, site not specified; F03.90 Unspecified dementia, unspecified severity, without behavioral disturbance, psychotic disturbance, mood disturbance, and anxiety; I71.4 Abdominal aortic aneurysm, without rupture; I47.1 Supraventricular tachycardia; I69.320 Aphasia following cerebral infarction; I65.22 Occlusion and stenosis of left carotid artery; I13.0 Hypertensive heart and chronic kidney disease with heart failure and stage 1 through stage 4 chronic kidney disease, or unspecified chronic kidney disease; N18.3 Chronic kidney disease, stage 3 (moderate); I50.30 Unspecified diastolic (congestive) heart failure; E78.5 Hyperlipidemia, unspecified; J96.11 Chronic respiratory failure with hypoxia; J44.9 Chronic obstructive pulmonary disease, unspecified; D50.9 Iron deficiency anemia, unspecified; E53.8 Deficiency of other specified B group vitamins; M96.1 Postlaminectomy syndrome, not elsewhere classified; F32.9 Major depressive disorder, single episode, unspecified; F41.9 Anxiety disorder, unspecified; Z87.891 Personal history of nicotine dependence; Z79.82 Long term (current) use of aspirin; Z79.899 Other long term (current) drug therapy; Z99.81 Dependence on supplemental oxygen; R73.9 Hyperglycemia, unspecified

== ENCOUNTER → 2017-01-31 | Outpatient (CLI) | payer OTHER, MEDICARE ==
[~2017-01-31] MED LIST changes: -ADVIN25/60 INH; -ALBINS/ INH; -ALBU18002 INH; -ARFO15NE INH; -BSP/10 PO; -CITA10TA4 PO; -CLC100X PO; -CYM60 PO; -DONE1TAB11 PO; +ERTA1INJ IV; -FLUT0.15 NAE; +FRRS300 PO; -IPRA0.06 INH; +IPRASOL4 INH; +OPTIRAY 320 IV PRN; -OXYC-57 PO; -PRED10TA PO; -SYMIN160 INH; +VTMB12 PO
--- NOTE | 2017-01-31 14:04 | DIAGNOSTIC IMAGING REPORT ---
CT ANGIOGRAPHY OF THE NECK WITH AND WITHOUT CONTRAST CLINICAL HISTORY: Carotid artery stenosis. COMPARISON STUDY: CTA of the neck January 02, 2017. TECHNIQUE: Unenhanced and arterial phase imaging of the neck was performed. Injection of 120 cc Optiray 320 IV was uneventful. Sagittal and coronal reconstructions were viewed as well as maximal intensity projections on an independent 3-D workstation. FINDINGS: Severe emphysema is noted within visualized portions of the lung apices. There is no cervical lymph adenopathy. There is extensive atherosclerotic plaque of the aortic arch. The origins of the brachiocephalic artery as well as the left common carotid and left subclavian arteries are patent. There is extensive ulcerated plaque of the proximal left subclavian artery which results in mild stenosis of this vessel. The origin of the left vertebral artery is suboptimally assessed on this exam but likely patent. There is no significant stenosis within the right vertebral artery which is dominant. There is no significant stenosis within the bilateral common carotid and internal carotid arteries. There is moderate calcified and noncalcified plaque within these 2 vessels. No dissection is identified. No aneurysm is identified within visualized portions of the intracranial vessels. IMPRESSION: 1. Moderate atherosclerotic plaque without significant stenosis of the bilateral common carotid arteries or the cervical portions of the bilateral internal carotid arteries. 2. Dominant, patent right vertebral artery. No significant vertebral artery stenosis although the origin of the left vertebral artery is suboptimally assessed due to motion artifact. 3. Extensive atherosclerotic plaque of the proximal left subclavian artery with mild stenosis. 4. Severe emphysema. Electronically signed by: Sacha Edward M.D. 01/31/2017 2:03 PM Dictated Date/Time: 01/31/2017 1:50 PM
== END | disposition home or self-care (01) ==
LOC: C.CTS 12:57
PROVIDERS: ATTEND Surgery Vascular Surgery
DX: I65.23 Occlusion and stenosis of bilateral carotid arteries (principal); I70.8 Atherosclerosis of other arteries; J43.9 Emphysema, unspecified

== ENCOUNTER 2017-03-02 13:12 | Emergency (ER) | payer OTHER, MEDICARE ==
[~2017-03-02] VITALS: Ht 167.6 cm; Wt 68.5 kg
[~2017-03-02 13:12] MED LIST changes: -OPTIRAY 320 IV PRN
[2017-03-02 13:14] VITALS: TEMP 36.2; Ht 167.6 cm; Wt 68.5 kg
[2017-03-02] MEDS ORDERED: ARFO15NE NEB (14:07)
--- NOTE | 2017-03-02 14:30 | EMERGENCY ROOM VISIT NOTE ---
History Report prepared by Kaitlin: Ryley Garcia Under the Supervision of: Dr. Abby Medrano M.D. First contact with patient: 14:17 Chief Complaint: URINARY SYMPTOMS Stated Complaint: UTI-SENT BY UROLOGY 'S Nursing Triage Summary: States chronic UTIs for almost a year now has pain across lower back, 5 on pain scale, denies pain with urination, states urine is dark in color and has a foul odor. History of Present Illness The patient is an 82 year old female with a history of chronic UTIs who presents to the Emergency Room with complaints of worsening urinary symptoms that started prior to arrival. Per the patient's daughter, the patient has been having chronic UTIs for about a year now. The patient has seen her urologist many times over the past year, and has been treated with oral antibiotics. She was noted to be here a month ago for a 7-day treatment of antibiotics, and she was recently on Amoxiclav, per the patient's daughter. The patient is currently complaining of a lot of low back pain. She notes that her urine is dark with a foul odor. She denies any fevers or pain with urination. Source of History: patient, family Onset: Prior to arrival Position: other (global - urinary symptoms) Timing: worsening Associated Symptoms: + back pain, No fevers Note: Associated symptoms: Dark, smelly urine. Denies painful urination. Review of Systems See HPI for pertinent positives & negatives. A total of 10 systems reviewed and were otherwise negative. 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 (10) SVT (supraventricular tachycardia) Social History Problems: (1) Tobacco Use Disorder Family History No significant family history Social History Smoking Status: Former Smoker Alcohol Use: heavy Drug Use: none Marital Status: Housing Status: lives with significant other Occupation Status: retired Current/Historical Medications Scheduled Aripiprazole (Abilify), 5 MG PO QAM Aspirin (Aspirin Ec), 81 MG PO DAILY Budesonide (Inhalation) (Pulmicort), 0.5 MG NEB BID Cholecalciferol (Vitamin D3), Unknown Dose PO WK Cyanocobalamin (Vitamin B-12), 1,000 MCG PO QAM Ergocalciferol (Vitamin D 65006 Unit), 50,000 UNIT PO WK Ferrous Sulfate (Ferrous Sulfate), 325 MG PO BIDM Folic Acid (Folvite), 1 MG PO DAILY Home O2 Therapy (Oxygen), 3 LITERS NA HS Losartan Potassium (Losartan Potassium), 25 MG PO DAILY Metoprolol Succ (Toprol Xl) (Toprol-Xl), 50 MG PO DAILY Pantoprazole (Protonix), 40 MG PO BID Sertraline (Zoloft), 75 MG PO DAILY Simvastatin (Simvastatin), 20 MG PO QPM Tiotropium [place] (Spiriva Handihaler), 2 CAP INH DAILY Scheduled PRN Arformoterol Tartrate (Brovana), 1 VIAL NEB BID PRN for Shortness of Breath Allergies Coded Allergies: Latex2 -Systemic Allergic Response (Verified Allergy, Unknown, HIVES, ITCHING SWELLING,, 03/02/17) Lisinopril (Verified Adverse Reaction, Mild, cough, 03/02/17) Physical Exam Vital Signs Date Time Temp Pulse Resp B/P (MAP) Pulse Ox O2 Delivery O2 Flow Rate FiO2 03/02/17 18:17 74 18 158/67 95 03/02/17 17:03 71 18 158/67 95 2.0 03/02/17 15:29 73 03/02/17 15:01 78 22 135/71 03/02/17 13:14 36.2 85 22 131/76 99 Nasal Cannula 2.0 Physical Exam Vital signs reviewed. General: Well-appearing 82 year old elderly female, in no significant distress. HEENT: No scleral icterus, PERRLA, neck supple. Atraumatic. Cardiovascular: Regular rate and rhythm, no extra sounds. Pulmonary: Clear to auscultation bilaterally, normal work of breathing. Abdomen: Soft, nontender, nondistended, positive bowel sounds. Musculoskeletal: Atraumatic, no peripheral edema. Neurologic: Patient awake alert and oriented x 3, full strength in all 4 extremities. Cranial nerves 2 through 12 grossly intact. Skin: Warm, dry, no rash Medical Decision & Procedures ER Provider Diagnostic Interpretation: Radiology results as stated below per my review and radiologist interpretation: RENAL ULTRASOUND CLINICAL HISTORY: Recurrent urinary tract infection. Back pain. COMPARISON STUDY: CTA of the abdomen and pelvis January 17, 2017. TECHNIQUE: Sonography of the kidneys and the urinary bladder was performed. FINDINGS: This exam is mildly compromised by suboptimal penetration. Note is made of fatty infiltration of the liver. There is no hydronephrosis. Right kidney measures 8.6 cm in maximal dimension and the left measures 10.7 cm. Both ureteral jets were identified. No renal calculi or masses are identified by sonography. There is moderate right and mild left renal cortical thinning. A 5.2 x 4.7 cm infrarenal abdominal aortic aneurysm is similar to CTA of January 17, 2017. IMPRESSION: 1. No hydronephrosis. 2. No significant change in size of the 5.2 cm infrarenal abdominal aortic aneurysm since CTA of January 17, 2017. Electronically signed by: Sacha Edward M.D. 03/02/2017 4:57 PM Dictated Date/Time: 03/02/2017 4:54 PM FLUOROSCOPIC IMAGES OF THE LUMBAR SPINE CLINICAL HISTORY: Lower back pain. COMPARISON: Lumbar spine radiographs August 26, [address] December 29, 2016. FLUOROSCOPY TIME: FINDINGS: Intracanalicular electrodes are noted. There are postsurgical findings consistent with L4-L5 discectomy. There is a posterior decompression with bilateral pedicle screws at the L2, L3, L4 and L5 levels. Lucency surrounding the L5 screws is again noted. There is mild levoscoliosis of the lumbar spine. Alignment is otherwise anatomic. Old T12 and L1 compression fractures are unchanged. There is no acute fracture. . IMPRESSION: 1. No acute lumbar spine fracture. 2. Stable postoperative findings within the lumbar spine. Lucency surrounding the L5 pedicle screws may reflect loosening. 3. Old T12 and L1 compression fractures. Electronically signed by: Sacha Edward M.D. 03/02/2017 5:40 PM Dictated Date/Time: 03/02/2017 5:37 PM Laboratory Results 03/02/17 15:05 Red Blood Count 3.96, Mean Corpuscular Volume 89.9, Mean Corpuscular Hemoglobin 26.3, Mean Corpuscular Hemoglobin Concent 29.2, Mean Platelet Volume 10.0, Neutrophils (%) (Auto) 74.7, Lymphocytes (%) (Auto) 9.3, Monocytes (%) (Auto) 11.7, Eosinophils (%) (Auto) 3.8, Basophils (%) (Auto) 0.2, Neutrophils # (Auto ) 6.81, Lymphocytes # (Auto) 0.85, Monocytes # (Auto) 1.07, Eosinophils # (Auto ) 0.35, Basophils # (Auto) 0.02 03/02/17 15:05 Test 03/02/17 14:51 03/02/17 15:05 Urine Color YELLOW Urine Appearance CLEAR (CLEAR) Urine pH 6.0 (4.5-7.5) Urine Specific [place] 1.018 (1.000-1.030) Urine Protein NEG (NEG) Urine Glucose (UA) NEG (NEG) Urine Ketones NEG (NEG) Urine Occult Blood NEG (NEG) Urine Nitrite NEG (NEG) Urine Bilirubin NEG (NEG) Urine Urobilinogen NEG (NEG) Urine Leukocyte Esterase NEG (NEG) White Blood Count 9.13 K/uL (4.8-10.8) Red Blood Count 3.96 M/uL (4.2-5.4) Hemoglobin 10.4 g/dL (12.0-16.0) Hematocrit 35.6 % (37-47) Mean Corpuscular Volume 89.9 fL (80-100) Mean Corpuscular Hemoglobin 26.3 pg (25-34) Mean Corpuscular Hemoglobin Concent 29.2 g/dl (32-36) Platelet Count 263 K/uL (130-400) Mean Platelet Volume 10.0 fL (7.4-10.4) Neutrophils (%) (Auto) 74.7 % Lymphocytes (%) (Auto) 9.3 % Monocytes (%) (Auto) 11.7 % Eosinophils (%) (Auto) 3.8 % Basophils (%) (Auto) 0.2 % Neutrophils # (Auto) 6.81 K/uL (1.4-6.5) Lymphocytes # (Auto) 0.85 K/uL (1.2-3.4) Monocytes # (Auto) 1.07 K/uL (0.11-0.59) Eosinophils # (Auto) 0.35 K/uL (0-0.5) Basophils # (Auto) 0.02 K/uL (0-0.2) RDW Standard Deviation 50.9 fL (36.4-46.3) RDW Coefficient of Variation 15.3 % (11.5-14.5) Immature Granulocyte % (Auto) 0.3 % Immature Granulocyte # (Auto) 0.03 K/uL (0.00-0.02) Anion Gap 6.0 mmol/L (3-11) Est Creatinine Clear Calc Drug Dose 42.4 ml/min Estimated GFR () 62.4 Estimated GFR (Non- 53.8 BUN/Creatinine Ratio 14.5 (10-20) Calcium Level 8.9 mg/dl (8.5-10.1) Magnesium Level 2.4 mg/dl (1.8-2.4) Total Bilirubin 0.4 mg/dl (0.2-1) Direct Bilirubin < 0.1 mg/dl (0-0.2) Aspartate Amino Transf (AST/SGOT) 21 U/L (15-37) Alanine Aminotransferase (ALT/SGPT) 21 U/L (12-78) Alkaline Phosphatase 85 U/L (45-117) Total Protein 7.5 gm/dl (6.4-8.2) Albumin 3.2 gm/dl (3.4-5.0) Laboratory results per my review. Medications Administered Medications (Trade) Dose Ordered Sig/Lupe Route Start Time Stop Time Status Last Admin Dose Admin Sodium Chloride 250 ml @ 999 mls/hr Q16M STAT IV 03/02/17 14:43 03/02/17 14:58 DC 03/02/17 14:43 999 MLS/HR Sodium Chloride 1,000 ml @ 125 mls/hr Q8H STAT IV 03/02/17 14:43 03/02/17 19:25 DC 03/02/17 14:43 125 MLS/HR ED Course 1423: Past medical records reviewed. The patient was evaluated in room B5. A complete history and physical examination was performed. 1443: Ordered NSS 1000 ml @ 125 mls/hr IV, NSS 250 ml @ 999 mls/hr IV. 1820: Upon reevaluation, the patient appeared to have improvement of her symptoms. I discussed findings with her. She verbalized agreement of the treatment plan. She was discharged home. Medical Decision Differential diagnosis: Etiologies such as renal colic, appendicitis, diverticulitis, mesenteric ischemia, aortic pathology, infections, inflammatory bowel disease, PUD, biliary pathology, UTI, as well as others were entertained. This patient was evaluated and appeared to be in no significant distress. IV access was obtained and laboratory work was drawn. The patient was placed on the court recording monitor and hydrated with normal saline solution. A catheterized urine specimen was obtained and is negative for infection. Laboratory work is fairly unrevealing. A renal ultrasound was performed and is negative for significant obstruction. Patient was informed of the findings. She was discharged in care of her daughter and will follow-up with her PCP for further management. Medication Reconcilliation Current Medication List: was personally reviewed by me Blood Pressure Screening Patient's blood pressure: Elevated blood pressure Blood pressure disposition: Elevated BP felt to be situational Impression Primary Impression: Dysuria Scribe Attestation The scribe's documentation has been prepared under my direction and personally reviewed by me in its entirety. I confirm that the note above accurately reflects all work, treatment, procedures, and medical decision making performed by me. Departure Information Dispostion Home / Self-Care Referrals Emigdio Draper D.O. (PCP) Patient Instructions My [facility] Additional Instructions Diagnosis: Dysuria Drink plenty of fluids. Follow up with your doctor this week for reevaluation. Return to the ED for worsening of symptoms or any medical concerns.
[2017-03-02] MEDS ORDERED: SODIUM CHLORIDE 0.9% 1000ML 1,000 ML IV STA (14:43)
[2017-03-02] MEDS ORDERED: SODIUM CHLORIDE 0.9% 250ML 250 ML IV STA (14:43)
[2017-03-02 15:45] LABS: URINE APPEARANCE CLEAR (CLEAR); URINE BILIRUBIN NEG (NEG); URINE COLOR YELLOW; URINE NITRITE NEG (NEG); URINE SPECIFIC GRAVITY 1.018 (1.000-1.030); UROBILINOGEN NEG (NEG); ZZURINE CULT IF INDIC CATH NO
[2017-03-02 15:53] LABS: MANUAL MICROSCOPIC REQUIRED? NO; REVIEW REQ? NO
[2017-03-02 15:56] LABS: BASO % 0.2 %; BASO ABS # 0.02 K/uL (0-0.2); COMPLETE YES; EOS % 3.8 %; HEMATOCRIT 35.6 % (37-47); IG% 0.3 %; LYMPH % 9.3 %; LYMPH ABS # 0.85 K/uL (1.2-3.4); MEAN CELL VOLUME 89.9 fL (80-100); MEAN CORPUSCULAR HEMOGLOBIN 26.3 pg (25-34); MEAN CORPUSCULAR HGB CONC 29.2 g/dl (32-36); MONO % 11.7 %; NEUT % 74.7 %; PLATELET COUNT 263 K/uL (130-400); RED BLOOD COUNT 3.96 M/uL (4.2-5.4); WHITE BLOOD COUNT 9.13 K/uL (4.8-10.8)
[2017-03-02 15:58] LABS: ALT/SGPT 21 U/L (12-78); AST/SGOT 21 U/L (15-37); BLOOD UREA NITROGEN 14 mg/dl (7-18); BUN/CREATININE RATIO 14.5 (10-20); CALCIUM 8.9 mg/dl (8.5-10.1); CARBON DIOXIDE 32 mmol/L (21-32); CHLORIDE 108 mmol/L (98-107); CREATININE 0.99 mg/dl (0.60-1.20); GLUCOSE 124 mg/dl (70-99); MAGNESIUM 2.4 mg/dl (1.8-2.4); POTASSIUM 3.9 mmol/L (3.5-5.1); SODIUM 146 mmol/L (136-145)
[2017-03-02 16:00] LABS: ALKALINE PHOSPHATASE 85 U/L (45-117)
--- NOTE | 2017-03-02 16:58 | DIAGNOSTIC IMAGING REPORT ---
RENAL ULTRASOUND CLINICAL HISTORY: Recurrent urinary tract infection. Back pain. COMPARISON STUDY: CTA of the abdomen and pelvis January 17, 2017. TECHNIQUE: Sonography of the kidneys and the urinary bladder was performed. FINDINGS: This exam is mildly compromised by suboptimal penetration. Note is made of fatty infiltration of the liver. There is no hydronephrosis. Right kidney measures 8.6 cm in maximal dimension and the left measures 10.7 cm. Both ureteral jets were identified. No renal calculi or masses are identified by sonography. There is moderate right and mild left renal cortical thinning. A 5.2 x 4.7 cm infrarenal abdominal aortic aneurysm is similar to CTA of January 17, 2017. IMPRESSION: 1. No hydronephrosis. 2. No significant change in size of the 5.2 cm infrarenal abdominal aortic aneurysm since CTA of January 17, 2017. Electronically signed by: Sacha Edward M.D. 03/02/2017 4:57 PM Dictated Date/Time: 03/02/2017 4:54 PM
--- NOTE | 2017-03-02 17:42 | DIAGNOSTIC IMAGING REPORT ---
FLUOROSCOPIC IMAGES OF THE LUMBAR SPINE CLINICAL HISTORY: Lower back pain. COMPARISON: Lumbar spine radiographs August 26, [address] December 29, 2016. FLUOROSCOPY TIME: FINDINGS: Intracanalicular electrodes are noted. There are postsurgical findings consistent with L4-L5 discectomy. There is a posterior decompression with bilateral pedicle screws at the L2, L3, L4 and L5 levels. Lucency surrounding the L5 screws is again noted. There is mild levoscoliosis of the lumbar spine. Alignment is otherwise anatomic. Old T12 and L1 compression fractures are unchanged. There is no acute fracture. . IMPRESSION: 1. No acute lumbar spine fracture. 2. Stable postoperative findings within the lumbar spine. Lucency surrounding the L5 pedicle screws may reflect loosening. 3. Old T12 and L1 compression fractures. Electronically signed by: Sacha Edward M.D. 03/02/2017 5:40 PM Dictated Date/Time: 03/02/2017 5:37 PM
[2017-03-02 18:17] VITALS: BP 158/67; PULSE 74; O2SAT 95
== END 2017-03-02 18:19 | disposition home or self-care (01) ==
LOC: C.EDB 13:15
DX: R30.0 Dysuria (principal); I71.4 Abdominal aortic aneurysm, without rupture; R47.01 Aphasia; I50.9 Heart failure, unspecified; I11.0 Hypertensive heart disease with heart failure; J44.9 Chronic obstructive pulmonary disease, unspecified; E78.5 Hyperlipidemia, unspecified; M79.1 Myalgia; M96.1 Postlaminectomy syndrome, not elsewhere classified; I47.1 Supraventricular tachycardia; F10.10 Alcohol abuse, uncomplicated; Z87.440 Personal history of urinary (tract) infections; Z87.891 Personal history of nicotine dependence; Z79.82 Long term (current) use of aspirin

== ENCOUNTER → 2017-03-06 | Outpatient (CLI) | payer OTHER, MEDICARE ==
[~2017-03-06] MED LIST changes: +ARFO15NE NEB; -ERTA1INJ IV; -IPRASOL4 INH; -ONDA4TAB10 SL
--- NOTE | 2017-03-06 13:56 | DIAGNOSTIC IMAGING REPORT ---
CHEST 2 VIEWS ROUTINE CLINICAL HISTORY: R06.02 Shortness of [id number] COMPARISON STUDY: 01/25/2017 FINDINGS: The cardiac and mediastinal contours remain stable. There is radiographic evidence of emphysema. Spinal electrodes are visualized. There are postsurgical changes within the lumbar spine. There are multiple lower thoracic compression deformities. There is no acute rectal consolidation. There is no failure. There are no pleural effusions. IMPRESSION: Pulmonary emphysema. No acute findings. Electronically signed by: Jason Yap M.D. 03/06/2017 1:54 PM Dictated Date/Time: 03/06/2017 1:54 PM
== END | disposition home or self-care (01) ==
LOC: C.RAD1850 12:51
PROVIDERS: ATTEND Physician Assistant
DX: M54.9 Dorsalgia, unspecified (principal); R06.02 Shortness of breath; J43.9 Emphysema, unspecified

== ENCOUNTER → 2017-03-12 | Outpatient (CLI) | payer OTHER, MEDICARE ==
[~2017-03-12] MED LIST changes: +OPTIRAY 320 IV PRN
--- NOTE | 2017-03-12 14:46 | DIAGNOSTIC IMAGING REPORT ---
CT UROGRAM CLINICAL HISTORY: Microscopic hematuria. Incontinence. Dysuria. COMPARISON STUDY: Abdominal CT dated 01/17/2017. TECHNIQUE: Before and following the IV administration of 120 cc of Optiray 320, CT urogram of the abdomen and pelvis is performed from the lung bases to the proximal femora. Images are reviewed in the axial, sagittal, and coronal planes. IV contrast was administered without complication. A dose lowering technique was utilized adhering to the principles of ALARA. Examination is graded by streak artifact from a neurostimulator device and orthopedic hardware. CT DOSE: 1282.54 mGycm FINDINGS: Lung bases: The heart is normal in size and without pericardial effusion. The coronary arteries are densely calcified. The lung bases are clear. Liver: The contrast-enhanced liver is normal in size, contour, and attenuation. There is no intrahepatic biliary ductal dilatation. The hepatic veins and portal veins are patent. Gallbladder: Unremarkable. Spleen: Normal in size and attenuation. Pancreas: There is moderate glandular atrophy of the pancreas. Scattered parenchymal calcifications are incidentally noted. Adrenal glands: Unremarkable. Kidneys and ureters: The contrast enhanced kidneys demonstrate cortical atrophy and are without hydronephrosis. Cortical scarring is present in the right lower pole. There are no renal calculi identified on the unenhanced images. The kidneys enhance and excrete symmetrically. There is no enhancing renal cortical mass lesion identified. There is no evidence of urothelial lesion within the renal pelvis bilaterally or along the course of either ureter. Abdominal vasculature: There is advanced atherosclerotic calcification of the abdominal aorta. An infrarenal abdominal aneurysm is similar to previous. This measures 5.1 cm in AP diameter and 5.2 cm in transverse diameter. Bowel: The small bowel and colon are normal in course and caliber. The appendix is well-visualized and normal. Peritoneum: There is no intraperitoneal free air or abdominal ascites. Lymphadenopathy: None. Pelvic viscera: The bladder, uterus, and adnexa are normal as visualized. Skeletal structures: The skeletal structures are osteopenic. No lytic or blastic bony lesions are seen. 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 Extensive postoperative change is seen in the lumbar spine. There is lumbar sacral spondylosis and scoliosis. A neurostimulator device is present within the right gluteal soft tissues. Intrathecal leads are in place. There are healed bilateral rib fractures. Compression deformities are noted in T11, T12, and L1. IMPRESSION: 1. Unremarkable CT urogram. 2. There are no acute infectious or inflammatory findings in the abdomen or pelvis. 3. A 5.1 x 5.2 cm infrarenal abdominal aneurysm is similar to previous. 4. 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 5. Additional findings as above. Electronically signed by: Manan Rodney M.D. 03/12/2017 2:44 PM Dictated Date/Time: 03/12/2017 2:36 PM
== END | disposition home or self-care (01) ==
LOC: C.CTS 13:54
PROVIDERS: ATTEND Urology
DX: R31.29 Other microscopic hematuria (principal); R30.0 Dysuria; R32 Unspecified urinary incontinence; I71.4 Abdominal aortic aneurysm, without rupture

== ENCOUNTER → 2017-04-10 | Outpatient (CLI) | payer OTHER, MEDICARE ==
[~2017-04-10] MED LIST changes: -OPTIRAY 320 IV PRN
--- NOTE | 2017-04-10 15:37 | DIAGNOSTIC IMAGING REPORT ---
CHEST 2 VIEWS ROUTINE HISTORY: ASTHMA, CHRONIC OBSTRUCTIVE PULMONARY DISEASE COMPARISON: Chest 03/06/2017. FINDINGS: The lungs remain hyperexpanded with apical predominant emphysematous changes. No pleural effusions. No pneumothorax. The heart is normal in size. The lungs are clear. Spinal stimulator leads are again noted. Old compression deformities seen within the lower thoracic spine remain unchanged. IMPRESSION: No significant change compared to the prior study. No acute process. Emphysema. Electronically signed by: Daniel Cummings M.D. 04/10/2017 3:35 PM Dictated Date/Time: 04/10/2017 3:32 PM
== END | disposition home or self-care (01) ==
LOC: C.RAD1850 15:10
PROVIDERS: ATTEND Physician Assistant
DX: J45.909 Unspecified asthma, uncomplicated (principal); J44.9 Chronic obstructive pulmonary disease, unspecified; Z99.81 Dependence on supplemental oxygen

== ENCOUNTER → 2017-08-22 | Outpatient (CLI) | payer OTHER, MEDICARE ==
[~2017-08-22] MED LIST changes: -FOLI1TAB7 PO; +FOLI1TAB8 PO; -METO50TA7 PO; +METO50TA8 PO
--- NOTE | 2017-08-22 15:03 | DIAGNOSTIC IMAGING REPORT ---
CHEST 2 VIEWS ROUTINE HISTORY: Cough. COMPARISON: Chest 04/10/2017. FINDINGS: The lungs are hyperexpanded with apical predominant emphysematous changes. No pneumothorax. No pleural effusions. The heart is normal in size. Thoracic spinal stimulators are noted. Mild interstitial thickening at the lung bases persist. No evidence for pulmonary edema. No new focal lung consolidations to suggest pneumonia. Posterior fusion hardware seen within the lumbar spine. Mild to moderate compression of 4 is within the lower thoracic spine, unchanged. IMPRESSION: No significant change compared to the prior study. No acute process. Emphysema and chronic bibasilar interstitial thickening persists. Electronically signed by: Daniel Cummings M.D. 08/22/2017 3:02 PM Dictated Date/Time: 08/22/2017 3:00 PM
== END | disposition home or self-care (01) ==
LOC: C.RAD1850 14:42
PROVIDERS: ATTEND Physician Assistant
DX: R05 Cough (principal); J43.9 Emphysema, unspecified